=== PATIENT | female | born 1995 | race Caucasian/White ===

== ENCOUNTER 2021-07-30 09:35 | Outpatient (REF) | payer OTHER, SELFPAY | END 2021-07-30 09:36 | disposition home or self-care (01) | LOC: HO.LAB 09:35 | PROVIDERS: PCP Internal Medicine; Visit Provider Internal Medicine | DX: Z20.822 Contact with and (suspected) exposure to COVID-19 (principal) | CPT/HCPCS: C9803; U0003; U0005 ==

== ENCOUNTER 2023-11-17 10:35 | Emergency (ER) | payer OTHER, SELFPAY ==
[2023-11-17 10:48] VITALS: BP 150/97; PULSE 77; RESP 18; TEMP 37.1; O2SAT 99; BMI 27.5
[2023-11-17 15:06] VITALS: BP 147/81; PULSE 78; RESP 18; TEMP 36.9; O2SAT 98
--- NOTE | 2023-11-17 15:11 | PC.NURSE ---
Pt brought in to be re-evaled in traige, pt told further imaging would be ordered, pt stated at this time she was refusing further work up and was going to leave and go elsewhere, education and emotional support provided to patient, pt still continues to want to leave at this time.
== END 2023-11-17 15:12 | disposition left against medical advice (07) ==
PROVIDERS: Emergency Provider Emergency Medicine; PCP Internal Medicine
DX: M54.50 Low back pain, unspecified (principal)
CPT/HCPCS: 99281

== ENCOUNTER 2025-01-11 15:50 | Outpatient (REF) | payer OTHER, SELFPAY ==
--- NOTE | 2025-01-11 | PFT_ITS ---
Flows: FEV1: 100 % of predicted at 3.36 L FVC: 98 % of predicted at 3.86 L FEV1/FVC: 87 % Bronchodilator response: Absent Volumes: Total lung capacity: 106 % of predicted at 5.59 L Residual volume: 146 % of predicted at 1.72 L Slow vital capacity: 95 % of predicted at 3.88 L Expiratory reserve volume: 34 % of predicted at 0.46 L Diffusion capacity: Normal Impression: No obstructive or restrictive ventilatory defect. No bronchodilator response. Decreased expiratory reserve volume suggests extrathoracic restriction likely secondary to abdominal obesity. MTDD
[2025-01-11 10:43] VITALS: PULSE 69; O2SAT 99
--- OUTSIDE RECORDS SUMMARY | 2025-01-11 15:52 | XMS_ITS | Encounter Summary ---
Author Organization [employer] Address [address] [facility] [address] [place] [address] Care Team Providers Care Metal Buggy Operator Name Role Phone Harris Hanks MD Primary Care Prov ider Reason for Referral * Consultation (Routine) - Closed Specialty Diagnoses / Procedures Referred By Contac t Referred To Contact Physical Therapy Diagnoses Chronic right-sided low back pain with right-sided sciatica Harris Hanks MD [address] [place] [phone] Phone: tel: fax: [facility] [address] [place] [address] Phone: tel: fax: Referral ID Status Reason Start Date Expiration Date V isits Requested Visits Authorized [id number] Closed Specialty Services Required 12/28/2024 12/28/2025 1 1 * PFT (Routine) - Authorized Specialty Diagnoses / Procedures Referred By Contac t Referred To Contact Diagnoses Chronic cough Procedures Pulmonary Function Test Harris Hanks MD [address] [place] [id number] Phone: tel: fax: [address] Phone: tel: fax: Referral ID Status Reason Start Date Expiration Date V isits Requested Visits Authorized [id number] Authorized 12/28/2024 12/28/2025 1 1 Encounter Details Date Type Department Care Team (Late st Contact Info) Description 12/28/2024 11:30 AM EST Office Visit [facility] MED & PEDS [address] [place] [address] Harris Hanks MD [address] [place] [address] Chronic right-sided low back pain with right-sided sciatica (Primary Dx); Gastroesophageal reflux disease without esophagitis; Chronic cough; Obesity (BMI 30-39.9) Social History Tobacco Use Types Packs/Day Years Used Date Smoking Tobacco: Never Passive Smoke Exposure: Never Smokeless Tobacco: Never Alcohol Use Standard Drinks/Week Comments Yes 0 (1 standard drink = 0.6 oz pur e alcohol) social vodka Depression Answer Date Recorded Patient Health Questionnaire-9 Score 4 12/28/2024 Patient Health Questionnaire-9 Score 4 12/28/2024 Last PHQ-9: Questionnaire Data Not on file 0 12/28/2024 Housing Stability Answer Date Recorded What is your housing situation today? I have yudy deng 12/21/[address] you li ve. Do you have problems with any of the following? None of the above 12/21/2024 Food Insecurity Answer Date Recorded Within the past 12 months, y ou worried that your food would run out before you got money to buy more: Never True 12/21/2024 Within the past 12 months,th e food you bought just didn't last and you didn't have enough money to get more: Never True Transportation Answer Date Recorded In the past 12 months, has l ack of transportation kept you from medical appts, meetings, work or from getting things needed for daily living? No 12/21/2024 Utilities Answer Date Recorded In the past 12 months, has t he electric, gas, oil or water company threatened to shut off services in your home? No 12/21/2024 Depression Answer Date Recorded Patient Health Questionnaire-2 Score 0 12/28/2024 Internet Access Answer Date Recorded Internet Access Q1 Yes 12/21/2024 Internet Access Q2 Not on file 12/21/2024 Comments No Sex and Gender Information Value Date Recorded Sex Assigned at Female 01/13/2023 2:16 PM EST Legal Sex Female 2:06 PM EST Gender Identity Female 01/13/2023 2:16 PM EST Sexual Orientation Straight 01/13/2023 2: 16 PM EST documented as of this encounter Last Filed Vital Signs Vital Sign Reading Time Taken Comments Blood Pressure 132/80 12/28/2024 11:22 AM EST Pulse 84 12/28/2024 11:22 AM EST Temperature 36.6 ??C (97.9 ??F) 12/28/2024 11:[address] Respiratory Rate 20 12/28/2024 11:22 AM EST Oxygen Saturation 99% 12/28/2024 11:22 AM EST Inhaled Oxygen Concentration - - Weight 85 kg (187 lb 6.4 oz) 12/28/2024 11:22 AM EST Height 166 cm (5' 5.35 ) 12/28/2024 11:22 AM EST Body Mass Index 30.85 12/28/2024 11:22 AM EST documented in this encounter Progress Notes * Harris Garcia MD - 12/28/2024 11:30 AM EST Subjective Patient ID: Lori Mejia is a 29 y.o. female who presents for No chief complaint on file.. Cough This is a chronic problem. The cough is Non-productive. Pertinent negatives include no chills, ear congestion, fever or nasal congestion. Review of Systems Constitutional: Negative for chills and fever. Respiratory: Positive for cough. Objective Physical Exam Constitutional: Appearance: Normal appearance. HENT: Right Ear: Tympanic membrane, ear canal and external ear normal. There is no impacted cerumen. Left Ear: Tympanic membrane, ear canal and external ear normal. There is no impacted cerumen. Cardiovascular: Rate and Rhythm: Normal rate and regular rhythm. Heart sounds: No murmur heard. Pulmonary: Effort: Pulmonary effort is normal. No respiratory distress. Breath sounds: No stridor. No wheezing or rhonchi. Abdominal: General: Abdomen is flat. There is no distension. Palpations: There is no mass. Tenderness: There is no abdominal tenderness. Hernia: No hernia is present. Musculoskeletal: General: Normal range of motion. Cervical back: Normal range of motion. No rigidity or tenderness. Lymphadenopathy: Cervical: No cervical adenopathy. Neurological: General: No focal deficit present. Mental Status: She is alert and oriented to person, place, and time. Psychiatric: Mood and Affect: Mood normal. Behavior: Behavior normal. Assessment/Plan Problem List Items Addressed This Visit Chronic right-sided low back pain with right-sided sciatica - Primary Will refer to PT, encouraged to avoid heavy lofting, wear appropriate shoes Relevant Orders Referral to Physical Therapy Gastroesophageal reflux disease without esophagitis Will provide omeprazole, encouraged lifestyle modification, follow up in 1 month Chronic cough Will order Pft, could be related to gerd, follow up in 1 month Relevant Orders Pulmonary Function Test Other Visit Diagnoses Obesity (BMI 30-39.9) Relevant Orders CBC auto differential Comprehensive Metabolic Panel Lipid Panel, Standard TSH W/Reflex to FT4 Hemoglobin A1c documented in this encounter Miscellaneous Notes * Assessment & Plan Note - Harris Garcia MD - 12/28/2024 12:05 PM ESTAssociated Problem(s): Chronic cough Will order Pft, could be related to gerd, follow up in 1 month * Assessment & Plan Note - Harris Garcia MD - 12/28/2024 12:04 PM ESTAssociated Problem(s): Gastroesophageal reflux disease without esophagitis Will provide omeprazole, encouraged lifestyle modification, follow up in 1 month * Assessment & Plan Note - Harris Garcia MD - 12/28/2024 12:02 PM ESTAssociated Problem(s): Chronic right-sided low back pain with right-sided sciatica Will refer to PT, encouraged to avoid heavy lofting, wear appropriate shoes documented in this encounter Plan of Treatment Upcoming Encounters Date Type Department Care Team (Late st Contact Info) Description 01/24/2025 10:45 AM EST Office Visit [facility] MED & PEDS [address] [place] [address] Dayo Truong MD [address] [place] [address] 01/25/2025 11:00 AM EST Office Visit [facility] ADULT DENTAL [address], [place] [phone] Lukas Coyne DMD [address] [place] [address] 01/26/2025 8:30 AM EST Telemedicine [facility] MED [facility] PED[facility] [address] [place], [place] [phone] Harris Hanks MD [address] [place] [address] 04/19/2025 4:00 PM EDT Office Visit [facility] [address] [place], [place] [phone] Mia Christian [address] [place], [place] [phone] Scheduled Orders Name Type Priority Associated Diagnoses Orde r Schedule Pulmonary Function Test PFT Routine Chronic cough Expected: 12/28/2024, Expires: 06/27/2025 CBC auto differential Lab Routine Obesity (BMI 30-39.9) Expected: 12/28/2024 (Approximate), Expires: 12/28/2025 Comprehensive Metabolic Panel Lab Routine Obesity (BMI 30-39.9) Expected: 12/28/2024 (Approximate), Expires: 12/28/2025 Lipid Panel, Standard Lab Routine Obesity (BMI 30-39.9) Expected: 12/28/2024 (Approximate), Expires: 12/28/2025 TSH W/Reflex to FT4 Lab Routine Obesity (BMI 30-39.9) Expected: 12/28/2024 (Approximate), Expires: 12/28/2025 Hemoglobin A1c Lab Routine Obesity (BMI 30-39.9) Expected: 12/28/2024 (Approximate), Expires: 12/28/2025 Scheduled Referrals Name Type Priority Associated Diagnoses Orde r Schedule Referral to Physical Therapy Outpatient Referral Routine Chronic right-sided low back pain with right-sided sciatica Expected: 12/28/2024 (Approximate), Expires: 12/28/2025 documented as of this encounter Visit Diagnoses Diagnosis Chronic right-sided low back pain with right-sided sciatica- Primary Gastroesophageal reflux disease without esophagitis Esophageal reflux Chronic cough Cough Obesity (BMI 30-39.9) documented in this encounter Additional Health Concerns Assessment Noted Time PHQ-9 Depression Total Score: 4 12/28/19 25 11:24 AM EST documented as of this encounter Care Teams Metal Buggy Operator Relationship Specialty Start Date End Date Harris Hanks MD [address] [place] [id number] PCP - General Internal Medicine 11/10/24 documented as of this encounter
--- OUTSIDE RECORDS SUMMARY | 2025-01-11 15:52 | XMS_ITS | Encounter Summary ---
Author Organization [employer] Address [address] [facility] [address] [place] [address] Care Team Providers Care Degree Clerk Name Role Phone Harris Hanks MD Primary Care Prov ider Reason for Visit * Reason Comments Filling Patient presents tod ay for fillings Yin MONSIVAIS Encounter Details Date Type Department Care Team (Late st Contact Info) Description 01/02/2025 3:00 PM EST Office Visit [facility] ADULT DENTAL [address] [place], [place] [phone] Lukas Coyne, DMD [address] [place], [place] [phone] Dental caries (Primary Dx) Social History Tobacco Use Types Packs/Day Years [...] PM EST documented as of this encounter Progress Notes * Lukas Coyne DMD - 01/02/2025 3:00 PM EST Patient ID: Lori Mejia is a 29 y.o. female. Time Out: Timeout Date: 01/02/25, Timeout Time: 1517 (JOJO #30,31) Location: [facility] Tooth: #30 and #31 Procedure: Roman Catholic Verified the above with patient, senior it assistant, and provider. Confirmed via patient's chart, intraorally and by radiographs. Automotive Technician: not applicable Chief Complaint Patient presents with Filling Patient presents today for fillings Yin MONSIVAIS Medical Hx: Vitals: There were no vitals taken for this visit. Medications, Med Hx reviewed with patient and updated in chart. Consent Obtained: The risks, benefits, indications, potential complications, and alternatives were explained to the patient and informed consent was obtained with good understanding. Treatment Provided: Dental procedures in this visit [id number] - RESTORATIVE - RESIN-BASED COMPOSITE RESTORATIONS - DIRECT - RESIN-BASED COMPOSITE - ONE SURFACE, POSTERIOR 31 O (Completed) Service provider: Lukas Coyne DMD Billing provider: Lukas Coyne DMD [id number] - RESTORATIVE - RESIN-BASED COMPOSITE RESTORATIONS - DIRECT - RESIN-BASED COMPOSITE - ONE SURFACE, POSTERIOR 30 O (Completed) Service provider: Lukas Coyne DMD Billing provider: Lukas Coyne DMD [id number] - ADJUNCTIVE GENERAL SERVICES - PROFESSIONAL VISITS - CASE PRESENTATION, SUBSEQUENT TO DETAILED AND EXTENSIVE TREATMENT PLANNING (Completed) Service provider: Lukas Coyne DMD Billing provider: Lukas Coyne DMD Diagnosis: primary caries into mid layer of dentin #31-O and recurrent caries into dentin #30-O Pt asymptomatic Topical: 20% Benzocaine Anesthesia: 2% Lidocaine (Xylocaine) w/ 1:100,000 epinephrine and 4% Septocaine (Articaine) w/ 1:200,000 epinephrine Number of Cartridges: 1 of each Injection Type: Buccal infiltration and Inferior alveolar nerve block Confirmed profound anesthesia. Isolation: high speed suction, cotton rolls, and cheek guard Prep: All caries removed, Existing mandaeism removed, and Preparation finalized Elected to leave B amalgam on #31. Sound at this time. Will monitor. Note distal staining on #19. Not cavitated and radiographically appears isolated to middle of enamel. Will monitor. Matrix: None Etch: 37% Phosphoric Acid Etch Desensitizer: Gluma Liner/Base: None Duran: I-Duran Roman Catholic Material: Voco Grandioso Packable Shade: A2 Polished. Occlusion & contacts verified. Patient satisfied with comfort and esthetics. Patient tolerated procedure well. Post-operative instructions were given. Patient departed alert, oriented, and in stable condition. NV: EXT #1,16,17,32 Psychiatric Social Worker: Yin Lazaro Dentist: uLkas Coyne DMD documented in this encounter Plan of Treatment Upcoming Encounters Date Type Department Care Team (Late st Contact Info) Description 01/24/2025 10:45 AM EST Office Visit [facility] MED [facility] PEDS [address] [place] [address] Dayo Truong MD [address] [place] [address] 01/25/2025 11:00 AM EST Office Visit [facility] ADULT DENT[facility] [address] [place] [address] Lukas Coyne DMD [address] [place] [address] 01/26/2025 8:30 AM EST Telemedicine [facility] MED [facility] PEDS [address] [place] [address] Harris Hanks MD [address] [place] [address] 04/19/2025 4:00 PM EDT Office Visit [facility] [address] [place], [place] [phone] Mia Christian [address] [place], [place] [phone] documented as of this encounter Procedures Procedure Name Priority Date/Time Associated Diagnosis Comments 30 O RESIN-BASED COMPOSITE - 1 SURF, POSTERIOR Routine 01/02/2025 3:00 PM EST Dental caries 31 O RESIN-BASED COMPOSITE - 1 SURF, POSTERIOR Routine 01/02/2025 3:00 PM EST Dental caries CASE PRESENTATION, DETAILED AND EXTENSIVE TREATMENT PLANNING Routine 01/02/2025 3:00 PM EST Dental caries documented in this encounter Visit Diagnoses Diagnosis Dental caries- Primary Unspecified dental caries documented in this encounter Additional Health Concerns Assessment Noted Time PHQ-9 Depression Total Score: 4 12/28/19 25 11:24 AM EST documented as of this encounter Care Teams Degree Clerk Relationship Specialty Start Date End Date Harris Hanks MD [address] [place] [address] PCP - General Internal Medicine 11/10/24 documented as of this encounter
--- OUTSIDE RECORDS SUMMARY | 2025-01-11 15:52 | XMS_ITS | Encounter Summary ---
Author Organization [employer] Address [address] [place] [address] Care Team Providers Care Steam Shovel Oiler Name Role Phone Harris Hanks MD Primary Care Prov ider Encounter Details Date Type Department Care Team (Late st Contact Info) Description 12/27/2024 Orders Only [facility] MEDICINE [address] [place] [address] Provider, MD Gin Social History Tobacco Use Types Packs/Day Years [...] PM EST documented as of this encounter Plan of Treatment Upcoming Encounters Date Type Department Care Team ([facility] st Contact Info) Description 01/24/2025 10:45 AM EST Office Visit [facility] MED & PEDS [address] [place] [address] Dayo Truong MD [address] [place] [address] 01/25/2025 11:00 AM EST Office Visit [facility] ADULT DENTAL [address] [place] [address] Lukas Coyne DMD [address] [place] [address] 01/26/2025 8:30 AM EST Telemedicine [facility] MED & PEDS [address] [place] [address] Harris Hanks MD [address] [place] [address] 04/19/2025 4:00 PM EDT Office Visit [facility] DENTAL [address] [place], [place] [phone] Mia Christian [address] [place], [place] [phone] documented as of this encounter Procedures Procedure Name Priority Date/Time Associated Diagnosis Comments HM PAP/HPV Routine 04/09/2022 7:50 AM EDT documented in this encounter Results * HM PAP/HPV (04/09/2022 7:50 AM EDT) us Historical Provider HEALTH MAINTENANCE Final Result documented in this encounter Visit Diagnoses Not on filedocumented in this encounter Care Teams Steam Shovel Oiler Relationship Specialty Start Date End Date Harris Hanks MD [address] [place] [address] PCP - General Internal Medicine 11/10/24 documented as of this encounter
--- OUTSIDE RECORDS SUMMARY | 2025-01-11 15:52 | XMS_ITS | Encounter Summary ---
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 (Primary Dx); Dental caries Social History Tobacco Use Types Packs/Day Years Used Date Smoking Tobacco: Never Passive Smoke Exposure: Never Smokeless Tobacco: Never Alcohol Use Standard Drinks/Week Comments Yes 0 (1 standard drink = 0.6 oz pur e alcohol) social vodka Comments No Sex and Gender Information Value Date Recorded Sex Assigned at Female 01/13/2023 2:16 PM EST Legal Sex Female 2:06 PM EST Gender Identity Female 01/13/2023 2:16 PM EST Sexual Orientation Straight 01/13/2023 2: 16 PM EST documented as of this encounter Last Filed Vital Signs Vital Sign Reading Time Taken Comments Blood Pressure 120/82 12/13/2024 3:42 PM EST Pulse - - Temperature - - Respiratory Rate - - Oxygen Saturation - - Inhaled Oxygen Concentration - - Weight - - Height - - Body Mass Index - - documented in this encounter Progress Notes * Lukas Coyne DMD - 12/13/2024 2:30 PM EST Patient ID: Lori Mejia is a 29 y.o. female. Time Out: Timeout Date: 12/13/24, Timeout Time: 1430 (Smith #17,18) Location: [facility] Tooth: #17 and #18 Procedure: Exam, X-rays, and Extraction Verified the above with patient, assistant statistician, and provider. Confirmed via patient's chart, intraorally and by radiographs. Scientific Programmer: not applicable Chief Complaint Patient presents with Filling Patient presents today for filling Yin MONSIVAIS Medical Hx: Vitals: Blood pressure 120/82. Medications, Med Hx reviewed with patient and updated in chart. Consent Obtained: The risks, benefits, indications, potential complications, and alternatives were explained to the patient and informed consent was obtained with good understanding. Treatment Provided: Dental procedures in this visit D2391 - RESTORATIVE - RESIN-BASED COMPOSITE RESTORATIONS - DIRECT - RESIN-BASED COMPOSITE - ONE SURFACE, POSTERIOR 17 O (Completed) Service provider: Lukas Coyne DMD Billing provider: Lukas Coyne DMD D2391 - RESTORATIVE - RESIN-BASED COMPOSITE RESTORATIONS - DIRECT - RESIN-BASED COMPOSITE - ONE SURFACE, POSTERIOR 18 O (Completed) Service provider: Lukas Coyne DMD Billing provider: Lukas Coyne DMD D0140 - LIMITED ORAL EVALUATION - PROBLEM FOCUSED (Completed) Service provider: Lukas Coyne DMD Billing provider: Lukas Coyne DMD D0270 - BITEWING - SINGLE RADIOGRAPHIC IMAGE (Completed) Service provider: Lukas Coyne DMD Billing provider: Lukas Coyne DMD D0220 - INTRAORAL - PERIAPICAL FIRST RADIOGRAPHIC IMAGE (Completed) Service provider: Lukas Coyne DMD Billing provider: Lukas Coyne DMD [id number] - ADJUNCTIVE GENERAL SERVICES - PROFESSIONAL VISITS - CASE PRESENTATION, SUBSEQUENT TO DETAILED AND EXTENSIVE TREATMENT PLANNING (Completed) Service provider: Lukas Coyne DMD Billing provider: Lukas Coyne DMD Exam: HPI: restos completed January 2024 Subjective: Pt states she has been having sensitivity to cold for a while Pt does not chew on L side Pt denies spontaneous pain Feels sensitivity when brushing or drinking cold drinks Objective: #18 - OB composite, fractured at occlusal surface - sensitive to air stimulation #17 - O decay - slight sensitive to air stimulation Cold testing: control (#30) #18 - sharp pain, hypersensitive, non-lingering #17 - normal Informed pt of findings and treatment recommendations including replacement of #18-O Pt advised to have third molars extracted, but smith completed on #17 since there is decay, and pt indicated she may want GA Reviewed long waiting list for GA. After consideration and discussion, pt open to completing EXTs here Exam completed for rest of dentition and updated treatment plan accordingly including restos and EXT third molars Pt previously had RCT #30 planned, but no note or visit associated with plan. Pt had sensation to cold testing. O amalgam fractured. 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 Isolation: high speed suction, cotton rolls, and cheek guard Prep: All caries removed, Existing mormonism removed, and Preparation finalized Left B composite on #18 as they were separate and smith was intact Matrix: None Etch: 37% Phosphoric Acid Etch Desensitizer: Gluma Liner/Base: None Duran: I-Duran Christian Material: Voco Grandioso Packable Shade: A2 Polished. Occlusion & contacts verified. Patient satisfied with comfort and esthetics. Patient tolerated procedure well. Post-operative instructions were given. Patient departed alert, oriented, and in stable condition. NV: continue restos Supervisor Drilling And Shooting: Yin ROMEO epidemiology intern Dentist: Lukas Coyne DMD documented in this encounter Plan of Treatment Upcoming Encounters Date Type Department Care Team (Late st Contact Info) Description 01/24/2025 10:45 AM EST Office Visit [facility] MED & PEDS [address] [place] [address] Dayo Truong MD [address] [place], [place] [phone] 01/25/2025 11:00 AM EST Office Visit [facility] ADULT DENTAL [address] [place], [place] [phone] Lukas Coyne DMD [address] [place] [address] 01/26/2025 8:30 AM EST Telemedicine [facility] MED & PEDS [address] [place], [place] [phone] Harris Hnaks MD [address] [place], [place] [phone] 04/19/2025 4:00 PM EDT Office Visit [facility] DENTAL [address] [place], [place] [phone] Mia Christian [address] [place], [place] [phone] Scheduled Orders Name Type Priority Associated Diagnoses Orde r Schedule 16 16 EXTRACTION, ERUPTED TOOTH OR EXPOSED ROOT (ELEVATION AND/OR FORCEPS REMOVAL) Dental Routine 1 Occurrences s tarting 12/13/2024 1 1 EXTRACTION, ERUPTED TOOTH OR EXPOSED ROOT (ELEVATION AND/OR FORCEPS REMOVAL) Dental Routine 1 Occurrences s tarting 12/13/2024 32 32 EXTRACTION, ERUPTED TOOTH OR EXPOSED ROOT (ELEVATION AND/OR FORCEPS REMOVAL) Dental Routine 1 Occurrences s tarting 12/13/2024 17 17 EXTRACTION, ERUPTED TOOTH OR EXPOSED ROOT (ELEVATION AND/OR FORCEPS REMOVAL) Dental Routine 1 Occurrences s tarting 12/13/2024 documented as of this encounter Procedures Procedure Name Priority Date/Time Associated Diagnosis Comments 18 O RESIN-BASED COMPOSITE - 1 SURF, POSTERIOR Routine 12/13/2024 2:30 PM EST 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 Dental caries 17 O RESIN-BASED COMPOSITE - 1 SURF, POSTERIOR Routine 12/13/2024 2:30 PM EST 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 Dental caries LIMITED ORAL EVALUATION - PROBLEM FOCUSED Routine 12/13/2024 2:30 PM EST 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 Dental caries INTRAORAL - PERIAPICAL FIRST RADIOGRAPHIC IMAGE Routine 12/13/2024 2:30 PM EST 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 Dental caries CASE PRESENTATION, DETAILED AND EXTENSIVE TREATMENT PLANNING Routine 12/13/2024 2:30 PM EST 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 Dental caries BITEWING - SINGLE RADIOGRAPHIC IMAGE Routine 12/13/2024 2:30 PM EST 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
--- OUTSIDE RECORDS SUMMARY | 2025-01-11 15:52 | XMS_ITS | Encounter Summary ---
Author Organization [employer] Address [address] [facility] [address] [place] [address] Care Team Providers Care Industrial Maintenance Technician Name Role Phone Harris Hanks MD Primary Care Prov ider Reason for Visit * Reason Comments Pre-visit Planning SDOH negative. Tobac co screening negative. Encounter Details Date Type Department Care Team ([facility] st Contact Info) Description 12/21/2024 Patient Outreach [facility] CHC MED & PEDS [address] [place], [place] [phone] Harris Hanks MD [address] [place], [place] [phone] Pre-visit Planning (SDOH negative. Tobacco screening negative.) Social History Tobacco Use Types Packs/Day Years Used Date Smoking Tobacco: Never Passive Smoke Exposure: Never Smokeless Tobacco: Never Alcohol Use Standard Drinks/Week Comments Yes 0 (1 standard drink = 0.6 oz pur e alcohol) social vodka Housing Stability Answer Date Recorded What is your housing situation today? I have yudy sing 12/21/[address] you li [...] off services in your home? No 12/21/2024 Internet Access Answer Date Recorded Internet Access Q1 Yes 12/21/2024 Internet Access Q2 Not on file 12/21/2024 Comments No Sex and Gender Information Value Date Recorded Sex Assigned at Female 01/13/2023 2:16 PM EST Legal Sex Female 2:06 PM EST Gender Identity Female 01/13/2023 2:16 PM EST Sexual Orientation Straight 01/13/2023 2: 16 PM EST documented as of this encounter Progress Notes * Pat Kramer - 12/21/2024 2:09 PM EST CC Pat Deleon placed successful outbound call to patient for pre-visit planning. Patient name and confirmed. Patient confirms appt date and time, and has transportation arrangements. Biggest concern for appointment at this time is no concerns. Appropriate screenings completed in anticipation ofappointment. documented in this encounter Plan of Treatment Upcoming Encounters Date Type Department Care Team ([facility] st Contact Info) Description 01/24/2025 10:45 AM EST Office Visit [facility] MED & PEDS [address] [place] [address] Dayo Truong MD [address] [place] [address] 01/25/2025 11:00 AM EST Office Visit [facility] ADULT DENTAL [address] [place] [address] Lukas Coyne DMD [address] [place] [address] 01/26/2025 8:30 AM EST Telemedicine [facility] MED & PEDS [address] [place] [address] Harris Hanks MD [address] [place] [address] 04/19/2025 4:00 PM EDT Office Visit [facility] DENTAL [address] [place] [phone] Mia Christian [address] [place], [place] [phone] documented as of this encounter Visit Diagnoses Not on filedocumented in this encounter Care Teams Industrial Maintenance Technician Relationship Specialty Start Date End Date Harris Hanks MD [address] [place] [address] PCP - General Internal Medicine 11/10/24 documented as of this encounter
--- OUTSIDE RECORDS SUMMARY | 2025-01-11 15:52 | XMS_ITS | Encounter Summary ---
Author Organization [employer] Address [address] [facility] 7t [place] [address] Care Team Providers Care Rn Radiation Name Role Phone Harris Hanks MD Primary Care Prov ider Reason for Visit * Reason Onset Date Comments Medication Question 01/03/2025 Encounter Details Date Type Department Care Team ([facility] Contact Info) Description 01/03/2025 Telephone [facility] CHC MED & PEDS [address] [place], [place] [phone] Harris Hanks MD [address] [place] [address] Medication Question Social History Tobacco Use Types Packs/Day Years [...] PM EST documented as of this encounter Miscellaneous Notes * Telephone Encounter - Lauren Hill RN - 01/03/2025 2:13 PM EST TC placed to pt regarding medication request. Pt states she was advised by dental to reach out to PCP for medication for anxiety for dental procedure. Message forwarded to PCP to review and advise. * Telephone Encounter - Sania Stephens - 01/03/2025 11:11 AM EST Pt requesting n anxiety med for a dental procedure for january 25. Pt states mental not ready for the appt documented in this encounter Plan of Treatment Upcoming Encounters Date Type Department Care Team (Late st Contact Info) Description 01/24/2025 10:45 AM EST Office Visit [facility] CHC MED & PEDS [address] [place] [address] Dayo Truong MD [address] [place] [address] 01/25/2025 11:00 AM EST Office Visit [facility] ADULT DENTAL [address] [place] [address] Lukas Coyne DMD [address] [place] [address] 01/26/2025 8:30 AM EST Telemedicine [facility] MED & PEDS [address] [place] [address] Harris Hanks MD [address] [place] [address] 04/19/2025 4:00 PM EDT Office Visit [facility] DENTAL [address] [place], [place] [phone] Mia Christian [address] [place], [place] [phone] documented as of this encounter Visit Diagnoses Not on filedocumented in this encounter Additional Health Concerns Assessment Noted Time PHQ-9 Depression Total Score: 4 12/28/19 25 11:24 AM EST documented as of this encounter Care Teams Rn Radiation Relationship Specialty Start Date End Date Harris Hanks MD [address] [place] [address] PCP - General Internal Medicine 11/10/24 documented as of this encounter
--- OUTSIDE RECORDS SUMMARY | 2025-01-11 15:52 | XMS_ITS | Encounter Summary ---
Author Organization [employer] Address [address] [facility] 7t [place] [address] Care Team Providers Care Fiscal Agent Name Role Phone Harris Hanks MD Primary Care Prov ider Encounter Details Date Type Department Care Team ([facility] st Contact Info) Description 01/03/2025 Orders Only [facility] CHC MED & PEDS [address] [place], [place] [phone] Harris Hanks MD [address] [place] [address] Social History Tobacco Use Types Packs/Day Years [...] Description 01/24/2025 10:45 AM EST Office Visit [facility] MED & PEDS [address] [place] [address] Dayo Truong MD [address] [place] [address] 01/25/2025 11:00 AM EST Office Visit [facility] ADULT DENTAL [address] [place] [address] Lukas Coyne DMD [address] [place] [address] 01/26/2025 8:30 AM EST Telemedicine [facility] MED & PEDS [address] [place] [address] Harris Hanks MD [address] [place] [address] 04/19/2025 4:00 PM EDT Office Visit [facility] DENTAL [address] [place], [place] [phone] Mia Christian [address] [place] [address] documented as of this encounter Visit Diagnoses Not on filedocumented in this encounter Additional Health Concerns Assessment Noted Time PHQ-9 Depression Total Score: 4 12/28/19 25 11:24 AM EST documented as of this encounter Care Teams Fiscal Agent Relationship Specialty Start Date End Date Harris Hanks MD [address] [place] [address] PCP - General Internal Medicine 11/10/24 documented as of this encounter
--- OUTSIDE RECORDS SUMMARY | 2025-01-11 15:53 | XMS_ITS | Encounter Summary ---
Author Organization [employer] Address [address] [facility] 7t [place] [address] Care Team Providers Care Kiss Machine Operator Name Role Phone Harris Hanks MD Primary Care Prov ider Encounter Details Date Type Department Care Team ([facility] st Contact Info) Description 12/30/2024 Telephone [facility] CHC MED & PEDS [address] [place], [place] [phone] Harris Hanks MD [address] [place] [address] Social History Tobacco Use Types Packs/Day Years [...] is your housing situation today? I have yuyd deng 12/21/[address] you [...] Description 01/24/2025 10:45 AM EST Office Visit [facility] MED & PEDS [address] [place] [address] Dayo Truong MD [address] [place] [address] 01/25/2025 11:00 AM EST Office Visit [facility] ADULT DENTAL [address] [place] [address] Lukas Coyen DMD [address] [place] [address] 01/26/2025 8:30 AM EST Telemedicine [facility] MED & PEDS [address] [place] [address] Harris Hakns MD 505 [place] [address] 04/19/2025 4:00 PM EDT Office Visit [facility] DENTAL [address] [place], [place] [phone] Mia Christian [address] [place], [place] [phone] documented as of this encounter Visit Diagnoses Not on filedocumented in this encounter Additional Health Concerns Assessment Noted Time PHQ-9 Depression Total Score: 4 12/28/19 25 11:24 AM EST documented as of this encounter Care Teams Kiss Machine Operator Relationship Specialty Start Date End Date Harris Hanks MD [address] [place] [address] PCP - General Internal Medicine 11/10/24 documented as of this encounter
--- OUTSIDE RECORDS SUMMARY | 2025-01-11 15:53 | XMS_ITS | Encounter Summary ---
Author Organization [employer] Address [address] [facility] [address] [place] [address] Care Team Providers Care Fuse Cup Expander Name Role Phone Harris Hanks MD Primary Care Prov ider Encounter Details Date Type Department Care Team (Late st Contact Info) Description 12/28/2024 Orders Only [facility] MEDICINE [address] [place] [address] Harris Hanks MD [address] [place] [address] Social History Tobacco Use Types Packs/Day Years [...] Description 01/24/2025 10:45 AM EST Office Visit [facility] MED & PEDS [address] [place] [address] Dayo Truong MD [address] [place] [address] 01/25/2025 11:00 AM EST Office Visit [facility] ADULT DENTAL [address] [place] [address] Lukas Coyne DMD [address] [place] [address] 01/26/2025 8:30 AM EST Telemedicine [facility] MED & PEDS [address] [place] [address] Harris Hanks MD [address] [place] [address] 04/19/2025 4:00 PM EDT Office Visit [facility] DENTAL [address] [place], [place] [phone] Mia Christian [address] [place], [place] [phone] documented as of this encounter Visit Diagnoses Not on filedocumented in this encounter Additional Health Concerns Assessment Noted Time PHQ-9 Depression Total Score: 4 12/28/19 25 11:24 AM EST documented as of this encounter Care Teams Fuse Cup Expander Relationship Specialty Start Date End Date Harris Hanks MD [address] [place] [address] PCP - General Internal Medicine 11/10/24 documented as of this encounter
--- OUTSIDE RECORDS SUMMARY | 2025-01-11 15:53 | XMS_ITS | Encounter Summary ---
Author Organization [employer] Address [address] [facility] 7t [place] [address] Care Team Providers Care Chronic Manager Name Role Phone Harris Hanks MD Primary Care Prov ider Encounter Details Date Type Department Care Team ([facility] st Contact Info) Description 01/06/2025 Orders Only [facility] CHC MED & PEDS [address] [place], [place] [phone] Harris Hanks MD [address] [place] [address] Social History Tobacco Use Types Packs/Day Years [...] Description 01/24/2025 10:45 AM EST Office Visit [facility] MED & PEDS [address] [place] [address] Dayo Truong MD [address] [place] [address] 01/25/2025 11:00 AM EST Office Visit [facility] ADULT DENTAL [address] [place] [address] Lukas Coyne DMD [address] [place] [address] 01/26/2025 8:30 AM EST Telemedicine [facility] MED & PEDS [address] [place] [address] Harris Hanks MD [address] [place] [address] 04/19/2025 4:00 PM EDT Office Visit [facility] DENTAL [address] [place], [place] [phone] Mia Christian [address] [place] [address] documented as of this encounter Visit Diagnoses Not on filedocumented in this encounter Additional Health Concerns Assessment Noted Time PHQ-9 Depression Total Score: 4 12/28/19 25 11:24 AM EST documented as of this encounter Care Teams Chronic Manager Relationship Specialty Start Date End Date Harris Hanks MD [address] [place] [address] PCP - General Internal Medicine 11/10/24 documented as of this encounter
--- OUTSIDE RECORDS SUMMARY | 2025-01-11 15:53 | XMS_ITS | Clinical Summary ---
Author Organization [employer] Address [address] [facility] [address] [facility] [address] [place] [address] Care Team Providers Care Furniture Builder Name Role Phone Harris Hanks MD Primary Care Prov ider Allergies Active Allergy Reactions Criticality Noted Date Comments Ibuprofen GI bleeding 2023 Tuna Flavoring Agent (Non-Screening) 11/04/2023 Medications Mometasone Furoate (Asmanex HFA) 100 MCG/ACT aerosolIndicatio ns:Acute exacerbation of asthma with allergic rhinitis Inhale 1 Act (100 mcg) 2 times daily. Rinse mouth after use. 13 g 5 Active albuterol 108 (90 Base) MCG/ACT inhalerIndicatio ns:Acute exacerbation of asthma with allergic rhinitis Inhale 2 puffs every 4 (four) hours if needed for wheezing. 18 g 5 12/08/19 26 Active fluticasone (Flonase) 50 MCG/ACT nasal sprayIndications :Acute exacerbation of asthma with allergic rhinitis Administer 1 spray into each nostril if needed in the morning and at bedtime for rhinitis. Shake gently. Before first use, prime pump. After use, clean tip and replace cap. 16 g 5 12/08/19 26 Active Omeprazole 20 MG tablet delayed-release Take 1 tablet (20 mg) by mouth Once per day. 30 tablet 1 5 Active LORazepam (Ativan) 0.5 MG tablet Take 1 tablet (0.5 mg) by mouth every 8 (eight) hours if needed for anxiety for up to 1 day. 2 tablet 5 Active predniSONE (Deltasone) 20 MG tabletIndication s:Acute exacerbation of asthma with allergic rhinitis Take 2 tablets (40 mg) by mouth Once per day for 5 days. 10 tablet 5 12/13/19 25 amoxicillin-clav ulanate (Augmentin) 875-125 MG tabletIndication s:Left otitis media, unspecified otitis media type Take 1 tablet by mouth 2 times daily for 5 days. 10 tablet 5 12/13/19 25 Active Problems Problem Noted Date Diagnosed Date Chronic right-sided low back pain with right-saira ed sciatica 12/28/2024 Assessment & Plan (12/28/2024 12:02 PM EST): Will refer to PT, encouraged to avoid heavy lofting, wear appropriate shoes Gastroesophageal reflux disease without esophagi tis 12/28/2024 Assessment & Plan (12/28/2024 12:04 PM EST): Will provide omeprazole, encouraged lifestyle modification, follow up in 1 month Chronic cough 12/28/2024 Assessment & Plan (12/28/2024 12:05 PM EST): Will order Pft, could be related to gerd, follow up in 1 month Encounter for medical examination to establish c are 11/10/2024 Assessment & Plan (11/10/2024 1:32 PM EST): Last pcp follow up over 1 year No er visit on the past year Hospitalization: delivery Pmhx: - Pshx:- All: tuna Meds:- , sexually active, has vasectomy Menarche 13yrs LMP: 10/12/24 A3 Skin tag 11/10/2024 Assessment & Plan (11/10/2024 1:32 PM EST): Multiple skin tag on forehead, neck, will refer to dermatology for removal Encounters Date Type Department Care Team Description 01/06/2025 Orders Only [facility] [address] [place] [address] Harris Hanks MD 01/03/2025 Orders Only [facility] [address] [place] [address] Harris Hanks MD 01/03/2025 Telephone [facility] [address] [place] [address] Harris Hanks MD Medication Question 01/02/2025 3:00 PM EST Office Visit [facility] [address] [place] [address] Lukas Coyne DMD Dental caries (Primary Dx) 12/30/2024 2:30 PM EST Office Visit [facility] [address] [place] [address] Lukas Coyne DMD Dental caries (Primary Dx) 12/30/2024 Telephone [facility] [address] [place] [address] Harris Hanks MD 12/28/2024 11:30 AM EST Office Visit [facility] [address] [place] [address] Harris Hanks MD Chronic right-sided low back pain with right-sided sciatica (Primary Dx); Gastroesophageal reflux disease without esophagitis; Chronic cough; Obesity (BMI 30-39.9) 12/28/2024 Orders Only [facility] [address] [place] [phone] Harris Hanks MD 12/28/2024 Travel 12/27/2024 Orders Only [facility] [address] [place] [address] Gin Spencer MD 12/21/2024 Patient Outreach [facility] [address] [place] [address] Harris Hanks MD Pre-visit Planning (SDOH negative. 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 (Primary Dx); Dental caries 12/08/2024 3:00 PM EST Office Visit [facility] [address] [place] [address] Fiona Mckinney MD Acute exacerbation of asthma with allergic rhinitis (Primary Dx); Left otitis media, unspecified otitis media type 12/08/2024 Travel 11/10/2024 1:00 PM EST Telemedicine [facility] [address] [place] [address] Harris Hanks MD Encounter for medical examination to establish care (Primary Dx); Skin tag 11/10/2024 Travel 11/09/2024 Telephone [facility] [address] [place] [address] Jelena Castañeda MA 10/12/2024 5:00 PM EST Office Visit [facility] [address] [place], [place] [phone] Mia Christian Dental caries (Primary Dx) from Last 3 Months Immunizations Name Administration Dates Next Due Moderna Covid-19 Vaccine 12+ 01/14/2023 Family History Medical History Relation Name Comments Diabetes Father Hypertension Father No Known Problems Mother Breast cancer Mother's Sister Relation Name Status Comments Father Mother Mother's Sister Social History Tobacco Use Types Packs/Day Years Used Date Smoking Tobacco: Never Passive Smoke Exposure: Never Smokeless Tobacco: Never Tobacco Cessation:Counseling Given: Not Answered Alcohol Use Standard Drinks/Week Comments Yes 0 (1 standard drink = 0.6 oz pur e alcohol) social vodka Depression Answer Date Recorded Patient Health Questionnaire-9 Score 4 12/28/2024 Patient Health Questionnaire-9 Score 4 12/28/2024 Last PHQ-9: Questionnaire Data Not on file 0 12/28/2024 Housing Stability Answer Date Recorded What is your housing situation today? I have yudy sowmya 12/21/[address] you li [...] Orientation Straight 01/13/2023 2: 16 PM EST Last Filed Vital Signs Vital Sign Reading [...] Mass Index 30.85 12/28/2024 11:22 AM EST Plan of Treatment Upcoming Encounters Date Type Department Care Team (Late st Contact Info) Description 01/24/2025 10:45 AM EST Office Visit [facility] [address] [place] [address] Dayo Truong MD [address] [place] [address] 01/25/2025 11:00 AM EST Office Visit [facility] [address] [place] [address] Lukas Coyne DMD [address] [place] [address] 01/26/2025 8:30 AM EST Telemedicine [facility] [address] [place], [place] [phone] Harris Hanks MD [address] [place] [address] 04/19/2025 4:00 PM EDT Office Visit [facility] [address] [place], [place] [phone] Mia Christian [address] [place], [place] [phone] Health Maintenance Due Date Last Done Comments HIV Screening 1997 Lipid Panel 1997 Family Planning (PISQ) 2012 Hepatitis C Screening 2015 Pneumococcal Vaccine: Pediatrics (0 to 5 Years) and At-Risk Patients (6 to 49) Years) (1 of 2 - PCV) 2016 COVID-19 Vaccine (3 - season) 2024 01/14/2023, 12/12/2022 Influenza Vaccine (#1) 2024 6, 08/17/2012, 10/31/2003 HPV/Cotest 04/09/2025 Pap Smear 04/09/2025 04/09/2022 Dental Oral Exam 04/12/2025 10/12/2024 Dental Prophylaxis 04/12/2025 10/12/2024, 0 07/05/2024, 11/05/2023 Dental X-Ray: Bitewings 12/14/2025 12/13/19, 10/12/2024, 01/22/2024 SDOH Screening 12/21/2025 12/21/2024 Alcohol/Substance Use Screening 12/28/2025 12/28/2024 Depression Screening 12/28/2025 12/28/2024, 12/28/19 Tobacco Screening 01/02/2026 01/02/2025 Dental X-Ray: Full Mouth 01/22/2027 01/22/2024, 11/1 02/2023 DTaP/Tdap/Td Vaccines (9 - Td or Tdap) 07/31/2032 07/31/2022, 12/11/2017, 05/09/2008, Additional history exists Zoster Vaccines (1 of 2) 2047 RSV Patients and Patients Aged 60 years or older (1 - 1-dose 75+ series) 2072 IPV Vaccines Completed 08/25/2002, 02/1999, 02/05/1998, Additional history exists HPV Vaccines Completed 11/09/2008, 06/23, 05/09/2008 Hepatitis A Vaccines Completed 02/09/2012, 02/08/20 11 Meningococcal Vaccine Aged Out 07/28/2014, 012 No longer eligible based on patient's age to complete this topic Hepatitis B Vaccines Completed 02/04/2023, 04/09/1998, 1997, Additional history exists HIB Vaccines Aged Out No longer eligi ble based on patient's age to complete this topic RSV under 20 months Aged Out No longe r eligible based on patient's age to complete this topic Rotavirus Vaccines Aged Out No longer eligible based on patient's age to complete this topic Procedures Procedure Name Priority Date/Time Associated Diagnosis Comments CASE PRESENTATION, DETAILED AND EXTENSIVE TREATMENT PLANNING Routine 01/02/2025 3:00 PM EST Dental caries 30 O RESIN-BASED COMPOSITE - 1 SURF, POSTERIOR Routine 01/02/2025 3:00 PM EST Dental caries 31 O RESIN-BASED COMPOSITE - 1 SURF, POSTERIOR Routine 01/02/2025 3:00 PM EST Dental caries CASE PRESENTATION, DETAILED AND EXTENSIVE TREATMENT PLANNING Routine 12/30/2024 2:30 PM EST Dental caries 15 O RESIN-BASED COMPOSITE - 1 SURF, POSTERIOR Routine 12/30/2024 2:30 PM EST Dental caries 4 O RESIN-BASED COMPOSITE - 1 SURF, POSTERIOR Routine 12/30/2024 2:30 PM EST Dental caries CASE PRESENTATION, DETAILED AND EXTENSIVE TREATMENT PLANNING Routine 12/13/2024 2:30 PM EST 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 Dental caries INTRAORAL - PERIAPICAL FIRST RADIOGRAPHIC IMAGE Routine 12/13/2024 2:30 PM EST 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 Dental caries BITEWING - SINGLE RADIOGRAPHIC IMAGE Routine 12/13/2024 2:30 PM EST 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 Dental caries LIMITED ORAL EVALUATION - PROBLEM FOCUSED Routine 12/13/2024 2:30 PM EST 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 Dental caries 18 O RESIN-BASED COMPOSITE - 1 SURF, POSTERIOR Routine 12/13/2024 2:30 PM EST 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 Dental caries 17 O RESIN-BASED COMPOSITE - 1 SURF, POSTERIOR Routine 12/13/2024 2:30 PM EST 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 Dental caries POCT RAPID COVID ANTIGEN Routine 12/08/2024 3:31 PM EST Acute exacerbation of asthma with allergic rhinitis POCT INFLUENZA B (ID NOW RAPID MOLECULAR) Routine 12/08/2024 3:29 PM EST Acute exacerbation of asthma with allergic rhinitis POCT INFLUENZA A (ID NOW RAPID MOLECULAR) Routine 12/08/2024 3:29 PM EST Acute exacerbation of asthma with allergic rhinitis PERIODIC ORAL EVALUATION - ESTABLISHED PATIENT Routine 10/12/2024 5:00 PM EST PROPHYLAXIS - ADULT Routine 10/12/2024 5 :00 PM EST CASE PRESENTATION, DETAILED AND EXTENSIVE TREATMENT PLANNING Routine 10/12/2024 5:00 PM EST BITEWINGS - 4 RADIOGRAPHIC IMAGES Routine 10/12/2024 5:00 PM EST INTRAORAL - COMPLETE SERIES OF RADIOGRAPHIC IMAGES Routine 01/22/2024 11:00 AM EST HM PAP/HPV Routine 04/09/2022 7:50 AM EDT from Last 3 Months or Most Recently Relevant to Health Maintenance Results * POCT Rapid COVID Ag (12/08/2024 3:31 PM EST) Rapid COVID Ag Negative QC Media Lot # Comment:[id number] Lot# Expiration Date Comment:02/07/2026 Swab 12/08/2024 3:31 PM EST Fiona Mckinney MD POINT OF CARE TEST ENTER/EDIT ORDERABLES Final Result * Influenza B (ID NOW Rapid Molecular) (12/08/2024 3:29 PM EST) Influenza B Negative Negative, Indeterminate [facility] QC Media Lot # [facility] Comment:[id number] Lot# Expiration Date [facility] Comment:03/22/2025 Swab 12/08/2024 3:29 PM EST Fiona Mckinney MD POINT OF CARE TEST ENTER/EDIT ORDERABLES Edited Result - Final Performing Organization Address [facility]/ZIP Co de Phone Number [facility] [address] [place] [address] [phone] * Influenza A (ID NOW Rapid Molecular) (12/08/2024 3:29 PM EST) Influenza A Negative Negative, Indeterminate [facility] QC Media Lot # [facility] Comment:[id number] Lot# Expiration Date [facility] Comment:03/22/2025 Swab 12/08/2024 3:29 PM EST Fiona Mckinney MD POINT OF CARE TEST ENTER/EDIT ORDERABLES Edited Result - Final Performing Organization Address [facility] Co de Phone Number [facility] [address] [place] [address] [phone] * HM PAP/HPV (04/09/2022 7:50 AM EDT) Historical Provider HEALTH MAINTENANCE Final Result from Last 3 Months or Most Recently Relevant to Health Maintenance Insurance [facility] - HSN FULL (MEDICAID) Care Teams Furniture Builder Relationship Specialty Start Date End Date Harris Hanks MD [address] [place] [phone] PCP - General Internal Medicine 11/10/24
--- OUTSIDE RECORDS SUMMARY | 2025-01-11 15:53 | XMS_ITS | Encounter Summary ---
Author Organization [employer] Address [address] [place] [address] Care Team Providers Care Shotgun Shell Loading Machine Operator Name Role Phone Harris Hanks MD Primary Care Prov ider Encounter Details Date Type Department Care Team (Latest Contact Info) Description 12/28/2024 Travel Social History Tobacco Use Types Packs/Day Years [...] t he electric, gas, oil or water Casual Steps threatened to shut off services in your [...] 01/24/2025 10:45 AM EST Office Visit [facility] [address] [place] [address] Dayo Truong MD [address] [place] [address] 01/25/2025 11:00 AM EST Office Visit [facility] [address] [place] [address] Lukas Coyne DMD [address] [place] [address] 01/26/2025 8:30 AM EST Telemedicine [facility] [address] [place] [address] Harris Hanks MD [address] [place] [address] 04/19/2025 4:00 PM EDT Office Visit [facility] [address] [place], [place] [phone] Mia Christian [address] [place], [place] [phone] documented as of this encounter Visit Diagnoses Not on filedocumented in this encounter Additional Health Concerns Assessment Noted Time PHQ-9 Depression Total Score: 4 12/28/19 25 11:24 AM EST documented as of this encounter Care Teams Shotgun Shell Loading Machine Operator Relationship Specialty Start Date End Date Harris Hanks MD [address] [place] [id number] PCP - General Internal Medicine 11/10/24 documented as of this encounter
--- OUTSIDE RECORDS SUMMARY | 2025-01-11 15:53 | XMS_ITS | Encounter Summary ---
Author Organization [employer] Address [address] [place] [address] Care Team Providers Care Skip Load Driver Name Role Phone Harris Hanks MD Primary Care Prov ider Reason for Visit * Reason Comments Filling Encounter Details Date Type Department Care Team ([facility] st Contact Info) Description 12/30/2024 2:30 PM EST Office Visit [facility] [address] [place], [place] [phone] Lukas Coyne, DMD [address] [place] [address] Dental caries (Primary Dx) Social History Tobacco [...] Progress Notes * Lukas Coyne DMD - 12/30/2024 2:30 PM EST Patient ID: Lori Mejia is a 29 y.o. female. Time Out: Timeout Date: 12/30/24, Timeout Time: 1456 (Fillings) Location: [facility] Tooth: #4 and #15 Procedure: Mosque Verified the above with patient, bookkeeper assistant, and provider. Confirmed via patient's chart, intraorally and by radiographs. Medical Clerk: not applicable Chief Complaint Patient presents with Filling Medical Hx: Vitals: There were no vitals [...] - RESIN-BASED COMPOSITE - ONE SURFACE, POSTERIOR 4 O (Completed) Service provider: Lukas Coyne DMD Billing provider: Lukas Coyne DMD [id number] - RESTORATIVE - RESIN-BASED COMPOSITE RESTORATIONS - DIRECT - RESIN-BASED COMPOSITE - ONE SURFACE, POSTERIOR 15 O (Completed) Service provider: Lukas Coyne DMD Billing provider: Lukas Coyne DMD [id number] - ADJUNCTIVE GENERAL SERVICES - PROFESSIONAL VISITS - CASE PRESENTATION, SUBSEQUENT TO DETAILED AND EXTENSIVE TREATMENT PLANNING (Completed) Service provider: Lukas Coyne DMD Billing provider: Lukas Coyne DMD Diagnosis: primary caries into dentin #4-O and #15-O Pt asymptomatic and doing well following previous nondenominational, no more sensitivity Topical: 20% Benzocaine Anesthesia: 4% Septocaine (Articaine) w/ 1:200,000 epinephrine Number of Cartridges: 1 (05. per side) Injection Type: Buccal infiltration Confirmed profound anesthesia. Isolation: high speed suction, cotton rolls, and cheek guard Prep: All caries removed and Preparation finalized Matrix: None Etch: 37% Phosphoric Acid Etch Desensitizer: Gluma Liner/Base: None Duran: I-Duran Mosque Material: Voco Grandioso Packable Shade: A2 Polished. Occlusion & contacts verified. Patient satisfied with comfort and esthetics. Patient tolerated procedure well. Post-operative instructions were given. Patient departed alert, oriented, and in stable condition. NV: #30,31 restos Broom Handle Dipper: Yin Brooks Dentist: Lukas Coyne DMD documented in this encounter Plan of Treatment Upcoming Encounters Date Type Department Care Team (Late st Contact Info) Description 01/24/2025 10:45 AM EST Office Visit [facility] [address] [place] [address] Dayo Truong MD [address] [place] [address] 01/25/2025 11:00 AM EST Office Visit [facility] [address] [place] [address] Lukas Coyne DMD [address] [place] [address] 01/26/2025 8:30 AM EST Telemedicine [facility] [address] [place] [address] Harris Hanks MD [address] [place] [address] 04/19/2025 4:00 PM EDT Office Visit [facility] [address] [place], [place] [phone] Mia Christian [address] [place], [place] [phone] documented as of this encounter Procedures Procedure Name Priority Date/Time Associated Diagnosis Comments 15 O RESIN-BASED COMPOSITE - 1 SURF, POSTERIOR Routine 12/30/2024 2:30 PM EST Dental caries 4 O RESIN-BASED COMPOSITE - 1 SURF, POSTERIOR Routine 12/30/2024 2:30 PM EST Dental caries CASE PRESENTATION, DETAILED AND EXTENSIVE TREATMENT PLANNING Routine 12/30/2024 2:30 PM EST Dental caries documented in this encounter Visit Diagnoses Diagnosis Dental caries- Primary Unspecified dental caries documented in this encounter Additional Health Concerns Assessment Noted Time PHQ-9 Depression Total Score: 4 12/28/19 25 11:24 AM EST documented as of this encounter Care Teams Skip Load Driver Relationship Specialty Start Date End Date Harris Hansk MD [address] [place] [id number] PCP - General Internal Medicine 11/10/24 documented as of this encounter
== END 2025-01-11 15:51 | disposition home or self-care (01) ==
LOC: HO.RESP 15:50
PROVIDERS: PCP Internal Medicine; Visit Provider Internal Medicine
DX: R05.3 Chronic cough (principal)
CPT/HCPCS: 94010; 94640; 94727; 94729

== ENCOUNTER → 2025-01-11 16:00 | Outpatient (BNV) | payer OTHER, SELFPAY | PROVIDERS: PCP Internal Medicine; Visit Provider Internal Medicine Pulmonary Disease | DX: R05.9 Cough, unspecified (principal) | CPT/HCPCS: 94060; 94727; 94729 ==

== ENCOUNTER 2025-06-29 10:47 | Outpatient (REF) | payer OTHER, SELFPAY ==
--- NOTE | ~2025-06-29 | US_ITS ---
EXAMINATION: MM DIAGNOSTIC DIGITAL BREAST TOMOSYNTHESIS, BILATERAL CLINICAL INFORMATION: Left breast palpable lump felt for one month. Patient is currently nursing a-year-old son. Patient has a family history of breast cancer including maternal aunt with premenopausal breast cancer. COMPARISON: Mammography: Comparison is made with relevant prior exams. TECHNIQUE: Digital breast mammography with tomosynthesis is performed in both the craniocaudal and mediolateral oblique views along with computer-aided detection (CAD). FINDINGS: The breasts are heterogeneously dense, which may obscure small masses (ACR BI-RADS breast composition Category c). Right: No suspicious masses calcifications or other abnormal findings. Left: There is a ill-defined focal asymmetry in the central to slightly upper outer breast posterior depth with associated questioned architectural distortion. There is an ill-defined focal asymmetry in the lower central breast with associated architectural distortion distortion best seen on CC view middle to posterior depth. There are questionable faint calcifications best seen and masoud synthesis images in both above areas of focal asymmetry with distortion. No other abnormal findings. Targeted color Doppler ultrasound scanning in the left breast areas of patient's palpable lumps from 3 6:00 demonstrate dense breast tissue with an ill-defined hypoechoic irregular area which could represent a mass versus dense breast tissue versus engorged ducts due to patient's at 3:00 to 4:00 6 cm from the nipple measuring approximately 20 x 13 mm x 6 mm Targeted color Doppler ultrasound in the lower central breast at 6:00 6 mm demonstrates multiple hypoechoic irregular ill-defined areas of shadowing which could represent dense breast tissue versus solid irregular mass at 6:00 6 cm from nipple measuring approximately 23 x 13 mm x 15 mm. These areas are ill-defined and difficult to assess due to patient's dense breast tissue and nursing. Results are discussed with the patient at time of visit. US/US breast LT limited mamm only IMPRESSION: Right: Negative. Left: 1.Two areas of ill-defined focal asymmetries upper outer breast middle and posterior depth and central lower breast middle to posterior depth with associated architectural distortion there are question 2 ill-defined hypoechoic irregular areas on ultrasound. 2. Recommend breast MRI at this time to evaluate the left breast and plan biopsy approach of these 2 areas stereotactic versus ultrasound-guided core needle biopsy. Recommend ultrasound guided versus stereotactic core needle biopsy of both areas to be booked after MRI evaluation. The findings and recommendations were discussed with the patient who agrees with the plan and the procedures will be scheduled. MRI breast needs to be ordered by the patient's providing clinician. ASSESSMENT: BI-RADS BI-RADS 4 - Suspicious finding RECOMMENDATION: Biopsy recommended Additional imaging including breast MRI recommended at this time for further biopsy planning. Electronically signed by: Camryn Figueroa DO 06/29/2025 02:30 PM EDT
--- OUTSIDE RECORDS SUMMARY | 2025-06-29 11:28 | XMS_ITS | Encounter Summary ---
Author Organization [employer] Address [address] [place] [address] Care Team Providers Care Refueling Ramp Supervisor Name Role Phone Harris Hanks MD Primary Care Prov ider Encounter Details Date Type Department Care Team (Late st Contact Info) Description 12/27/2024 Orders Only [facility] [address] [place] [address] Provider, MD Gin Social History Tobacco Use [...] PM EST documented as of this encounter Functional Status * Over the past 2 weeks, how often have you been bothered by any of the following problems? Question Answer Date of Assessment Author Patient Health Questionnaire -2 Score 0 12/28/2024 11:24 AM Garrick Sherwood [place] * Little interest or pleasure in doing things Answer Date of Assessment Author Not at all 12/28/2024 11:24 AM Garrick Sherwood [place] * Feeling down, depressed, or hopeless Answer Date of Assessment Author Not at all 12/28/2024 11:24 AM Garrick Sherwood [place] * Trouble falling or staying asleep, or sleeping too much Answer Date of Assessment Author Several days 12/28/2024 11:24 AM Garrick Sherwodo MA * Feeling tired or having little energy Answer Date of Assessment Author Several days 12/28/2024 11:24 AM Garrick Sherwood [place] * Poor appetite or overeating Answer Date of Assessment Author Several days 12/28/2024 11:24 AM Garrick Sherwood [place] * Feeling bad about yourself - or that you are a failure or have let yourself or your family down Answer Date of Assessment Author Not at all 12/28/2024 11:24 AM Garrick Sherwood MA * Trouble concentrating on things, such as reading the newspaper or watching television Answer Date of Assessment Author Several days 12/28/2024 11:24 AM Garrick Sherwood [place] * Moving or speaking so slowly that other people could have noticed? Or the opposite - being so fidgety or restless that you have been moving around a lot more than usual. Answer Date of Assessment Author Not at all 12/28/2024 11:24 AM Garrick Sherwood MA * Thoughts that you would be better off or hurting yourself in some way Answer Date of Assessment Author Not at all 12/28/2024 11:24 AM Garrick Sherwood MA * Patient Health Questionnaire-9 Score Answer Date of Assessment Author 4 12/28/2024 11:24 AM Garrick Sherwood [place] * How difficult have these problems made it for you to do your work, take care of things at home, or get along with other people? Answer Date of Assessment Author Somewhat difficult 12/28/2024 11:24 AM Garrick Vazquez MA documented as of this encounter Plan of Treatment Upcoming Encounters Date Type Department Care Team ([facility] st Contact Info) Description 08/30/2025 8:30 AM EDT Telemedicine [facility] [address] [place] [address] Harris Hanks MD [address] [place] [address] documented as of this encounter Procedures Procedure Name Priority Date/Time Associated Diagnosis Comments HM PAP/HPV Routine 04/09/2022 7:50 AM EDT documented in this encounter Results * HM PAP/HPV (04/09/2022 7:50 AM EDT) Historical Provider HEALTH MAINTENANCE Final Result documented in this encounter Visit Diagnoses Not on filedocumented in this encounter Care Teams Refueling Ramp Supervisor Relationship Specialty Start Date End Date Harris Hanks MD [address] [place] [address] PCP - General Internal Medicine 11/10/24 documented as of this encounter
== END 2025-06-29 10:48 | disposition home or self-care (01) ==
LOC: HO.MAMMO 10:47
PROVIDERS: PCP Internal Medicine; Visit Provider Internal Medicine
DX: N63.25 Unspecified lump in the left breast, overlapping quadrants (principal)
CPT/HCPCS: 76642; 77062; 77066

== ENCOUNTER → 2025-06-29 11:00 | Outpatient (BNV) | payer OTHER, SELFPAY | PROVIDERS: PCP Internal Medicine; Visit Provider Internal Medicine | DX: R92.8 Other abnormal and inconclusive findings on diagnostic imaging of breast (principal) | CPT/HCPCS: 76642; 77062; 77066 ==

== ENCOUNTER 2025-07-06 14:47 | Outpatient (REF) | payer OTHER, SELFPAY ==
--- NOTE | ~2025-07-06 | MR_ITS ---
EXAMINATION: MR BREAST WITHOUT AND WITH CONTRAST, BILATERAL CLINICAL INFORMATION: Left breast palpable lump felt for one month. Patient is currently nursing a 3-year-old son. Patient has examination of breast cancer including maternal with premenopausal breast cancer. Patient had recent mammography and ultrasound with subtle irregular areas on both mammogram and ultrasound. COMPARISON: Comparison is made with relevant prior imaging. Mammogram and ultrasound June 29, 2025. TECHNIQUE: MR imaging of the breast was performed using T1, T2 and fat saturated techniques. Dynamic multiphase imaging was also performed after the administration of intravenous gadolinium contrast agent. Computer generated 3D reconstruction and enhancement kinetic analysis was ulitized by the radiologist in the interpretation of this examination. FINDINGS: Breast composition: Heterogeneous fibroglandular breast tissue Background parenchymal enhancement: Marked LEFT BREAST: There is extensive irregular enhancing masses and areas of nonmass enhancement in the lower central lower outer breast extending from approximately 2.7 to 12.5 cm behind the nipple series 1044 images 82 through 60/116. This area measures approximately 92 mm anterior to posterior by 37 mm transverse by 33 mm superior to inferior. There is a fat plane between the enhancing irregular mass and the chest wall. No internal mammary adenopathy. Question prominent versus normal axillary lymph nodes. Recommend axillary ultrasound evaluation at this time. RIGHT BREAST: No suspicious enhancing masses or areas of non mass enhancement. No axillary or internal mammary adenopathy. No internal mammary adenopathy. Question prominent right axillary lymph node. Recommend ultrasound at this time for confirmation. Limited views of the chest and abdomen are unremarkable. MR/MR breast BI wo/w con IMPRESSION: Left: 1. Extensive solid irregular mass involving the inferior and lower outer quadrant central outer left breast measuring up to 92 mm anterior to posterior correlating with patients palpable lumps. Recommend ultrasound-guided core needle biopsies of at least 2 sites for confirmation and to assess extent. 2. Question axillary lymph nodes. Recommend ultrasound evaluation at this time for confirmation. Right: No MRI evidence of malignancy. Question prominent axillary lymph node. Recommend ultrasound evaluation at this time for confirmation. ASSESSMENT: LEFT BREAST: BI-RADS 4-Suspicious RIGHT BREAST: BI-RADS 1-Negative RECOMMENDATIONS: 1. Recommend ultrasound-guided core needle biopsy of the left breast at this time and at least 2 locations to assess extent of suspicious enhancing irregular masses. The biopsies and bilateral axillary ultrasound have been scheduled. 2. Recommend bilateral axillary ultrasound for further evaluation of bilateral axillary lymph nodes. 3. Patient is under the care of a breast surgeon for excision and further management. Above results and recommendations discussed with patients breast surgeon Dr. Zheng. Electronically signed by: Camryn Figueroa DO 07/10/2025 09:16 AM EDT
--- OUTSIDE RECORDS SUMMARY | 2025-07-06 15:29 | XMS_ITS | Encounter Summary ---
Author Organization [employer] Address [address] [place] [address] Care Team Providers Care Security And Privacy Consultant Name Role Phone Harris Hanks MD Primary Care Prov ider Encounter Details Date Type Department Care Team (Late st Contact Info) Description 12/27/2024 Orders Only [facility] MEDICINE [address] [place] [address] Provider, MD Gin Social History Tobacco Use [...] 11:24 AM Garrick Sherwood MA * Feeling tired or having little [...] Upcoming Encounters Date Type Department Care Team ([facility] st Contact Info) Description 08/30/2025 8:30 AM EDT Telemedicine [facility] MED & PEDS [address] [place] [address] Harris Hanks MD [address] [place] [address] documented as of this encounter Procedures Procedure Name Priority Date/Time Associated Diagnosis Comments HM PAP/HPV Routine 04/09/2022 7:50 AM EDT documented in this encounter Results * HM PAP/HPV (04/09/2022 7:50 AM EDT) Historical Provider HEALTH MAINTENANCE Final Result documented in this encounter Visit Diagnoses Not on filedocumented in this encounter Care Teams Security And Privacy Consultant Relationship Specialty Start Date End Date Harris Hanks MD [address] [place] [address] PCP - General Internal Medicine 11/10/24 documented as of this encounter
== END 2025-07-06 14:48 | disposition home or self-care (01) ==
LOC: HO.MRI 14:47
PROVIDERS: PCP Internal Medicine; Visit Provider Internal Medicine
DX: N63.23 Unspecified lump in the left breast, lower outer quadrant (principal)
CPT/HCPCS: 77049; A9585

== ENCOUNTER → 2025-07-06 15:03 | Outpatient (BNV) | payer OTHER, SELFPAY | PROVIDERS: PCP Internal Medicine; Visit Provider Internal Medicine | DX: N63.23 Unspecified lump in the left breast, lower outer quadrant (principal) | CPT/HCPCS: 77049 ==

== ENCOUNTER 2025-07-07 08:19 | Outpatient (AMB) | payer OTHER, SELFPAY ==
--- NOTE | 2025-07-07 08:22 | MHC.OFFVIS ---
Vital Signs 07/07/25 08:34 Height 5 ft 5 in Weight 178 lb BMI 29.6 BP 120/60 Blood Pressure Location Lt brachial Position Sitting Respiration 18 Pulse 76 Intake Visit Reasons: us guided stero bx (L) breast 2 areas asymmetry Intake Note: Patient is seen in office for ultrasound guided stereo biopsy CONSULT left breast 2 areas asymmetry. Pt c/o: felt lump, had US, mammo and MRI - pt currently breast feeding Allergies TUNA FISH Allergy (Unknown, Uncoded 08/09/20 18:36) SWELLING Medication List - Last Reconciled 07/07/25 by Puneet Jovel RN No Known Home Meds HPI Comments Details: 29-year-old female patient presenting with complaints of a palpable mass in the left breast 1st noted approximately 1 month ago. She reports approximately three-month history of shooting pain in the left breast she attributed to breast-feeding her 2-year-old child. She denied any redness in the overlying skin. She feels the lump has increased in size over the past month. She denies a previous history of breast problems or breast surgery. Her family history is significant for a maternal aunt with breast cancer before her 40th birthday. She required chemotherapy and surgery. There was no other family history of breast cancer or ovarian cancer. She is unaware of any other family members undergoing genetic testing. She underwent evaluation with mammography and ultrasound on 06/29/2025. This revealed a left breast ill-defined focal asymmetry in the lower central breast with the associated architectural distortion as well as an ill-defined focal asymmetry in the central to slightly upper outer left breast, posterior depth with the associated questioned architectural distortion. Faint calcifications are also identified. This was later confirmed on ultrasound with color Doppler in the 6 and 3 o'clock position. She underwent MRI yesterday which confirms an enhancing lesion measuring approximately 9 cm anterior to posterior involving the whole inferior and lower outer quadrants but with no chest wall involvement. Findings were considered high suspicion for malignancy an ultrasound-guided core biopsies recommended. [facility] Family History (Updated 07/07/25 @ 08:29 by Puneet Jovel RN) Maternal Aunt Breast cancer, Onset Age: 40 Mother Cystic breast Female Reproductive History Menstrual Age of Menarche: 13 Date of last menstrual period: 07/06/25 Total pregnancies: 5 Full term: 2 Ab spontaneous: 3 Other: 1st preg age 18 Review of Systems Const All systems reviewed & are unremarkable except as noted in HPI and below Physical Exam Vital Signs: Last Vital Signs Pulse 76 07/07/25 08:34 Resp 18 07/07/25 08:34 BP 120/60 07/07/25 08:34 BMI result Body Mass Index 29.6 Const General: cooperative and no acute distress Nutritional Appearance: well nourished Orientation/consciousness: patient oriented x3 Limitations: no limitations HEENT Head: Yes normocephalic and Yes atraumatic Ears: hearing grossly normal bilaterally Chest Other: Left breast: No skin change, no nipple retraction, no nipple discharge, no enlarged lymph nodes. Palpable mass noted in the lower portion from 6-3 o'clock measuring at least 5-6 cm. No overlying skin changes/dimpling appreciated. Nontender to palpation Right breast: No skin change, no nipple retraction, no nipple discharge, no palpable mass, no enlarged lymph nodes Chest/axillae images:  1. Area of palpable density left breast lower outer quadrant Resp Effort & Inspection: normal respiratory effort, no audible wheezes, no cough and no respiratory distress Cardio Jugular venous distension: no JVD GI Inspection: Yes normal to inspection Skin Other: Warm, dry, no rash Neuro General: patient oriented x3 Extrem General: Yes no clubbing, cyanosis or edema Assessment & Plan Assessment & Plan (1) Abnormal mammogram of left breast: Code(s): R92.8 - Other abnormal and inconclusive findings on diagnostic imaging of breast Category: Medical (2) Left breast mass: Code(s): N63.20 - Unspecified lump in the left breast, unspecified quadrant Category: Medical Qualifiers: Breast mass location: lower outer quadrant Qualified Code(s): N63.23 - Unspecified lump in the left breast, lower outer quadrant (3) Abnormal ultrasound of breast: Code(s): R92.8 - Other abnormal and inconclusive findings on diagnostic imaging of breast Category: Medical Plan 29-year-old female patient with a positive family history for breast cancer presenting with a new palpable mass located in the lower outer quadrant of the left breast 1st noted approximately 1 month ago. Examination confirmed a palpable mass measuring approximately 5-6 cm at least with no overlying skin change and no fixation to chest wall. Mammogram, ultrasound, and MRI firm a suspicious density in this location for which ultrasound-guided core biopsy is recommended (BI-RADS 4). We discussed genetic testing which she will consider following the biopsy. The case was discussed with Dr. Figueroa this morning who also requested obtaining bilateral axillary ultrasounds as well. This was discussed with the patient and she expressed understanding and agrees with the plan. She will follow-up approximately 1 week following the biopsy. Orders: Orders US breast LT limited Today N63.20 - Unspecified lump in the left breast, unspecified quadrant, R92.8 - Other abnormal and inconclusive findings on diagnostic imaging of breast US breast RT limited Today N63.20 - Unspecified lump in the left breast, unspecified quadrant, R92.8 - Other abnormal and inconclusive findings on diagnostic imaging of breast US breast ndl core biopsy LT Today N63.20 - Unspecified lump in the left breast, unspecified quadrant, R92.8 - Other abnormal and inconclusive findings on diagnostic imaging of breast US breast ndl core bio ea add Today N63.20 - Unspecified lump in the left breast, unspecified quadrant, R92.8 - Other abnormal and inconclusive findings on diagnostic imaging of breast Coding Level of Care Code New Pt Level 4 (11862) Diagnoses Abnormal mammogram of left breast R92.8 Mass of lower outer quadrant of left breast N63.23 Breast mass location: lower outer quadrant Abnormal ultrasound of breast R92.8
--- OUTSIDE RECORDS SUMMARY | 2025-07-07 08:22 | XMS_ITS | Encounter Summary ---
Author Organization [employer] Address [address] [place] [address] Care Team Providers Care Commodity Supervisor Name Role Phone Harris Hanks MD Primary Care Prov ider Encounter Details Date Type Department Care Team (Late st Contact Info) Description 12/27/2024 Orders Only [facility] MEDICINE [address] [place] [address] Provider, MD Gin Social History Tobacco Use [...] Upcoming Encounters Date Type Department Care Team ([facility] st Contact Info) Description 08/30/2025 8:30 AM EDT Telemedicine [facility] MED & PEDS [address] [place] [address] Harris Hanks MD [address] [place] [address] documented as of this encounter Procedures Procedure Name Priority Date/Time Associated Diagnosis Comments HM PAP/HPV Routine 04/09/2022 7:50 AM EDT documented in this encounter Results * HM PAP/HPV (04/09/2022 7:50 AM EDT) Historical Provider HEALTH MAINTENANCE Final Result documented in this encounter Visit Diagnoses Not on filedocumented in this encounter Care Teams Commodity Supervisor Relationship Specialty Start Date End Date Harris Hanks MD [address] [place] [address] PCP - General Internal Medicine 11/10/24 documented as of this encounter
[2025-07-07 08:34] VITALS: BP 120/60; PULSE 76; RESP 18; BMI 29.6
== END 2025-07-07 09:01 | disposition home or self-care (01) ==
LOC: HO.HGS 08:19
PROVIDERS: PCP Internal Medicine; Visit Provider Surgery
DX: R92.8 Other abnormal and inconclusive findings on diagnostic imaging of breast (principal); N63.23 Unspecified lump in the left breast, lower outer quadrant
CPT/HCPCS: 99204

== ENCOUNTER → 2025-07-07 08:19 | Outpatient (BNVA) | payer OTHER, SELFPAY | PROVIDERS: PCP Internal Medicine; Visit Provider Surgery | DX: N63.23 Unspecified lump in the left breast, lower outer quadrant (principal); R92.8 Other abnormal and inconclusive findings on diagnostic imaging of breast | CPT/HCPCS: 99202 ==

== ENCOUNTER 2025-07-19 14:20 | Outpatient (REF) | payer OTHER, SELFPAY ==
--- NOTE | ~2025-07-19 | MM_ITS ---
PROCEDURE: ULTRASOUND-GUIDED LEFT BREAST BIOPSY CLINICAL INFORMATION: Palpable left breast lump and suspicious findings on ultrasound and mammogram and MRI. COMPARISON: Priors on PACS. TECHNIQUE: The details of the procedure, as well as the risks, benefits, and alternatives to the procedure were explained to the patient in detail and all of her questions were answered, after which, written informed consent was obtained. PROCEDURE: Preprocedural ultrasound in the bilateral axillas demonstrated normal axillary tissue and normal axillary lymph nodes. Prior to the procedure, sonography revealed ill-defined solid irregular masses in the lower central breast and lower outer quadrant central outer breast.. A time-out was performed, the lesion intended for biopsy was targeted and the skin of the left breast was then prepped and draped in the usual sterile fashion. Site 1 3:00 left breast. Using sonographic guidance, sterile technique, and 1% lidocaine without epinephrine for local anesthesia, a total of 4 cores were obtained through the targeted area with a 14-gauge biopsy device. At the completion of tissue sampling, a single butterfly metallic clip was deposited at the biopsy site. Site 2 5:00 left breast. Using sonographic guidance, sterile technique, and 1% lidocaine without epinephrine for local anesthesia, a total of 6 cores were obtained through the targeted area with a 14-gauge biopsy device. At the completion of tissue sampling, a single open coil metallic clip was deposited at the biopsy site. An appropriate sample was obtained. The postprocedure 2-view direct digital mammogram reveals satisfactory positioning of the biopsy clips. The patient tolerated the procedure well and, after assuring adequate hemostasis, was discharged in good condition after reviewing postbiopsy breast care instructions. Final pathology results are pending. MM/MM tomosynthesis diagnostic LT IMPRESSION: 1. Uncomplicated sonographically-guided core biopsy of the left breast at 2 sites 3:00 and 5:00. The 2-view direct digital postprocedure mammogram reveals satisfactory positioning of the biopsy clips. 2. Final pathology results are pending. A separate report with final recommendations will be issued once these results are made available. Electronically signed by: Camryn Figueroa DO 07/20/2025 12:38 PM EDT
--- OUTSIDE RECORDS SUMMARY | 2025-07-19 15:21 | XMS_ITS | Encounter Summary ---
Author Organization [employer] Address [address] [place] [address] Care Team Providers Care Varnish Inspector Name Role Phone Harris Hanks MD Primary Care Prov ider Encounter Details Date Type Department Care Team (Late st Contact Info) Description 12/27/2024 Orders Only [facility] MEDICINE [address] [place] [address] Provider, MD Gin Social History Tobacco Use [...] Upcoming Encounters Date Type Department Care Team ([facility] st Contact Info) Description 08/30/2025 8:30 AM EDT Telemedicine [facility] MED & PEDS [address] [place] [address] Harris Hanks MD [address] [place] [address] documented as of this encounter Procedures Procedure Name Priority Date/Time Associated Diagnosis Comments HM PAP/HPV Routine 04/09/2022 7:50 AM EDT documented in this encounter Results * HM PAP/HPV (04/09/2022 7:50 AM EDT) Historical Provider HEALTH MAINTENANCE Final Result documented in this encounter Visit Diagnoses Not on filedocumented in this encounter Care Teams Varnish Inspector Relationship Specialty Start Date End Date Harris Hanks MD [address] [place] [address] PCP - General Internal Medicine 11/10/24 documented as of this encounter
--- OUTSIDE RECORDS SUMMARY | 2025-07-19 15:22 | XMS_ITS | Encounter Summary ---
Author Organization [employer] Address [address] [place] [address] Care Team Providers Care Couture Dressmaker Name Role Phone Harris Hanks MD Primary Care Prov ider Encounter Details Date Type Department Care Team ([facility] st Contact Info) Description 01/06/2025 Orders Only [facility] MED & PEDS [address] [place], [place] [id number] Harris Hanks MD [address] [place], [place] [id number] Social History Tobacco Use Types Packs/Day Years [...] Care Team (Late st Contact Info) Description 08/30/2025 8:30 AM EDT Telemedicine [facility] MED & PEDS [address] [place] [address] Harris Hanks MD [address] [place] [address] documented as of this encounter Visit Diagnoses Not on filedocumented in this encounter Additional Health Concerns Assessment Noted Time PHQ-9 Depression Total Score: 4 12/28/19 25 11:24 AM EST documented as of this encounter Care Teams Couture Dressmaker Relationship Specialty Start Date End Date Harris Hanks MD [address] [place] [address] PCP - General Internal Medicine 11/10/24 documented as of this encounter
--- OUTSIDE RECORDS SUMMARY | 2025-07-19 15:22 | XMS_ITS | Encounter Summary ---
Author Organization [employer] Address [address] [place] [address] Care Team Providers Care Administrative Appeals Tribunal Member Name Role Phone Harris Hanks MD Primary Care Prov ider Encounter Details Date Type Department Care Team (Late st Contact Info) Description 12/28/2024 Orders Only [facility] MEDICINE [address] [place] [address] Harris Hanks MD [address] [place] [address] Social History Tobacco Use Types Packs/Day Years [...] is your housing situation today? I have yudypeyman deng 12/21/[address] you [...] [facility] [address] [place] [address] Harris Hanks MD [address] [place] [address] documented as of this encounter Visit Diagnoses Not on filedocumented in this encounter Additional Health Concerns Assessment Noted Time PHQ-9 Depression Total Score: 4 12/28/19 25 11:24 AM EST documented as of this encounter Care Teams Administrative Appeals Tribunal Member Relationship Specialty Start Date End Date Harris Hanks MD [address] [place] [address] PCP - General Internal Medicine 11/10/24 documented as of this encounter
--- OUTSIDE RECORDS SUMMARY | 2025-07-19 15:22 | XMS_ITS | Clinical Summary ---
Author Organization [employer] Address [address] [place] [address] Care Team Providers Care Japanese Interpreter Name Role Phone Harris Hanks MD Primary Care Prov ider Allergies Active Allergy Reactions Criticality Noted Date Comments Tuna Flavoring Agent (Non-Screening) 11/04/2023 Medications * This document contains information received from the source organization and may not represent a complete record from that organization. albuterol 108 (90 Base) MCG/ACT inhalerIndicatio ns:Acute exacerbation of asthma with allergic rhinitis Inhale 2 puffs every 4 (four) hours if needed for wheezing. 18 g 5 5 12/08/19 26 Active fluticasone (Flonase) 50 MCG/ACT nasal sprayIndications :Acute exacerbation of asthma with allergic rhinitis Administer 1 spray into each nostril if needed in the morning and at bedtime for rhinitis. Shake gently. Before first use, prime pump. After use, clean tip and replace cap. 16 g 1 5 12/08/19 26 Active Additional Information Patient not taking.Reported on 05/25/2025 Omeprazole 20 MG tablet delayed-release Take 1 tablet (20 mg) by mouth Once per day. 90 tablet 3 5 01/27/20 26 Active Additional Information Patient not taking.Reported on 05/25/2025 triamcinolone (Kenalog) 0.1 % creamIndications :Irritant contact dermatitis due to other agents Apply topically if needed in the morning and at bedtime for irritation. 15 g 2 5 Active hydrOXYzine HCl (Atarax) 25 MG tablet Take 1 tablet (25 mg) by mouth every 6 (six) hours if needed for anxiety. 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 Assessment & Plan (12/28/2024 12:05 PM EST): [...] Encounters Date Type Department Care Team Description 07/17/2025 Telephone [facility] [address] [place] [address] Harris Hanks MD 06/30/2025 Orders Only [facility] PED[facility] [address] [place] [address] Harris Hanks MD Mass of lower outer quadrant of left breast (Primary Dx) 06/29/2025 Orders Only [facility] [address] [place] [address] Harris Hanks MD Mass of lower outer quadrant of left breast (Primary Dx) 06/09/2025 Telephone [facility] [address] [place] [address] Harris Hanks MD US BREAST APPT 06/07/2025 2:20 PM EDT Office Visit [facility] [address] [place] [address] Harris Hanks MD Mass of lower outer quadrant of left breast (Primary Dx) 06/07/2025 Travel 06/06/2025 Telephone [facility] [address] [place] [address] Harris Hanks MD 05/30/2025 8:30 AM EDT Office Visit [facility] [address] [place] [address] Harris Hanks MD Severe anxiety (Primary Dx) 05/30/2025 Travel 05/25/2025 2:00 PM EDT Office Visit [facility] ADULT DENTAL [address] [place] [address] Yazmin Espinosa 05/08/2025 9:20 AM EDT Office Visit [facility] [address] [place] [address] Dayo Truong MD Irritant contact dermatitis due to other agents (Primary Dx) 05/08/2025 Travel from Last 3 Months Immunizations Immunization Administration Dates Next Due Moderna Covid-19 Vaccine [...] Answer Date Recorded Patient Health Questionnaire-9 Score 20 02/23/2025 Patient Health Questionnaire-9 Score 20 02/23/2025 Last PHQ-9: Questionnaire Data Not on file 0 02/23/2025 Housing Stability Answer Date Recorded What is [...] Answer Date Recorded Patient Health Questionnaire-2 Score 4 02/23/2025 Internet Access Answer Date Recorded Internet Access [...] Sign Reading Time Taken Comments Blood Pressure 142/93 06/07/2025 2:27 PM EDT Pulse 88 06/07/2025 2:27 PM EDT Temperature 36.7 C (98.1 F) 06/07/2025 2:27 PM EDT Respiratory Rate 20 06/07/2025 2:27 PM EDT Oxygen Saturation 99% 05/30/2025 8:54 AM EDT Inhaled Oxygen Concentration - - Weight 84.4 kg (186 lb) 06/07/2025 2:27 PM EDT Height 165.1 cm (5' 5 ) 06/07/2025 2:27 PM EDT Body Mass Index 30.95 06/07/2025 2:27 PM EDT Plan of Treatment Upcoming Encounters Date Type Department Care Team ([facility] st Contact Info) Description 08/30/2025 8:30 AM EDT Telemedicine [facility] [address] [place] [address] Harris Hanks MD [address] [place], [place] [id number] Health Maintenance Due Date Last Done Comments HIV Screening 1997 Lipid Panel 1997 Disability Screening 1997 Family Planning (PISQ) 2012 Hepatitis C Screening 2015 Pneumococcal Vaccine: Pediatrics (0 to 5 Years) and At-Risk Patients (6 to 49) Years (1 of 2 - PCV) 2016 COVID-19 Vaccine ( season) 2024 01/14/2023, 12/12/2022 HPV/Cotest 04/09/2025 Pap Smear 04/09/2025 04/09/2022 Dental Oral Exam 04/12/2025 10/12/2024 Influenza Vaccine (#1) 2025 6, 08/17/2012, 10/31/2003 Diagnostic Breast Imaging 08/06/20252024, 06/29/2025, 06/29/2025 Depression Monitoring 08/25/2025 02/23/2025, 025 Dental Prophylaxis 11/26/2025 05/25/2025, 0 02/22/2025, 10/12/2024, Additional history exists Dental X-Ray: Bitewings 12/14/2025 12/13/19, 10/12/2024, 01/22/2024 SDOH Screening 12/21/2025 12/21/2024 Alcohol/Substance Use Screening 12/28/2025 12/28/2024 Tobacco Screening 05/25/2026 05/25/2025 Dental X-Ray: Full Mouth 01/22/2027 01/22/2024, 09/23 Mammogram 07/06/2027 07/06/2025, 05/2025, 06/29/2025 DTaP/Tdap/Td Vaccines (9 - Td or Tdap) [...] on patient's age to complete this topic Meningococcal B Vaccine Aged Out No l onger eligible based on patient's age to complete this topic RSV under 20 months Aged Out No longe r eligible based on patient's age to complete this topic Rotavirus Vaccines Aged Out No longer eligible based on patient's age to complete this topic Procedures Procedure Name Priority Date/Time Associated Diagnosis Comments BI MR BREAST W AND WO CONTRAST BILATERAL Routine 07/06/2025 3:00 PM EDT Mass of lower outer quadrant of left breast BI MAMMOGRAM DIAGNOSTIC TOMOSYNTHESIS BILATERAL Routine 06/29/2025 11:30 AM EDT BI US BREAST LIMITED LEFT Routine 06/29/2025 11:12 AM EDT ORAL HYGIENE INSTRUCTIONS Routine 05/25/2025 2:00 PM EDT CASE PRESENTATION, DETAILED AND EXTENSIVE TREATMENT PLANNING Routine 05/25/2025 2:00 PM EDT PROPHYLAXIS - ADULT Routine 05/25/2025 2 :00 PM EDT BITEWING - SINGLE RADIOGRAPHIC IMAGE Routine 12/13/2024 2:30 PM EST Secondary dental caries associated with failed or defective dental episcopalian Dental caries PERIODIC ORAL EVALUATION - ESTABLISHED PATIENT Routine 10/12/2024 5:00 PM EST INTRAORAL - COMPLETE SERIES OF RADIOGRAPHIC IMAGES Routine 01/22/2024 11:00 AM EST HM PAP/HPV Routine 04/09/2022 7:50 AM EDT from Last 3 Months or Most Recently Relevant to Health Maintenance Results * BI MR Breast w and w/o Contrast Bilateral (07/06/2025 3:00 PM EDT) Anatomical Region Laterality Modality Breast Bilateral Magnetic Resonan ce 07/06/2025 3:00 PM EDT Narrative 07/10/2025 9:19 AM EDT [place] [address] Magnetic Resonance Report Signed Patient: Lori Mejia MR#: [id number] 384 : 1995 Acct:[id number] Age/Sex: 29 / F ADM Date: 07/06/25 Loc: .MRI Attending Dr: Harris Garcia MD Ordering Physician: Harris Hanks MD Date of Service: 07/06/25 Procedure(s): MR breast BI wo/w con Accession Number(s): [id number] cc: Harris Hanks MD EXAMINATION: MR BREAST WITHOUT AND WITH CONTRAST, BILATERAL CLINICAL INFORMATION: Left breast palpable lump felt for one month. Patient is currently nursing a 3-year-old son. Patient has examination of breast cancer including maternal with premenopausal breast cancer. Patient had recent mammography and ultrasound with subtle irregular areas on both mammogram and ultrasound. COMPARISON: Comparison is made with relevant prior imaging. Mammogram and ultrasound June 29, 2025. TECHNIQUE: MR imaging of the breast was performed using T1, T2 and fat saturated techniques. Dynamic multiphase imaging was also performed after the administration of intravenous gadolinium contrast agent. Computer generated 3D reconstruction and enhancement kinetic analysis was ulitized by the radiologist in the interpretation of this examination. FINDINGS: Breast composition: Heterogeneous fibroglandular breast tissue Background parenchymal enhancement: Marked LEFT BREAST: There is extensive irregular enhancing masses and areas of nonmass enhancement in the lower central lower outer breast extending from approximately 2.7 to 12.5 cm behind the nipple series 1044 images 82 through 60/116. This area measures approximately 92 mm anterior to posterior by 37 mm transverse by 33 mm superior to inferior. There is a fat plane between the enhancing irregular mass and the chest wall. No internal mammary adenopathy. Question prominent versus normal axillary lymph nodes. Recommend axillary ultrasound evaluation at this time. RIGHT BREAST: No suspicious enhancing masses or areas of non mass enhancement. No axillary or internal mammary adenopathy. No internal mammary adenopathy. Question prominent right axillary lymph node. Recommend ultrasound at this time for confirmation. Limited views of the chest and abdomen are unremarkable. MR/MR breast BI wo/w con IMPRESSION: Left: 1. Extensive solid irregular mass involving the inferior and lower outer quadrant central outer left breast measuring up to 92 mm anterior to posterior correlating with patients palpable lumps. Recommend ultrasound-guided core needle biopsies of at least 2 sites for confirmation and to assess extent. 2. Question axillary lymph nodes. Recommend ultrasound evaluation at this time for confirmation. Right: No MRI evidence of malignancy. Question prominent axillary lymph node. Recommend ultrasound evaluation at this time for confirmation. ASSESSMENT: LEFT BREAST: BI-RADS 4-Suspicious RIGHT BREAST: BI-RADS 1-Negative RECOMMENDATIONS: 1. Recommend ultrasound-guided core needle biopsy of the left breast at this time and at least 2 locations to assess extent of suspicious enhancing irregular masses. The biopsies and bilateral axillary ultrasound have been scheduled. 2. Recommend bilateral axillary ultrasound for further evaluation of bilateral axillary lymph nodes. 3. Patient is under the care of a breast surgeon for excision and further management. Above results and recommendations discussed with patients breast surgeon Dr. Zheng. Electronically signed by: Camryn Figueroa DO 07/10/2025 09:16 AM EDT Dictated By: Camryn Figueroa DO Signed By: <Electronically signed by Camryn Figueroa DO in OV> 07/10/25 0916 DD/ 1500 TD/TT: 07/06/25 1540 Chemical Checker: Procedure Note Donotuseinterpreter, Image - 07/10/2025 [place] [address] Magnetic Resonance Report Signed Patient: Lori Mejia JMR#: [id number] 384 : 1995Acct:[id number] Age/Sex: 29 / FADM Date: 07/06/25 Loc: HO.MRI Attending Dr: Harris Garcia MD Ordering Physician: Harris Hanks MD Date of Service: 07/06/25 Procedure(s): MR breast BI wo/w con Accession Number(s): [id number] cc: Harris Hanks MD EXAMINATION: MR BREAST WITHOUT AND WITH CONTRAST, BILATERAL CLINICAL INFORMATION: Left breast palpable lump felt for one month. Patient is currently nursing a 3-year-old son. Patient has examination of breast cancer including maternal with premenopausal breast cancer. Patient had recent mammography and ultrasound with subtle irregular areas on both mammogram and ultrasound. COMPARISON: Comparison is made with relevant prior imaging. Mammogram and ultrasound June 29, 2025. TECHNIQUE: MR imaging of the breast was performed using T1, T2 and fat saturated techniques. Dynamic multiphase imaging was also performed after the administration of intravenous gadolinium contrast agent. Computer generated 3D reconstruction and enhancement kinetic analysis was ulitized by the radiologist in the interpretation of this examination. FINDINGS: Breast composition: Heterogeneous fibroglandular breast tissue Background parenchymal enhancement: Marked LEFT BREAST: There is extensive irregular enhancing masses and areas of nonmass enhancement in the lower central lower outer breast extending from approximately 2.7 to 12.5 cm behind the nipple series 1044 images 82 through 60/116. This area measures approximately 92 mm anterior to posterior by 37 mm transverse by 33 mm superior to inferior. There is a fat plane between the enhancing irregular mass and the chest wall. No internal mammary adenopathy. Question prominent versus normal axillary lymph nodes. Recommend axillary ultrasound evaluation at this time. RIGHT BREAST: No suspicious enhancing masses or areas of non mass enhancement. No axillary or internal mammary adenopathy. No internal mammary adenopathy. Question prominent right axillary lymph node. Recommend ultrasound at this time for confirmation. Limited views of the chest and abdomen are unremarkable. MR/MR breast BI wo/w con IMPRESSION: Left: 1. Extensive solid irregular mass involving the inferior and lower outer quadrant central outer left breast measuring up to 92 mm anterior to posterior correlating with patients palpable lumps. Recommend ultrasound-guided core needle biopsies of at least 2 sites for confirmation and to assess extent. 2. Question axillary lymph nodes. Recommend ultrasound evaluation at this time for confirmation. Right: No MRI evidence of malignancy. Question prominent axillary lymph node. Recommend ultrasound evaluation at this time for confirmation. ASSESSMENT: LEFT BREAST: BI-RADS 4-Suspicious RIGHT BREAST: BI-RADS 1-Negative RECOMMENDATIONS: 1. Recommend ultrasound-guided core needle biopsy of the left breast at this time and at least 2 locations to assess extent of suspicious enhancing irregular masses. The biopsies and bilateral axillary ultrasound have been scheduled. 2. Recommend bilateral axillary ultrasound for further evaluation of bilateral axillary lymph nodes. 3. Patient is under the care of a breast surgeon for excision and further management. Above results and recommendations discussed with patients breast surgeon Dr. Zheng. Electronically signed by: Camryn Figueroa DO 07/10/2025 09:16 AM EDT Dictated By: Camryn Figueroa DO Signed By: <Electronically signed by Camryn Figueroa DO in OV> 07/10/25 0916 DD/ 1500 TD/TT: 07/06/25 1540 Chemical Checker: Harris Gracia MD IM MRI PROCEDURES Final Result * BI Mammogram Diagnostic Tomosynthesis Bilateral (06/29/2025 11:30 AM EDT) Anatomical Region Laterality Modality Breast Bilateral Mammography 06/29/2025 11:3 0 AM EDT Narrative 06/29/2025 2:33 PM EDT [facility] [address] [place], [place] [address] Mammography Report Signed Patient: Lori Mejia MR#: [id number] 384 : 1995 Acct:[id number] Age/Sex: 29 / F ADM Date: 06/29/25 Loc: HO.MAMMO Attending Dr: Harris Garcia MD Ordering Physician: Harris Hanks MD Res ults: 4Suspicious Finding Date of Service: 06/29/25 Follow Up: Biopsy Recommend ed Procedure(s): MM tomosynthesis diagnostic BI Accession Number(s): [id number] cc: Harris Hanks MD EXAMINATION: MM DIAGNOSTIC DIGITAL BREAST TOMOSYNTHESIS, BILATERAL CLINICAL INFORMATION: Left breast palpable lump felt for one month. Patient is currently nursing a-year-old son. Patient has a family history of breast cancer including maternal aunt with premenopausal breast cancer. COMPARISON: Mammography: Comparison is made with relevant prior exams. TECHNIQUE: Digital breast mammography with tomosynthesis is performed in both the craniocaudal and mediolateral oblique views along with computer-aided detection (CAD). FINDINGS: The breasts are heterogeneously dense, which may obscure small masses (ACR BI-RADS breast composition Category c). Right: No suspicious masses calcifications or other abnormal findings. Left: There is a ill-defined focal asymmetry in the central to slightly upper outer breast posterior depth with associated questioned architectural distortion. There is an ill-defined focal asymmetry in the lower central breast with associated architectural distortion distortion best seen on CC view middle to posterior depth. There are questionable faint calcifications best seen and masoud synthesis images in both above areas of focal asymmetry with distortion. No other abnormal findings. Targeted color Doppler ultrasound scanning in the left breast areas of patient's palpable lumps from 3 6:00 demonstrate dense breast tissue with an ill-defined hypoechoic irregular area which could represent a mass versus dense breast tissue versus engorged ducts due to patient's at 3:00 to 4:00 6 cm from the nipple measuring approximately 20 x 13 mm x 6 mm Targeted color Doppler ultrasound in the lower central breast at 6:00 6 mm demonstrates multiple hypoechoic irregular ill-defined areas of shadowing which could represent dense breast tissue versus solid irregular mass at 6:00 6 cm from nipple measuring approximately 23 x 13 mm x 15 mm. These areas are ill-defined and difficult to assess due to patient's dense breast tissue and nursing. Results are discussed with the patient at time of visit. MM/MM tomosynthesis diagnostic BI IMPRESSION: Right: Negative. Left: 1.Two areas of ill-defined focal asymmetries upper outer breast middle and posterior depth and central lower breast middle to posterior depth with associated architectural distortion there are question 2 ill-defined hypoechoic irregular areas on ultrasound. 2. Recommend breast MRI at this time to evaluate the left breast and plan biopsy approach of these 2 areas stereotactic versus ultrasound-guided core needle biopsy. Recommend ultrasound guided versus stereotactic core needle biopsy of both areas to be booked after MRI evaluation. The findings and recommendations were discussed with the patient who agrees with the plan and the procedures will be scheduled. MRI breast needs to be ordered by the patient's providing clinician. ASSESSMENT: BI-RADS BI-RADS 4 - Suspicious finding RECOMMENDATION: Biopsy recommended Additional imaging including breast MRI recommended at this time for further biopsy planning. Electronically signed by: Camryn Figueroa DO 06/29/2025 02:30 PM EDT RP Dictated By: Camryn Figueroa DO Signed By: <Electronically signed by Camryn Figueroa DO in OV> 06/29/25 1430 DD/ 1130 TD/TT: 06/29/25 1145 Chemical Checker: Procedure Note Donotuseinterpreter, Image - 06/29/2025 [facility] [address] [place] [address] Mammography Report Signed Patient: Lori Mejia R#: [id number] : 1995Acct:[id number] Age/Sex: 29 / FADM Date: 06/29/25 Loc: HO.MAMMO Attending Dr: Harris Garcia MD Ordering Physician: Harris Hanks ults: 4Suspicious Finding Date of Service: 06/29/25Follow Up: Biopsy Recommend ed Procedure(s): MM tomosynthesis diagnostic BI Accession Number(s): [id number] cc: Harris Hanks MD EXAMINATION: MM DIAGNOSTIC DIGITAL BREAST TOMOSYNTHESIS, BILATERAL CLINICAL INFORMATION: Left breast palpable lump felt for one month. Patient is currently nursing a-year-old son. Patient has a family history of breast cancer including maternal aunt with premenopausal breast cancer. COMPARISON: Mammography: Comparison is made with relevant prior exams. TECHNIQUE: Digital breast mammography with tomosynthesis is performed in both the craniocaudal and mediolateral oblique views along with computer-aided detection (CAD). FINDINGS: The breasts are heterogeneously dense, which may obscure small masses (ACR BI-RADS breast composition Category c). Right: No suspicious masses calcifications or other abnormal findings. Left: There is a ill-defined focal asymmetry in the central to slightly upper outer breast posterior depth with associated questioned architectural distortion. There is an ill-defined focal asymmetry in the lower central breast with associated architectural distortion distortion best seen on CC view middle to posterior depth. There are questionable faint calcifications best seen and masoud synthesis images in both above areas of focal asymmetry with distortion. No other abnormal findings. Targeted color Doppler ultrasound scanning in the left breast areas of patient's palpable lumps from 3 6:00 demonstrate dense breast tissue with an ill-defined hypoechoic irregular area which could represent a mass versus dense breast tissue versus engorged ducts due to patient's at 3:00 to 4:00 6 cm from the nipple measuring approximately 20 x 13 mm x 6 mm Targeted color Doppler ultrasound in the lower central breast at 6:00 6 mm demonstrates multiple hypoechoic irregular ill-defined areas of shadowing which could represent dense breast tissue versus solid irregular mass at 6:00 6 cm from nipple measuring approximately 23 x 13 mm x 15 mm. These areas are ill-defined and difficult to assess due to patient's dense breast tissue and nursing. Results are discussed with the patient at time of visit. MM/MM tomosynthesis diagnostic BI IMPRESSION: Right: Negative. Left: 1.Two areas of ill-defined focal asymmetries upper outer breast middle and posterior depth and central lower breast middle to posterior depth with associated architectural distortion there are question 2 ill-defined hypoechoic irregular areas on ultrasound. 2. Recommend breast MRI at this time to evaluate the left breast and plan biopsy approach of these 2 areas stereotactic versus ultrasound-guided core needle biopsy. Recommend ultrasound guided versus stereotactic core needle biopsy of both areas to be booked after MRI evaluation. The findings and recommendations were discussed with the patient who agrees with the plan and the procedures will be scheduled. MRI breast needs to be ordered by the patient's providing clinician. ASSESSMENT: BI-RADS BI-RADS 4 - Suspicious finding RECOMMENDATION: Biopsy recommended Additional imaging including breast MRI recommended at this time for further biopsy planning. Electronically signed by: Camryn Figueroa DO 06/29/2025 02:30 PM EDT Dictated By: Camryn Figueroa DO Signed By: <Electronically signed by Camryn Figueroa DO in OV> 06/29/25 1430 DD/ 1130 TD/TT: 06/29/25 1145 Chemical Checker: us Harris Garcia MD IMG BI PROCEDURES Final Result * BI US Breast Limited Left (06/29/2025 11:12 AM EDT) Anatomical Region Laterality Modality Breast Left Ultrasound 06/29/2025 11:1 2 AM EDT Narrative 06/29/2025 2:33 PM EDT [address] [place] [address] Ultrasound Report Signed Patient: Lori Mejia MR#: [id number] 384 : 1995 Acct:[id number] Age/Sex: 29 / F ADM Date: 06/29/25 Loc: HO.MAMMO Attending Dr: Harris Garcia MD Ordering Physician: Harris Hanks MD Date of Service: 06/29/25 Procedure(s): US breast LT limited mamm only Accession Number(s): [id number] cc: Harris Hanks MD EXAMINATION: MM DIAGNOSTIC DIGITAL BREAST TOMOSYNTHESIS, BILATERAL CLINICAL INFORMATION: Left breast palpable lump felt for one month. Patient is currently nursing a-year-old son. Patient has a family history of breast cancer including maternal aunt with premenopausal breast cancer. COMPARISON: Mammography: Comparison is made with relevant prior exams. TECHNIQUE: Digital breast mammography with tomosynthesis is performed in both the craniocaudal and mediolateral oblique views along with computer-aided detection (CAD). FINDINGS: The breasts are heterogeneously dense, which may obscure small masses (ACR BI-RADS breast composition Category c). Right: No suspicious masses calcifications or other abnormal findings. Left: There is a ill-defined focal asymmetry in the central to slightly upper outer breast posterior depth with associated questioned architectural distortion. There is an ill-defined focal asymmetry in the lower central breast with associated architectural distortion distortion best seen on CC view middle to posterior depth. There are questionable faint calcifications best seen and masoud synthesis images in both above areas of focal asymmetry with distortion. No other abnormal findings. Targeted color Doppler ultrasound scanning in the left breast areas of patient's palpable lumps from 3 6:00 demonstrate dense breast tissue with an ill-defined hypoechoic irregular area which could represent a mass versus dense breast tissue versus engorged ducts due to patient's at 3:00 to 4:00 6 cm from the nipple measuring approximately 20 x 13 mm x 6 mm Targeted color Doppler ultrasound in the lower central breast at 6:00 6 mm demonstrates multiple hypoechoic irregular ill-defined areas of shadowing which could represent dense breast tissue versus solid irregular mass at 6:00 6 cm from nipple measuring approximately 23 x 13 mm x 15 mm. These areas are ill-defined and difficult to assess due to patient's dense breast tissue and nursing. Results are discussed with the patient at time of visit. US/US breast LT limited mamm only IMPRESSION: Right: Negative. Left: 1.Two areas of ill-defined focal asymmetries upper outer breast middle and posterior depth and central lower breast middle to posterior depth with associated architectural distortion there are question 2 ill-defined hypoechoic irregular areas on ultrasound. 2. Recommend breast MRI at this time to evaluate the left breast and plan biopsy approach of these 2 areas stereotactic versus ultrasound-guided core needle biopsy. Recommend ultrasound guided versus stereotactic core needle biopsy of both areas to be booked after MRI evaluation. The findings and recommendations were discussed with the patient who agrees with the plan and the procedures will be scheduled. MRI breast needs to be ordered by the patient's providing clinician. ASSESSMENT: BI-RADS BI-RADS 4 - Suspicious finding RECOMMENDATION: Biopsy recommended Additional imaging including breast MRI recommended at this time for further biopsy planning. Electronically signed by: Camryn Figueroa DO 06/29/2025 02:30 PM EDT Dictated By: Camryn Figueroa DO Signed By: <Electronically signed by Camryn Figueroa DO in OV> 06/29/25 1430 DD/ 1112 TD/TT: 06/29/25 1130 Chemical Checker: Procedure Note Donotuseinterpreter, Image - 06/30/2025 Kareen [facility] [address] [place], [place] [address] Ultrasound Report Signed Patient: oLri Mejia JMR#: [id number] : 1995Acct:[id number] Age/Sex: 29 / FADM Date: 06/29/25 Loc: HO.MAMMO Attending Dr: Harris Garcia MD Ordering Physician: Harris Hanks MD Date of Service: 06/29/25 Procedure(s): US breast LT limited mamm only Accession Number(s): [id number] cc: Harris Hanks MD EXAMINATION: MM DIAGNOSTIC DIGITAL BREAST TOMOSYNTHESIS, BILATERAL CLINICAL INFORMATION: Left breast palpable lump felt for one month. Patient is currently nursing a-year-old son. Patient has a family history of breast cancer including maternal aunt with premenopausal breast cancer. COMPARISON: Mammography: Comparison is made with relevant prior exams. TECHNIQUE: Digital breast mammography with tomosynthesis is performed in both the craniocaudal and mediolateral oblique views along with computer-aided detection (CAD). FINDINGS: The breasts are heterogeneously dense, which may obscure small masses (ACR BI-RADS breast composition Category c). Right: No suspicious masses calcifications or other abnormal findings. Left: There is a ill-defined focal asymmetry in the central to slightly upper outer breast posterior depth with associated questioned architectural distortion. There is an ill-defined focal asymmetry in the lower central breast with associated architectural distortion distortion best seen on CC view middle to posterior depth. There are questionable faint calcifications best seen and masoud synthesis images in both above areas of focal asymmetry with distortion. No other abnormal findings. Targeted color Doppler ultrasound scanning in the left breast areas of patient's palpable lumps from 3 6:00 demonstrate dense breast tissue with an ill-defined hypoechoic irregular area which could represent a mass versus dense breast tissue versus engorged ducts due to patient's at 3:00 to 4:00 6 cm from the nipple measuring approximately 20 x 13 mm x 6 mm Targeted color Doppler ultrasound in the lower central breast at 6:00 6 mm demonstrates multiple hypoechoic irregular ill-defined areas of shadowing which could represent dense breast tissue versus solid irregular mass at 6:00 6 cm from nipple measuring approximately 23 x 13 mm x 15 mm. These areas are ill-defined and difficult to assess due to patient's dense breast tissue and nursing. Results are discussed with the patient at time of visit. US/US breast LT limited mamm only IMPRESSION: Right: Negative. Left: 1.Two areas of ill-defined focal asymmetries upper outer breast middle and posterior depth and central lower breast middle to posterior depth with associated architectural distortion there are question 2 ill-defined hypoechoic irregular areas on ultrasound. 2. Recommend breast MRI at this time to evaluate the left breast and plan biopsy approach of these 2 areas stereotactic versus ultrasound-guided core needle biopsy. Recommend ultrasound guided versus stereotactic core needle biopsy of both areas to be booked after MRI evaluation. The findings and recommendations were discussed with the patient who agrees with the plan and the procedures will be scheduled. MRI breast needs to be ordered by the patient's providing clinician. ASSESSMENT: BI-RADS BI-RADS 4 - Suspicious finding RECOMMENDATION: Biopsy recommended Additional imaging including breast MRI recommended at this time for further biopsy planning. Electronically signed by: Camryn Figueroa DO 06/29/2025 02:30 PM EDT Dictated By: Camryn Figueroa DO Signed By: <Electronically signed by Camryn Figueroa DO in OV> 06/29/25 1430 DD/ 1112 TD/TT: 06/29/25 1130 Chemical Checker: Harris Garcia MD IM US PROCEDURES Final Result * HM PAP/HPV (04/09/2022 7:50 AM EDT) Historical Provider HEALTH MAINTENANCE Final Result from Last 3 Months or Most Recently Relevant to Health Maintenance Insurance [facility] [address] [facility] , [address] [place] [address] DENTAL - HSN FULL (MEDICAID) Care Teams Japanese Interpreter Relationship Specialty Start Date End Date Harris Hanks MD [address] [place] [address] [phone] PCP - General Internal Medicine 11/10/24
--- OUTSIDE RECORDS SUMMARY | 2025-07-19 15:22 | XMS_ITS | Encounter Summary ---
Author Organization [employer] Address [address] [place] [address] Care Team Providers Care Package Line Relief Operator Name Role Phone Harris Hanks MD Primary Care Prov ider Encounter Details Date Type Department Care Team (Late st Contact Info) Description 07/17/2025 Telephone [facility] MEDICINE [address] [place] [address] Harris Hanks MD [address] [place] [address] Social History Tobacco Use Types Packs/Day Years [...] encounter Miscellaneous Notes * Telephone Encounter - Karena Medina LPN - 07/17/2025 2:31 PM EDT TC to pt to gather information necessary to complete FMLA. FMLA completed and submitted for PCP signing. documented in this encounter Plan of Treatment Upcoming Encounters Date Type Department Care Team (Late st Contact Info) Description 08/30/2025 8:30 AM EDT Telemedicine [facility] MED & PEDS [address] [place] [address] Harris Hanks MD [address] [place] [address] documented as of this encounter Visit Diagnoses Not on filedocumented in this encounter Additional Health Concerns Assessment Noted Time PHQ-9 Depression Total Score: 20 025 10:36 AM EDT documented as of this encounter Care Teams Package Line Relief Operator Relationship Specialty Start Date End Date Harris Hanks MD [address] [place] [address] PCP - General Internal Medicine 11/10/24 documented as of this encounter
[2025-07-19] MEDS: Lidocaine HCl 1 % 20 ML VIAL 18 ML SUBCUT (16:00)
== END 2025-07-19 14:21 | disposition home or self-care (01) ==
LOC: HO.MAMMO 14:20
PROVIDERS: Pathology Anatomic Pathology & Clinical Pathology; PCP Internal Medicine; Visit Provider Surgery
DX: R92.8 Other abnormal and inconclusive findings on diagnostic imaging of breast (principal); N63.20 Unspecified lump in the left breast, unspecified quadrant; Z12.31 Encounter for screening mammogram for malignant neoplasm of breast
CPT/HCPCS: 19083; 19084; 77061; 77065; 88305; 88341; 88342; 88360; 88374; A4648; J2003

== ENCOUNTER → 2025-07-19 14:23 | Outpatient (BNV) | payer OTHER, SELFPAY | PROVIDERS: PCP Internal Medicine; Visit Provider Internal Medicine | DX: N63.25 Unspecified lump in the left breast, overlapping quadrants (principal) | CPT/HCPCS: 19083; 19084; 77065 ==

== ENCOUNTER 2025-07-31 13:10 | Outpatient (AMB) | payer OTHER, SELFPAY ==
--- OUTSIDE RECORDS SUMMARY | 2025-07-27 15:45 | XMS_ITS | Encounter Summary ---
Author Organization [employer] Address [address] [facility] [address] [place] [address] Care Team Providers Care Piercing Machine Operator Name Role Phone Harris Hanks MD Primary Care Prov ider Encounter Details Date Type Department Care Team ([facility] st Contact Info) Description 07/27/2025 3:45 PM EDT Office Visit [facility] CHC MED & PEDS [address] [place], [place] [phone] Va Negron MD [address] [place] [address] Intraductal carcinoma of left breast (Primary Dx) Social History Tobacco Use Types [...] Sign Reading Time Taken Comments Blood Pressure 128/66 07/27/2025 3:44 PM EDT Pulse 78 07/27/2025 3:44 PM EDT Temperature 37.1 C (98.8 F) 07/27/2025 3:44 PM EDT Respiratory Rate 20 07/27/2025 3:44 PM EDT Oxygen Saturation - - Inhaled Oxygen Concentration - - Weight 84.4 kg (186 lb) 07/27/2025 3:44 PM EDT Height 164 cm (5' 4.57 ) 07/27/2025 3:44 PM EDT Body Mass Index 31.37 07/27/2025 3:44 PM EDT documented in this encounter Progress Notes * Va Negron MD - 07/27/2025 3:45 PM EDT Subjective Patient ID: Lori Mejia is a 29 y.o. female who presents for results of biopsy. Lori is a 29-year-old female patient of Dr. Schmitz here for biopsy of left breast lump results. Patient has family history of breast cancer in maternal aunt. Was seen by PCP recently due to left breast mass of unknown etiology. PCP referred her for ultrasound and diagnostic mammo which suggested need for biopsy. Biopsy revealed grade 1 intraductal carcinoma of left breast. ER/MD positive [id number] positive. Some other receptors are pending. Patient has kids youngest is almost 3 and was still nursing occasionally. Patient states has follow-up with surgeon at the [facility] on Thursday, July 31 for follow-up results. Patientis here with her for support. Patient had seen results in her MyChart but did not understand all findings. Review of Systems Constitutional: Negative for activity change, chills, fever and unexpected weight change. Respiratory: Negative for cough, shortness of breath and wheezing. Cardiovascular: Negative for chest pain, palpitations and leg swelling. Gastrointestinal: Negative for abdominal pain and blood in stool. Endocrine: Negative for polydipsia and polyuria. Genitourinary: Negative for decreased urine volume, difficulty urinating, dysuria and hematuria. Musculoskeletal: Negative for arthralgias and gait problem. Skin: Negative for color change and rash. Neurological: Negative for dizziness and headaches. Hematological: Negative for adenopathy. Psychiatric/Behavioral: Negative for dysphoric mood, hallucinations, sleep disturbance and suicidalideas. The patient is nervous/anxious. Objective BP 128/66 Pulse 78 Temp 98.8 ??F (37.1 ??C) (Oral) Resp 20 Ht 5' 4.57 (1.64 m) Wt 186 lb (84.4 kg) BMI 31.37 kg/m?? Physical Exam Vitals reviewed. Constitutional: Appearance: Normal appearance. Neurological: Mental Status: She is alert and oriented to person, place, and time. Mental status is at baseline. Psychiatric: Mood and Affect: Affect is tearful. Assessment/Plan Diagnoses and all orders for this visit: Intraductal carcinoma of left breast Comments: Patient received news calmly in presence of her . Will follow-up with surgeon on Julys scheduled. Advised patient to bring notebook and ask all questions that he may have. Patient will need further testing for staging for optimized treatment. Explained to patient she will be referred to oncology most likely on Thursday by surgeon. Patient applied for FMLA. Letter given to patient confirming recent diagnosis. Follow-up with PCP as scheduled. All questions answered. Patient seems tohave good support. Will inform PCP of this visit. documented in this encounter Plan of Treatment Upcoming Encounters Date Type Department Care Team (Late st Contact Info) Description 08/30/2025 8:30 AM EDT Telemedicine [facility] MED & PEDS [address] [place] [address] Harris Hanks MD [address] [place] [address] documented as of this encounter Visit Diagnoses Diagnosis Intraductal carcinoma of left breast- Primary documented in this encounter Additional Health Concerns Assessment Noted Time PHQ-9 Depression Total Score: 20 04/ 025 10:36 AM EDT documented as of this encounter Care Teams Piercing Machine Operator Relationship Specialty Start Date End Date Harris Hanks MD [address] [place] [address] PCP - General Internal Medicine 11/10/24 documented as of this encounter
--- NOTE | 2025-07-31 13:24 | MHC.OFFVIS ---
Vital Signs 07/31/25 13:33 Height 5 ft 5 in Weight 191 lb BMI 31.8 BP 127/57 L Blood Pressure Location Lt brachial Position Sitting Pulse 77 Intake Visit Reasons: s/p Mammo results Intake Note: Patient is seen in office for biopsy RESULTS, left breast 2 areas asymmetry. Pt c/o: denies any concerns, here for results Vaccine Customer Representative Required: No Accompanied by: Other Relationship Allergies TUNA FISH Allergy (Unknown, Uncoded 07/31/25 13:29) SWELLING Medication List - Last Reconciled 07/31/25 by Zach Zheng MD No Known Home Meds HPI Comments Details: 29-year-old female patient presenting with complaints of a palpable mass in the left breast 1st noted approximately 1 month ago. She reports approximately three-month history of shooting pain in the left breast she attributed to breast-feeding her 2-year-old child. She denied any redness in the overlying skin. She feels the lump has increased in size over the past month. She denies a previous history of breast problems or breast surgery. Her family history is significant for a maternal aunt with breast cancer before her 40th birthday. She required chemotherapy and surgery. There was no other family history of breast cancer or ovarian cancer. She is unaware of any other family members undergoing genetic testing. She underwent evaluation with mammography and ultrasound on 06/29/2025. This revealed a left breast ill-defined focal asymmetry in the lower central breast with the associated architectural distortion as well as an ill-defined focal asymmetry in the central to slightly upper outer left breast, posterior depth with the associated questioned architectural distortion. Faint calcifications are also identified. This was later confirmed on ultrasound with color Doppler in the 6 and 3 o'clock position. She underwent MRI yesterday which confirms an enhancing lesion measuring approximately 9 cm anterior to posterior involving the whole inferior and lower outer quadrants but with no chest wall involvement. She returns today after undergoing an ultrasound-guided core biopsy. 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 Lesion a is ER/AR positive HER2 Dusty negative with a low Ki-67, lesion be is ER/AR positive, HER2 Dusty equivocal, Ki-67 low. She returns today for wound check and review of the pathology results. [facility] Family History Maternal Aunt Breast cancer, Onset Age: 40 Mother Cystic breast Female Reproductive History Menstrual Age of Menarche: 13 Review of Systems Const All systems reviewed & are unremarkable except as noted in HPI and below Physical Exam Vital Signs: Last Vital Signs Pulse 77 07/31/25 13:33 BP 127/57 L 07/31/25 13:33 BMI result Body Mass Index 31.8 Const General: cooperative and no acute distress Nutritional Appearance: well nourished Orientation/consciousness: patient oriented x3 Limitations: no limitations HEENT Head: Yes normocephalic and Yes atraumatic Ears: hearing grossly normal bilaterally Chest Other: Left breast: No skin change, no nipple retraction, no nipple discharge, no enlarged lymph nodes. Palpable mass noted in the lower portion from 6-3 o'clock measuring at least 5-6 cm. No overlying skin changes/dimpling appreciated. Nontender to palpation Right breast: No skin change, no nipple retraction, no nipple discharge, no palpable mass, no enlarged lymph nodes Resp Effort & Inspection: normal respiratory effort, no audible wheezes, no cough and no respiratory distress Cardio Jugular venous distension: no JVD GI Inspection: Yes normal to inspection Skin Other: Warm, dry, no rash Neuro General: patient oriented x3 Extrem General: Yes no clubbing, cyanosis or edema Assessment & Plan Assessment & Plan (1) Invasive ductal carcinoma of left breast: Code(s): C50.912 - Malignant neoplasm of unspecified site of left female breast Category: Medical Plan 29-year-old female patient with a positive family history for breast cancer presenting with a new palpable mass located in the lower outer quadrant of the left breast 1st noted approximately 1 month ago. Examination confirmed a palpable mass measuring approximately 5-6 cm at least with no overlying skin change and no fixation to chest wall. Mammogram, ultrasound, and MRI firm a suspicious density in this location for which ultrasound-guided core biopsy is recommended (BI-RADS 4). Ultrasound-guided biopsy of 07/19/2025 reveals 2 foci of invasive ductal carcinoma. Pathology results were discussed in detail with the patient today. Because of the size of the lesion by MRI and on examination I recommended further evaluation by Hematology/Oncology to determine if she is a candidate for neoadjuvant chemotherapy. She expressed understanding and agrees with the plan. Orders: Referrals Hematology & Oncology Referral C50.912 - Malignant neoplasm of unspecified site of left female breast Coding Level of Care Code Est Pt Level 3 (25200) Diagnoses Invasive ductal carcinoma of left breast C50.912
[2025-07-31 13:33] VITALS: BP 127/57; PULSE 77; BMI 31.8
--- OUTSIDE RECORDS SUMMARY | 2025-07-31 15:33 | XMS_ITS | Encounter Summary ---
Author Organization [employer] Address [address] [facility] [address] [place] [address] Care Team Providers Care String Winding Machine Operator Name Role Phone Harris Hanks MD Primary Care Prov ider Encounter Details Date Type Department Care Team ([facility] st Contact Info) Description 01/06/2025 Orders Only [facility] MED & PEDS [address] [place], [place] [phone] Harris Hanks MD [address] [place] [address] Social History Tobacco Use Types Packs/Day Years [...] Info) Description 08/30/2025 8:30 AM EDT Telemedicine [facility] MED & PEDS [address] [place] [address] Harris Hanks MD [address] [place] [address] documented as of this encounter Visit Diagnoses Not on filedocumented in this encounter Additional Health Concerns Assessment Noted Time PHQ-9 Depression Total Score: 4 12/28/19 25 11:24 AM EST documented as of this encounter Care Teams String Winding Machine Operator Relationship Specialty Start Date End Date Harris Hanks MD [address] [place] [address] PCP - General Internal Medicine 11/10/24 documented as of this encounter
--- OUTSIDE RECORDS SUMMARY | 2025-07-31 15:33 | XMS_ITS | Encounter Summary ---
Author Organization [employer] Address [address] [facility] [address] [place] [address] Care Team Providers Care Electrolysis Engineer Name Role Phone Harris Hanks MD Primary Care Prov ider Reason for Visit * Reason Onset Date Comments Results 07/27/2025 Encounter Details Date Type Department Care Team ([facility] Contact Info) Description 07/27/2025 Telephone [facility] CHC MED & PEDS [address] [place], [place] [phone] Va Negron MD [address] [place] [address] Results Social History Tobacco Use Types Packs/Day Years [...] encounter Miscellaneous Notes * Telephone Encounter - Alyson Subramanian RN - 07/27/2025 11:53 AM EDT TC to pt. RN offered 3:[address] Negron to discuss breast bx results. Pt verbalized understanding and agreement with the plan of care. documented in this encounter Plan of Treatment Upcoming Encounters Date Type Department Care Team (Late st Contact Info) Description 08/30/2025 8:30 AM EDT Telemedicine [facility] MED & PEDS [address] [place] [address] Harris Hanks MD [address] [place] [address] documented as of this encounter Visit Diagnoses Not on filedocumented in this encounter Additional Health Concerns Assessment Noted Time PHQ-9 Depression Total Score: 20 025 10:36 AM EDT documented as of this encounter Care Teams Electrolysis Engineer Relationship Specialty Start Date End Date Harris Hanks MD [address] [place] [address] PCP - General Internal Medicine 11/10/24 documented as of this encounter
--- OUTSIDE RECORDS SUMMARY | 2025-07-31 15:33 | XMS_ITS | Encounter Summary ---
Author Organization [employer] Address [address] [place] [address] Care Team Providers Care Executive Compensation Analyst Name Role Phone Harris Hanks MD Primary Care Prov ider Encounter Details Date Type Department Care Team (Latest Contact Info) Description 07/27/2025 Travel Social History Tobacco Use Types Packs/Day [...] t he electric, gas, oil or water [employer] threatened to shut off services in your [...] Info) Description 08/30/2025 8:30 AM EDT Telemedicine [facility] [address] [place] [address] Harris Hanks MD [address] [place] [address] documented as of this encounter Visit Diagnoses Not on filedocumented in this encounter Additional Health Concerns Assessment Noted Time PHQ-9 Depression Total Score: 20 025 10:36 AM EDT documented as of this encounter Care Teams Executive Compensation Analyst Relationship Specialty Start Date End Date Harris Hanks MD [address] [place] [address] PCP - General Internal Medicine 11/10/24 documented as of this encounter
--- OUTSIDE RECORDS SUMMARY | 2025-07-31 15:33 | XMS_ITS | Encounter Summary ---
Author Organization [employer] Address [address] [place] [address] Care Team Providers Care Fur Vault Attendant Name Role Phone Harris Hanks MD Primary Care Prov ider Encounter Details Date Type Department Care Team (Late st Contact Info) Description 12/27/2024 Orders Only [facility] [address] [place] [address] Provider, MD Gin Social History Tobacco Use [...] Upcoming Encounters Date Type Department Care Team ([facility] st Contact Info) Description 08/30/2025 8:30 AM EDT Telemedicine [facility] [address] [place] [address] Harris Hanks MD [address] [place] [address] documented as of this encounter Procedures Procedure Name Priority Date/Time Associated Diagnosis Comments HM PAP/HPV Routine 04/09/2022 7:50 AM EDT documented in this encounter Results * HM PAP/HPV (04/09/2022 7:50 AM EDT) Historical Provider HEALTH MAINTENANCE Final Result documented in this encounter Visit Diagnoses Not on filedocumented in this encounter Care Teams Fur Vault Attendant Relationship Specialty Start Date End Date Harris Hanks MD [address] [place] [address] PCP - General Internal Medicine 11/10/24 documented as of this encounter
--- OUTSIDE RECORDS SUMMARY | 2025-07-31 15:33 | XMS_ITS | Encounter Summary ---
Author Organization [employer] Address [address] [place] [address] Care Team Providers Care Division Operations Specialist Name Role Phone Harris Hanks MD Primary Care Prov ider Encounter Details Date Type Department Care Team (Late st Contact Info) Description 12/28/2024 Orders Only [facility] [address] [place] [address] Harris Hanks MD [address] [place] [address] Social History Tobacco Use Types Packs/Day Years [...] 08/30/2025 8:30 AM EDT Telemedicine [facility] [address] [place] [address] Harris Hanks MD [address] [place] [address] documented as of this encounter Visit Diagnoses Not on filedocumented in this encounter Additional Health Concerns Assessment Noted Time PHQ-9 Depression Total Score: 4 12/28/19 25 11:24 AM EST documented as of this encounter Care Teams Division Operations Specialist Relationship Specialty Start Date End Date Harris Hanks MD [address] [place] [address] PCP - General Internal Medicine 11/10/24 documented as of this encounter
--- OUTSIDE RECORDS SUMMARY | 2025-07-31 15:34 | XMS_ITS | Clinical Summary ---
Author Organization [employer] Address [address] [place] [address] Care Team Providers Care Multiskill Operator Name Role Phone Harris Hanks MD [...] up Chronic right-sided low back pain with right-siara ed sciatica 12/28/2024 Assessment & Plan (12/28/2024 [...] Encounters Date Type Department Care Team Description 07/27/2025 3:45 PM EDT Office Visit [facility] [address] [place] [address] Va Negron MD Intraductal carcinoma of left breast (Primary Dx) 07/27/2025 Travel 07/27/2025 Telephone [facility] [address] [place] [address] Va Negron MD Results 07/19/2025 Orders Only [facility] External Provider, [facility] 07/17/2025 Telephone [facility] [address] [place] [address] Harris Hanks MD 06/30/2025 Orders Only [facility] [address] [place] [address] Harris Hanks MD Mass of lower outer quadrant of left breast (Primary Dx) 06/29/2025 Orders Only [facility] [address] [place] [address] Harris Hanks MD Mass of lower outer quadrant of left breast (Primary Dx) 06/09/2025 Telephone [facility] [address] [place] [address] Harris Hanks MD US BREAST APPT 06/07/2025 2:20 PM EDT Office Visit [facility] [address] [place] [address] Harris Hanks MD Mass of lower outer quadrant of left breast (Primary Dx) 06/07/2025 Travel 06/06/2025 Telephone [facility] [address] [place] [address] Harris Hanks MD 05/30/2025 8:30 AM EDT Office Visit [facility] [address] [place] [address] Harris Hanks MD Severe anxiety (Primary Dx) 05/30/2025 Travel 05/25/2025 2:00 PM EDT Office Visit [facility] [address] [place] [address] Yazmin Espinosa 05/08/2025 9:20 AM EDT Office Visit [facility] [address] [place] [address] Dayo Truong MD Irritant contact dermatitis due [...] 20 07/27/2025 3:44 PM EDT Oxygen Saturation 99% 05/30/2025 8:54 AM EDT Inhaled Oxygen Concentration - - Weight 84.4 kg (186 lb) 07/27/2025 3:44 PM EDT Height 164 cm (5' 4.57 ) 07/27/2025 3:44 PM EDT Body Mass Index 31.37 07/27/2025 3:44 PM EDT Plan of Treatment Upcoming Encounters Date Type Department Care Team ([facility] st Contact Info) Description 08/30/2025 8:30 AM EDT Telemedicine [facility] [address] [place] [address] Harris Hanks MD [address] [place] [address] Health Maintenance Due Date Last Done Comments HIV Screening 1997 Lipid Panel 1997 Disability Screening 1997 Family Planning (PISQ) 2012 Hepatitis C Screening 2015 Pneumococcal Vaccine: Pediatrics (0 to 5 Years) and At-Risk Patients (6 to 49) Years (1 of 2 - PCV) 2016 HPV/Cotest 04/09/2025 Pap Smear 04/09/2025 04/09/2022 Dental Oral Exam 04/12/2025 10/12/2024 COVID-19 Vaccine (3 - 2025-26 season) 2025 01/14/2023, 12/12/2022 Influenza Vaccine (#1) 2025 6, 08/17/2012, 10/31/2003 Diagnostic Breast Imaging 08/19/20252024, 07/06/2025, 06/29/2025, Additional history exists Mammogram 08/19/2025 07/19/2025, 06/23, 06/29/2025, Additional history exists Depression Monitoring 08/25/2025 02/23/2025, 025 Dental Prophylaxis 11/26/2025 05/25/2025, 0 02/22/2025, 10/12/2024, Additional history exists Dental X-Ray: Bitewings 12/14/2025 12/13/19, 10/12/2024, 01/22/2024 SDOH Screening 12/21/2025 12/21/2024 Alcohol/Substance Use Screening 12/28/2025 12/28/2024 Tobacco Screening 05/25/2026 05/25/2025 Dental X-Ray: Full Mouth 01/22/2027 01/22/2024, 09/23 DTaP/Tdap/Td Vaccines (9 - Td or Tdap) [...] Procedure Name Priority Date/Time Associated Diagnosis Comments US BREAST NDL CORE BIO EA ADD Routine 07/19/2025 3:20 PM EDT HEMATOXYLIN AND EOSIN STAIN Routine 07/19/2025 3:17 PM EDT US BREAST NDL CORE BIOPSY LT Routine 07/19/2025 2:55 PM EDT BI MAMMOGRAM DIAGNOSTIC TOMOSYNTHESIS LEFT Routine 07/19/2025 2:42 PM EDT BI MR BREAST W AND WO CONTRAST [...] caries associated with failed or defective dental amish Dental caries PERIODIC ORAL EVALUATION - ESTABLISHED PATIENT Routine 10/12/2024 5:00 PM EST INTRAORAL - COMPLETE SERIES OF RADIOGRAPHIC IMAGES Routine 01/22/2024 11:00 AM EST HM PAP/HPV Routine 04/09/2022 7:50 AM EDT from Last 3 Months or Most Recently Relevant to Health Maintenance Results * US BREAST NDL CORE BIO EA ADD (07/19/2025 3:20 PM EDT) Anatomical Region Laterality Modality Abdomen Ultrasound 07/19/2025 3:20 PM EDT Narrative 07/20/2025 12:41 PM EDT [facility] [address] [place] [address] Ultrasound Report Signed with Lalitha Patient: Lori Mejia MR#: [id number] : 1995 Acct:[id number] Age/Sex: 29 / F ADM Date: 07/19/25 Loc: NIKA.MAMMMarilin Attending Dr: Zach Zheng MD Ordering Physician: Zach Zheng MD Date of Service: 07/19/25 Procedure(s): US breast ndl core bio ea add Accession Number(s): [id number] cc: Harris Hanks MD; Zach Zheng MD Reason for Exam: R92.8 - Other abnormal and inconclusive findings on diagnostic imaging o... ADDENDUM ADDENDUM #1 ADDENDUM: Site A left breast mass at 3:00: Invasive ductal carcinoma. Site B left breast mass at 5:00 ultrasound-guided core needle biopsy: Invasive ductal carcinoma and ductal carcinoma in situ. These results are both malignant and concordant at both sites. The patient is under the care of a breast surgeon Dr. Zheng for excision and further management. Recommend breast oncology. Electronically signed by: Camryn Figueroa DO 07/26/2025 01:21 PM EDT Addendum Dictated By: Camryn Figueroa DO Addendum Signed By: <Electronically signed by Camryn Figueroa DO in OV> 07/26/25 1321 Addendum Cosigned By: DD/ TD/TT: 07/19/25 PROCEDURE: ULTRASOUND-GUIDED LEFT BREAST BIOPSY CLINICAL INFORMATION: Palpable left breast lump and suspicious findings on ultrasound and mammogram and MRI. COMPARISON: Priors on PACS. TECHNIQUE: The details of the procedure, as well as the risks, benefits, and alternatives to the procedure were explained to the patient in detail and all of her questions were answered, after which, written informed consent was obtained. PROCEDURE: Preprocedural ultrasound in the bilateral axillas demonstrated normal axillary tissue and normal axillary lymph nodes. Prior to the procedure, sonography revealed ill-defined solid irregular masses in the lower central breast and lower outer quadrant central outer breast.. A time-out was performed, the lesion intended for biopsy was targeted and the skin of the left breast was then prepped and draped in the usual sterile fashion. Site 1 3:00 left breast. Using sonographic guidance, sterile technique, and 1% lidocaine without epinephrine for local anesthesia, a total of 4 cores were obtained through the targeted area with a 14-gauge biopsy device. At the completion of tissue sampling, a single butterfly metallic clip was deposited at the biopsy site. Site 2 5:00 left breast. Using sonographic guidance, sterile technique, and 1% lidocaine without epinephrine for local anesthesia, a total of 6 cores were obtained through the targeted area with a 14-gauge biopsy device. At the completion of tissue sampling, a single open coil metallic clip was deposited at the biopsy site. An appropriate sample was obtained. The postprocedure 2-view direct digital mammogram reveals satisfactory positioning of the biopsy clips. The patient tolerated the procedure well and, after assuring adequate hemostasis, was discharged in good condition after reviewing postbiopsy breast care instructions. Final pathology results are pending. US/US breast ndl core bio ea add IMPRESSION: 1. Uncomplicated sonographically-guided core biopsy of the left breast at 2 sites 3:00 and 5:00. The 2-view direct digital postprocedure mammogram reveals satisfactory positioning of the biopsy clips. 2. Final pathology results are pending. A separate report with final recommendations will be issued once these results are made available. Electronically signed by: Camryn Figueroa DO 07/20/2025 12:38 PM EDT Dictated By: Camryn Figueroa DO Signed By: <Electronically signed by Camryn Figueroa DO in OV> 07/20/25 1238 DD/ 1520 TD/TT: 07/19/25 1533 Treasury Director: Procedure Note Donotuseinterpreter, Image - 07/28/2025 [facility] [address] [place], [place] [address] Ultrasound Report Signed with Addenda Patient: Lori Mejia JMR#: [id number] 384 : 1995Acct:[id number] Age/Sex: Date: 07/19/25 Loc: HO.MAMMO Attending Dr: Zach Zheng MD Ordering Physician: Zach Zheng MD Date of Service: 07/19/25 Procedure(s): US breast ndl core bio ea add Accession Number(s): [id number] cc: Harris Hanks MD; Zach Zheng MD Reason for Exam: R92.8 - Other abnormal and inconclusive findings ondiagnostic imaging o... ADDENDUM ADDENDUM #1 ADDENDUM: Site A left breast mass at 3:00: Invasive ductal carcinoma. Site B left breast mass at 5:00 ultrasound-guided core needle biopsy: Invasive ductal carcinoma and ductal carcinoma in situ. These results are both malignant and concordant at both sites. The patient is under the care of a breast surgeon Dr. Zheng for excision and further management. Recommend breast oncology. Electronically signed by: Camryn Figueroa DO 07/26/2025 01:21 PM EDT Addendum Dictated By: Camryn Figueroa DO Addendum Signed By: <Electronically signed by DO Esau in OV> 07/26/25 1321 Addendum Cosigned By: DD/ TD/TT: 07/19/25 PROCEDURE: ULTRASOUND-GUIDED LEFT BREAST BIOPSY CLINICAL INFORMATION: Palpable left breast lump and suspicious findings on ultrasound and mammogram and MRI. COMPARISON: Priors on PACS. TECHNIQUE: The details of the procedure, as well as the risks, benefits, and alternatives to the procedure were explained to the patient in detail and all of her questions were answered, after which, written informed consent was obtained. PROCEDURE: Preprocedural ultrasound in the bilateral axillas demonstrated normal axillary tissue and normal axillary lymph nodes. Prior to the procedure, sonography revealed ill-defined solid irregular masses in the lower central breast and lower outer quadrant central outer breast.. A time-out was performed, the lesion intended for biopsy was targeted and the skin of the left breast was then prepped and draped in the usual sterile fashion. Site 1 3:00 left breast. Using sonographic guidance, sterile technique, and 1% lidocaine without epinephrine for local anesthesia, a total of 4 cores were obtained through the targeted area with a 14-gauge biopsy device. At the completion of tissue sampling, a single butterfly metallic clip was deposited at the biopsy site. Site 2 5:00 left breast. Using sonographic guidance, sterile technique, and 1% lidocaine without epinephrine for local anesthesia, a total of 6 cores were obtained through the targeted area with a 14-gauge biopsy device. At the completion of tissue sampling, a single open coil metallic clip was deposited at the biopsy site. An appropriate sample was obtained. The postprocedure 2-view direct digital mammogram reveals satisfactory positioning of the biopsy clips. The patient tolerated the procedure well and, after assuring adequate hemostasis, was discharged in good condition after reviewing postbiopsy breast care instructions. Final pathology results are pending. US/US breast ndl core bio ea add IMPRESSION: 1. Uncomplicated sonographically-guided core biopsy of the left breast at 2 sites 3:00 and 5:00. The 2-view direct digital postprocedure mammogram reveals satisfactory positioning of the biopsy clips. 2. Final pathology results are pending. A separate report with final recommendations will be issued once these results are made available. Electronically signed by: Camryn Figueroa DO 07/20/2025 12:38 PM EDT Dictated By: Camryn Figueroa DO Signed By: <Electronically signed by Camryn Figueroa DO in OV> 07/20/25 1238 DD/ 1520 TD/TT: 07/19/25 1533 Treasury Director: [facility] External Provider IMG US PROCEDURES Edited Result - Final * Hematoxylin and Eosin Stain (07/19/2025 3:17 PM EDT) 07/19/2025 3:17 PM EDT 07/19/2025 3:51 PM EDT [facility] - 07/26/2025 1:09 PM EDT ----- ------- Name: MejiaLori Age/Sex: 29/F : 1995 Unit#: [id number] Attend Dr: Zach Zheng MD Re07/19/25 Status: DEP REF Location: HO.MAMMO Disch: ----- ------- SPEC : [id number] RECD: 07/19/25-1550 STATUS: SANTANA WHITTAKER NUM: [id number] DON: 07/19/25-1516 [facility] DR: Camryn Figueroa DO ENTERED: 07/19/25-1554 SP TYPE: Surgical OTHR DR: Harris Hanks MD, John J MD ORDERED: HE Stain/4, Gross Micro L4/2, ER/2, OR/2, IHC/2, Add. immunos/4, IHC ER/OR/Her2N/8, E-cadherin/2, Ki-67/2, p63/2, SMM/2, SFV3TXR/2 COMMENTS: As stated on the specimen requisition: Part A. Time in formalin 1527 Part B time in formalin 1535 Diagnosis A. Breast, left mass at 3 o'clock, biopsy: Invasive ductal carcinoma, MSBR grade 1. B. Breast, left mass at 5 o'clock, biopsy: - Invasive ductal carcinoma, MSBR grade 1. 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 Estrogen receptor (A): Positive (100% of tumor cells; moderate to strong intensity) Progesterone receptor (A): Positive (30% of tumor cells; weak to moderate intensity) HER2 (A): Low (1+) Proliferation index (A): Low (10% of tumor cells by Ki-67 immunostaining) Estrogen receptor (B): Positive (100% of tumor cells; moderate to strong intensity) Progesterone receptor (B): Positive (30% of tumor cells; weak to moderate intensity) HER2 (B): 2+ (FISH will be addended) Proliferation index (A): Low (10% of tumor cells by Ki-67 immunostaining) Breast Biopsy Data Synopsis Procedure: Core biopsy Specimen laterality: Left masses at 3 and 5 o'clock Histologic type: Ductal Histologic grade (Corby/MSBR histologic score): 1 - Glandular/tubular differentiation: Score: 1 - Nuclear pleomorphism: Score: 1 - Mitotic rate: Score: 1 Tumor size: Largest linear diameter: 14 mm (B) Ductal carcinoma in situ: Present, focal Lymphovascular invasion: Not identified Microcalcifications: Present Note: Some of the listed elements may change with subsequent review of the entire lesion. CONTINUED ON NEXT PAGE ----- ------- Name: Lori Mejia Age/Sex: / : 1995 Unit#: [id number] Attend Dr: Zach Zheng MD Re07/19/25 Status: DEP REF Location: HO.MAMMO Disch: ----- ------- SPEC : [id number] RECD: 07/19/25 STATUS: SANTANA WHITTAKER NUM: [id number] DON: 07/19/25 [facility] DR: Camryn Figueroa DO ENTERED: 07/19/25 SP TYPE: Surgical OTHR DR: Nadir Garcia,Harris Zheng,Zach Galvin MD ORDERED: HE Stain/4, Gross Micro L4/2, ER/2, OR/2, IHC/2, Add. immunos/4, IHC ER/OR/Her2N/8, E-cadherin/2, Ki-67/2, p63/2, SMM/2, ATN7LUQ/2 COMMENTS: As stated on the specimen requisition: Part A. Time in formalin 1527 Part B time in formalin 153 Clinical History Left breast masses 3 and 5 o'clock, question cancer vs other Microscopic Description A, B. The two biopsies are similar appearing. Sections have cores of breast tissue infiltrated by a carcinoma comprised of small ill-formed nests and tubules with background stromal desmoplastic changes. The tumor cells are small to medium in size, have moderate amphophilic cytoplasm and round/slightly irregular nuclei with variable chromatin. Background benign-appearing breast tissue is present in both sets of biopsies. By immunohistochemistry, no myoepithelial cells are seen in the invasive component, supported by p63 and smooth muscle myosin staining. E-cadherin immunostain is reactive in the tumor cells. Focal in-situ carcinoma is present in part B. Material Received A. Left breast mass 3 o'clock - question cancer vs other B. Left breast mass 5 o'clock - question cancer vs other Gross Description Received in 2 parts. A. Received in formalin labeled left breast 3 o'clock are 8 cylindrical portions of yellow-white fibrofatty breast tissue ranging from 0.2-1.7 cm in length all with a diameter of 0.2 cm which are wrapped in lens paper and entirely submitted for microscopic examination, 8 pieces in cassette A. B. Received in formalin labeled left breast 5:00 o'clock are 7 cylindrical portions of yellow-white fibrofatty breast tissue and clotted blood ranging from 0.4-1.7 cm in length all with a diameter of 0.2 cm which are wrapped in lens paper and entirely submitted for microscopic examination, 7 pieces in cassette B. ([facility]) Formalin-fixed paraffin-embedded tissue. Time tissue removed from patient: 1516 (A), 152 (B) Time tissue placed in fixative: 152 (A), 153 (B) Duration of fixation: between 6 and 24 hrs. CONTINUED ON NEXT PAGE ----- ------- Name: RobertoLori Galvin Age/Sex: : 1995 Unit#: [id number] Attend Dr: Zach Zheng MD Re07/19/25 Status: DEP REF Location: .MAMMO Disch: ----- ------- SPEC : [id number] RECD: 07/19/25 STATUS: SANTANA [facility] NUM: [id number] DON: 07/19/25 [facility] DR: Camryn Figueroa DO ENTERED: 07/19/25-1554 SP TYPE: Surgical OTHR DR: Harris Hanks MD, John J MD ORDERED: HE Stain/4, Gross Micro L4/2, ER/2, OR/2, IHC/2, Add. immunos/4, IHC ER/OR/Her2N/8, E-cadherin/2, Ki-67/2, p63/2, SMM/2, ZCJ0IBO/2 COMMENTS: As stated on the specimen requisition: Part A. Time in formalin 1526 Part B time in formalin 153 Gross Description (Continued) Estrogen and Progesterone receptor immunohistochemistry performed in accordance with ASCO/CAP recommendations (2010). Estrogen receptor: Clone SP1; Dako Envision+ Dual Link System-HRP. Progesterone receptor: Clone HhN517; Biocare Mach 4 detection system. Her-2/abdulkadir immunohistochemistry performed in accordance with ASCO/CAP recommendations (2007) and update (2013). Hercep Test Detection system: Polymer type Scoring criteria: For ER/OR and Her-2/abdulkadir: All internal (if present) and external controls react appropriately. ER and OR immunostains are scored as Positive (> 10% of tumor cell nuclei), Low Positive (1- 10% of tumor cell nuclei) or Negative (<1% of tumor cell nuclei) with associated staining intensity designation. The Negative category is further delineated by the presence or absence of internal positive control tissue. The HER2 immunostain assay is resulted as Positive (3+) with intense, complete membranous staining of more than 10% of the carcinoma or Negative (0) corresponding to negative or incomplete/weak membranous staining in <10% of cells. HER2 Low (1+) corresponding to incomplete/weak membranous staining in >10% of cells. The Equivocal (2+) designation reflects weak or non-uniform circumferential staining or dark (moderate) circumferential staining in less than 10% of the tumor cells. The Equivocal (2+) category includes a minor subset of patients that will show HER2 gene amplification, and therefore confirmatory HER2 FISH testing will be performed on all Equivocal cases. The Ki-67 immunostain is scored, according to cut-offs established in the monarchE trial, as High (> or = 20% of tumor cell nuclei) or Low (< 20% of tumor cell nuclei). Tumor cell nuclear staining intensity of 1+ or greater is positive. Elroy MUELLER, Jw BLANTON, et al. Human Epidermal Growth Factor Receptor 2 Testing in Breast Cancer: ASCO/CAP Clinical Practice Guideline Focus Update. Arch of Pathol Lab Med, 142 2018: 8176-0349. Evelin SUAREZ, Jw BLANTON, et al. Estrogen and Progesterone Receptor Testing in Breast Cancer: ASCO/CAP Guideline Update. Arch of Pathol Lab Med, 144 2020: 545-563. Milvia N, Addie P, et al. Adjuvant abemaciclib combined with endocrine therapy for high- risk early breast cancer: updated efficacy and Ki-67 analysis from the monarchE study. Kristel CONTINUED ON NEXT PAGE ----- ------- Name: Lori Mejia Age/Sex: / : 1995 Unit#: [id number] Attend Dr: Zach Zheng MD Re07/19/25 Status: DEP REF Location: HO.MAMMO Disch: ----- ------- SPEC : [id number] RECD: 07/19/25 STATUS: SANTANA [facility] NUM: [id number] DON: 07/19/25 [facility] DR: Camryn Figueroa DO ENTERED: 07/19/25-1554 SP TYPE: Surgical OTHR DR: Harris Hanks MD, John J MD ORDERED: HE Stain/4, Gross Micro L4/2, ER/2, OR/2, IHC/2, Add. immunos/4, IHC ER/OR/Her2N/8, E-cadherin/2, Ki-67/2, p63/2, SMM/2, KQA4LDK/2 COMMENTS: As stated on the specimen requisition: Part A. Time in formalin 1527 Part B time in formalin 1535 Gross Description (Continued) Oncol. 2020;32(12):2861-8394. This case was reviewed intradepartmentally; results were communicated to Drs. Zheng and Carolina on 07/26/2025. Special studies ordered and performed: immunostains for ER, OR, HER2, Ki-67, e-cadherin, p63 and smooth muscle myosin on A and B IHC S/NG Disclaimer NOTE: Unless otherwise stated, all tissue is formalin-fixed and paraffin-embedded. Some or all of the immunohistochemical tests reported herein may have been developed and their performance characteristics determined by [facility]. They have not been cleared or approved by the U.S. Food and Drug Administration (FDA). However, the FDA has determined that such clearance or approval is not necessary. This laboratory is certified under the Clinical Laboratory Improvement Amendments of 1988 (CLIA) as qualified to perform high complexity clinical laboratory testing. Copies To: Harris Hanks MD [address] [id number] Zach Zheng MD [facility] [address] [place] [id number] CarolinaCamryn [address] [place] [id number] CONTINUED ON NEXT PAGE ----- ------- Name: RobertoLori Age/Sex: 29/F : 1995 Unit#: [id number] Attend Dr: Zcah Zheng MD Re07/19/25 Status: DEP REF Location: EVI Disch: ----- ------- SPEC : [id number] RECD: 07/19/25-857 STATUS: SANTANA WHITTAKER NUM: [id number] DON: 07/19/25-1517 [facility] DR: CarolinaCamryn ENTERED: 07/19/25-1553 SP TYPE: Surgical OTHR DR: Nadir Garcia,Harris Zheng,Zach Galvin MD ORDERED: HE Stain/4, Gross Micro L4/2, ER/2, OR/2, IHC/2, Add. immunos/4, IHC ER/OR/Her2N/8, E-cadherin/2, Ki-67/2, p63/2, SMM/2, BMK1LEO/2 COMMENTS: As stated on the specimen requisition: Part A. Time in formalin 1527 Part B time in formalin 1535 ----- ------- Signed (signature on file) Bear Wilson MD 07/26/25 1309 ----- ------- END OF REPORT us Generic External Data Provider LAB BLOOD ORDERAB LES Final Result [facility] [address] [place] [phone] * US BREAST NDL CORE BIOPSY LT (07/19/2025 2:55 PM EDT) Anatomical Region Laterality Modality Abdomen Ultrasound 07/19/2025 2:55 PM EDT Narrative 07/20/2025 12:41 PM EDT [facility] [address] [place] [address] Dr. [place]ur, [place] [address] Ultrasound Report Signed with Addenda Patient: Lori Mejia MR#: [id number] : 1995 Acct:[id number] Age/Sex: 29 / F ADM Date: 07/19/25 Loc: HO.MAMMO Attending Dr: Zach Zheng MD Ordering Physician: Zach Zheng MD Date of Service: 07/19/25 Procedure(s): US breast ndl core biopsy LT Accession Number(s): [id number] cc: Harris Hanks MD; Zach Zheng MD Reason for Exam: R92.8 - Other abnormal and inconclusive findings on diagnostic imaging o... ADDENDUM ADDENDUM #1 ADDENDUM: Site A left breast mass at 3:00: Invasive ductal carcinoma. Site B left breast mass at 5:00 ultrasound-guided core needle biopsy: Invasive ductal carcinoma and ductal carcinoma in situ. These results are both malignant and concordant at both sites. The patient is under the care of a breast surgeon Dr. Zheng for excision and further management. Recommend breast oncology. Electronically signed by: Camryn Figueroa DO 07/26/2025 01:21 PM EDT Addendum Dictated By: Camryn Figueroa DO Addendum Signed By: <Electronically signed by Camryn Figueroa DO in OV> 07/26/25 1321 Addendum Cosigned By: DD/ TD/TT: 07/19/25 PROCEDURE: ULTRASOUND-GUIDED LEFT BREAST BIOPSY CLINICAL INFORMATION: Palpable left breast lump and suspicious findings on ultrasound and mammogram and MRI. COMPARISON: Priors on PACS. TECHNIQUE: The details of the procedure, as well as the risks, benefits, and alternatives to the procedure were explained to the patient in detail and all of her questions were answered, after which, written informed consent was obtained. PROCEDURE: Preprocedural ultrasound in the bilateral axillas demonstrated normal axillary tissue and normal axillary lymph nodes. Prior to the procedure, sonography revealed ill-defined solid irregular masses in the lower central breast and lower outer quadrant central outer breast.. A time-out was performed, the lesion intended for biopsy was targeted and the skin of the left breast was then prepped and draped in the usual sterile fashion. Site 1 3:00 left breast. Using sonographic guidance, sterile technique, and 1% lidocaine without epinephrine for local anesthesia, a total of 4 cores were obtained through the targeted area with a 14-gauge biopsy device. At the completion of tissue sampling, a single butterfly metallic clip was deposited at the biopsy site. Site 2 5:00 left breast. Using sonographic guidance, sterile technique, and 1% lidocaine without epinephrine for local anesthesia, a total of 6 cores were obtained through the targeted area with a 14-gauge biopsy device. At the completion of tissue sampling, a single open coil metallic clip was deposited at the biopsy site. An appropriate sample was obtained. The postprocedure 2-view direct digital mammogram reveals satisfactory positioning of the biopsy clips. The patient tolerated the procedure well and, after assuring adequate hemostasis, was discharged in good condition after reviewing postbiopsy breast care instructions. Final pathology results are pending. US/US breast ndl core biopsy LT IMPRESSION: 1. Uncomplicated sonographically-guided core biopsy of the left breast at 2 sites 3:00 and 5:00. The 2-view direct digital postprocedure mammogram reveals satisfactory positioning of the biopsy clips. 2. Final pathology results are pending. A separate report with final recommendations will be issued once these results are made available. Electronically signed by: Camryn Figueroa DO 07/20/2025 12:38 PM EDT Dictated By: Camryn Figueroa DO Signed By: <Electronically signed by Camryn Figueroa DO in OV> 07/20/25 1238 DD/ 1455 TD/TT: 07/19/25 1545 Treasury Director: Procedure Note Donotuseinterpreter, Image - [facility]28/[facility] [address] [place], [place] [address] Ultrasound Report Signed with Lalitha Patient: Lamont Mejiaherlinda JMR#: [id number] : 1995Acct:[id number] Age/Sex: Date: 07/19/25 Loc: NIKA.MAMMO Attending Dr: Zach Zheng MD Ordering Physician: Zach Zheng MD Date of Service: 07/19/25 Procedure(s): US breast ndl core biopsy LT Accession Number(s): [id number] cc: Harris Hanks MD; Zach Zheng MD Reason for Exam: R92.8 - Other abnormal and inconclusive findings ondiagnostic imaging o... ADDENDUM ADDENDUM #1 ADDENDUM: Site A left breast mass at 3:00: Invasive ductal carcinoma. Site B left breast mass at 5:00 ultrasound-guided core needle biopsy: Invasive ductal carcinoma and ductal carcinoma in situ. These results are both malignant and concordant at both sites. The patient is under the care of a breast surgeon Dr. Zheng for excision and further management. Recommend breast oncology. Electronically signed by: Camryn Figueroa DO 07/26/2025 01:21 PM EDT Addendum Dictated By: Camryn Figueroa DO Addendum Signed By: <Electronically signed by DO Esau in OV> 07/26/25 1321 Addendum Cosigned By: DD/ TD/TT: 07/19/25 PROCEDURE: ULTRASOUND-GUIDED LEFT BREAST BIOPSY CLINICAL INFORMATION: Palpable left breast lump and suspicious findings on ultrasound and mammogram and MRI. COMPARISON: Priors on PACS. TECHNIQUE: The details of the procedure, as well as the risks, benefits, and alternatives to the procedure were explained to the patient in detail and all of her questions were answered, after which, written informed consent was obtained. PROCEDURE: Preprocedural ultrasound in the bilateral axillas demonstrated normal axillary tissue and normal axillary lymph nodes. Prior to the procedure, sonography revealed ill-defined solid irregular masses in the lower central breast and lower outer quadrant central outer breast.. A time-out was performed, the lesion intended for biopsy was targeted and the skin of the left breast was then prepped and draped in the usual sterile fashion. Site 1 3:00 left breast. Using sonographic guidance, sterile technique, and 1% lidocaine without epinephrine for local anesthesia, a total of 4 cores were obtained through the targeted area with a 14-gauge biopsy device. At the completion of tissue sampling, a single butterfly metallic clip was deposited at the biopsy site. Site 2 5:00 left breast. Using sonographic guidance, sterile technique, and 1% lidocaine without epinephrine for local anesthesia, a total of 6 cores were obtained through the targeted area with a 14-gauge biopsy device. At the completion of tissue sampling, a single open coil metallic clip was deposited at the biopsy site. An appropriate sample was obtained. The postprocedure 2-view direct digital mammogram reveals satisfactory positioning of the biopsy clips. The patient tolerated the procedure well and, after assuring adequate hemostasis, was discharged in good condition after reviewing postbiopsy breast care instructions. Final pathology results are pending. US/US breast ndl core biopsy LT IMPRESSION: 1. Uncomplicated sonographically-guided core biopsy of the left breast at 2 sites 3:00 and 5:00. The 2-view direct digital postprocedure mammogram reveals satisfactory positioning of the biopsy clips. 2. Final pathology results are pending. A separate report with final recommendations will be issued once these results are made available. Electronically signed by: Camryn Figueroa DO 07/20/2025 12:38 PM EDT Dictated By: Camryn Figueroa DO Signed By: <Electronically signed by Camryn Figueroa DO in OV> 07/20/25 1238 DD/ 1455 TD/TT: 07/19/25 1545 Treasury Director: [facility] External Provider IMG US PROCEDURES Edited Result - Final * BI Mammogram Diagnostic Tomosynthesis Left (07/19/2025 2:42 PM EDT) Anatomical Region Laterality Modality Breast Left Mammography 07/19/2025 2:42 PM EDT Narrative 07/20/2025 12:41 PM EDT [facility] [address] [place], [place] [address] Mammography Report Signed with Patyenda Patient: Lori Mejia MR#: [id number] 384 : 1995 Acct:[id number] Age/Sex: 29 / F ADM Date: 07/19/25 Loc: HO.MAMMO Attending Dr: Zach Zheng MD Ordering Physician: Zach Zheng MD Results: Date of Service: 07/19/25 Follow Up: Procedure(s): MM tomosynthesis diagnostic LT Accession Number(s): [id number] cc: Harris Hanks MD; Zach Zheng MD ADDENDUM ADDENDUM #1 ADDENDUM: Site A left breast mass at 3:00: Invasive ductal carcinoma. Site B left breast mass at 5:00 ultrasound-guided core needle biopsy: Invasive ductal carcinoma and ductal carcinoma in situ. These results are both malignant and concordant at both sites. The patient is under the care of a breast surgeon Dr. Zheng for excision and further management. Recommend breast oncology. Electronically signed by: Camryn Figueroa DO 07/26/2025 01:21 PM EDT Addendum Dictated By: Camryn Figueroa DO Addendum Signed By: <Electronically signed by Camryn Figueroa DO in OV> 07/26/25 1321 Addendum Cosigned By: DD/ TD/TT: 07/19/25 PROCEDURE: ULTRASOUND-GUIDED LEFT BREAST BIOPSY CLINICAL INFORMATION: Palpable left breast lump and suspicious findings on ultrasound and mammogram and MRI. COMPARISON: Priors on PACS. TECHNIQUE: The details of the procedure, as well as the risks, benefits, and alternatives to the procedure were explained to the patient in detail and all of her questions were answered, after which, written informed consent was obtained. PROCEDURE: Preprocedural ultrasound in the bilateral axillas demonstrated normal axillary tissue and normal axillary lymph nodes. Prior to the procedure, sonography revealed ill-defined solid irregular masses in the lower central breast and lower outer quadrant central outer breast.. A time-out was performed, the lesion intended for biopsy was targeted and the skin of the left breast was then prepped and draped in the usual sterile fashion. Site 1 3:00 left breast. Using sonographic guidance, sterile technique, and 1% lidocaine without epinephrine for local anesthesia, a total of 4 cores were obtained through the targeted area with a 14-gauge biopsy device. At the completion of tissue sampling, a single butterfly metallic clip was deposited at the biopsy site. Site 2 5:00 left breast. Using sonographic guidance, sterile technique, and 1% lidocaine without epinephrine for local anesthesia, a total of 6 cores were obtained through the targeted area with a 14-gauge biopsy device. At the completion of tissue sampling, a single open coil metallic clip was deposited at the biopsy site. An appropriate sample was obtained. The postprocedure 2-view direct digital mammogram reveals satisfactory positioning of the biopsy clips. The patient tolerated the procedure well and, after assuring adequate hemostasis, was discharged in good condition after reviewing postbiopsy breast care instructions. Final pathology results are pending. MM/MM tomosynthesis diagnostic LT IMPRESSION: 1. Uncomplicated sonographically-guided core biopsy of the left breast at 2 sites 3:00 and 5:00. The 2-view direct digital postprocedure mammogram reveals satisfactory positioning of the biopsy clips. 2. Final pathology results are pending. A separate report with final recommendations will be issued once these results are made available. Electronically signed by: Camryn Figueroa DO 07/20/2025 12:38 PM EDT Dictated By: Camryn Figueroa DO Signed By: <Electronically signed by Camryn Figueroa DO in OV> 07/20/25 1238 DD/ 1442 TD/TT: 07/19/25 1545 Treasury Director: Procedure Note Donotuseinterpreter, Image - 07/28/2025 [place] [facility] [address] [place] [address] Mammography Report Signed with Lalitha Patient: Lori Mejia JMR#: [id number] 384 : 1995Acct:[id number] Age/Sex: FADM Date: 07/19/25 Loc: JARRELLO Attending Dr: Zach Zheng MD Ordering Physician: Zach Zheng MDResults: Date of Service: 07/19/25Follow Up: Procedure(s): MM tomosynthesis diagnostic LT Accession Number(s): [id number] cc: Harris Hanks MD; Zach Zheng MD ADDENDUM ADDENDUM #1 ADDENDUM: Site A left breast mass at 3:00: Invasive ductal carcinoma. Site B left breast mass at 5:00 ultrasound-guided core needle biopsy: Invasive ductal carcinoma and ductal carcinoma in situ. These results are both malignant and concordant at both sites. The patient is under the care of a breast surgeon Dr. Zheng for excision and further management. Recommend breast oncology. Electronically signed by: Camryn Figueroa DO 07/26/2025 01:21 PM EDT Addendum Dictated By: Camryn Figueroa DO Addendum Signed By: <Electronically signed by DO Esau in OV> 07/26/25 1321 Addendum Cosigned By: DD/ TD/TT: 07/19/25 PROCEDURE: ULTRASOUND-GUIDED LEFT BREAST BIOPSY CLINICAL INFORMATION: Palpable left breast lump and suspicious findings on ultrasound and mammogram and MRI. COMPARISON: Priors on PACS. TECHNIQUE: The details of the procedure, as well as the risks, benefits, and alternatives to the procedure were explained to the patient in detail and all of her questions were answered, after which, written informed consent was obtained. PROCEDURE: Preprocedural ultrasound in the bilateral axillas demonstrated normal axillary tissue and normal axillary lymph nodes. Prior to the procedure, sonography revealed ill-defined solid irregular masses in the lower central breast and lower outer quadrant central outer breast.. A time-out was performed, the lesion intended for biopsy was targeted and the skin of the left breast was then prepped and draped in the usual sterile fashion. Site 1 3:00 left breast. Using sonographic guidance, sterile technique, and 1% lidocaine without epinephrine for local anesthesia, a total of 4 cores were obtained through the targeted area with a 14-gauge biopsy device. At the completion of tissue sampling, a single butterfly metallic clip was deposited at the biopsy site. Site 2 5:00 left breast. Using sonographic guidance, sterile technique, and 1% lidocaine without epinephrine for local anesthesia, a total of 6 cores were obtained through the targeted area with a 14-gauge biopsy device. At the completion of tissue sampling, a single open coil metallic clip was deposited at the biopsy site. An appropriate sample was obtained. The postprocedure 2-view direct digital mammogram reveals satisfactory positioning of the biopsy clips. The patient tolerated the procedure well and, after assuring adequate hemostasis, was discharged in good condition after reviewing postbiopsy breast care instructions. Final pathology results are pending. MM/MM tomosynthesis diagnostic LT IMPRESSION: 1. Uncomplicated sonographically-guided core biopsy of the left breast at 2 sites 3:00 and 5:00. The 2-view direct digital postprocedure mammogram reveals satisfactory positioning of the biopsy clips. 2. Final pathology results are pending. A separate report with final recommendations will be issued once these results are made available. Electronically signed by: Camryn Figueroa DO 07/20/2025 12:38 PM EDT Dictated By: Camryn Figueroa DO Signed By: <Electronically signed by Camryn Figueroa DO in OV> 07/20/25 1238 DD/ 1442 TD/TT: 07/19/25 1545 Treasury Director: [facility] External Provider IMG BI PROCEDURES Edited Result - Final * BI MR Breast w and w/o Contrast Bilateral (07/06/2025 3:00 PM EDT) Anatomical Region Laterality Modality Breast Bilateral Magnetic Resonan ce 07/06/2025 3:00 PM EDT Narrative 07/10/2025 9:19 AM EDT [address] [address] Magnetic Resonance Report Signed Patient: Lori Mejia MR#: [id number] 384 : 1995 Acct:[id number] Age/Sex: 29 / F ADM Date: 07/06/25 Loc: HO.MRI Attending Dr: Harris Garcia MD Ordering Physician: Harris Hanks MD Date of Service: 07/06/25 Procedure(s): MR breast BI wo/w con Accession Number(s): [id number] cc: Harris Hanks MD EXAMINATION: MR BREAST [...] 07/10/25 0916 DD/ 1500 TD/TT: 07/06/25 1540 Treasury Director: Procedure Note Donotuseinterpreter, Image - 07/10/2025 [place] [address] Magnetic Resonance Report Signed Patient: Lori Mejia JMR#: [id number] 384 : 1995Acct:[id number] Age/Sex: 29 / FADM Date: 07/06/25 Loc: HO.MRI Attending Dr: Harris Garcia MD Ordering Physician: Harris Hanks MD Date of Service: 07/06/25 Procedure(s): MR breast BI wo/w con Accession Number(s): [id number] cc: Harris Hanks MD EXAMINATION: MR BREAST [...] 07/10/25 0916 DD/ 1500 TD/TT: 07/06/25 1540 Treasury Director: Harris Garcia MD IMG MRI PROCEDURES Final Result * BI Mammogram Diagnostic Tomosynthesis Bilateral (06/29/2025 11:30 AM EDT) Anatomical Region Laterality Modality Breast Bilateral Mammography 06/29/2025 11:3 0 AM EDT Narrative 06/29/2025 2:33 PM EDT [facility] [address] [place], [place] [address] Mammography Report Signed Patient: Lori Mejia MR#: [id number] 384 : 1995 Acct:[id number] Age/Sex: 29 / F ADM Date: 06/29/25 Loc: HO.MAMMO Attending Dr: Harris Garcia MD Ordering Physician: Harris Hanks MD Res ults: 4Suspicious Finding Date of Service: 06/29/25 Follow Up: Biopsy Recommend ed Procedure(s): MM tomosynthesis diagnostic BI Accession Number(s): [id number] cc: Harris Hanks MD EXAMINATION: MM DIAGNOSTIC [...] 06/29/25 1430 DD/ 1130 TD/TT: 06/29/25 1145 Treasury Director: Procedure Note Donotuseinterpreter, Image - 06/29/2025 [facility] [address] [place] [address] Mammography Report Signed Patient: Lori Mejia JMR#: [id number] 384 : 1995Acct:[id number] Age/Sex: 29 / FADM Date: 06/29/25 Loc: HO.MAMMO Attending Dr: Harris Garcia MD Ordering Physician: Harris Hanks ults: 4Suspicious Finding Date of Service: 06/29/25Follow Up: Biopsy Recommend ed Procedure(s): MM tomosynthesis diagnostic BI Accession Number(s): [id number] cc: Harris Hanks MD EXAMINATION: MM DIAGNOSTIC [...] 06/29/25 1430 DD/ 1130 TD/TT: 06/29/25 1145 Treasury Director: Harris Garcia MD IMG BI PROCEDURES Final Result * BI US Breast Limited Left (06/29/2025 11:12 AM EDT) Anatomical Region Laterality Modality Breast Left Ultrasound 06/29/2025 11:1 2 AM EDT Narrative 06/29/2025 2:33 PM EDT [facility] [address] [place] [address] Ultrasound Report Signed Patient: Lori Mejia MR#: [id number] 384 : 1995 Acct:[id number] Age/Sex: 29 / F ADM Date: 06/29/25 Loc: HO.MAMMO Attending Dr: Harris Garcia MD Ordering Physician: Harris Hanks MD Date of Service: 06/29/25 Procedure(s): US breast LT limited mamm only Accession Number(s): [id number] cc: Harris Hanks MD EXAMINATION: MM DIAGNOSTIC [...] 06/29/25 1430 DD/ 1112 TD/TT: 06/29/25 1130 Treasury Director: Procedure Note Donotuseinterpreter, Image - 06/30/2025 [facility] [address] [place], [place] [address] Ultrasound Report Signed Patient: Lori Mejia JMR#: [id number] 384 : 1995Acct:[id number] Age/Sex: Date: 06/29/25 Loc: HO.MAMMO Attending Dr: Harris Garcia MD Ordering Physician: Harris Hanks MD Date of Service: 06/29/25 Procedure(s): US breast LT limited mamm only Accession Number(s): [id number] cc: Harris Hanks MD EXAMINATION: MM DIAGNOSTIC [...] 06/29/25 1430 DD/ 1112 TD/TT: 06/29/25 1130 Treasury Director: us Harris Garcia MD IMMerari US PROCEDURES Final Result * HM PAP/HPV (04/09/2022 7:50 AM EDT) us Historical Provider HEALTH MAINTENANCE Final Result from Last 3 Months or Most Recently Relevant to Health Maintenance Insurance [facility] , [address] [place] [address] DENTAL - HSN FULL (MEDICAID) Care Teams Multiskill Operator Relationship Specialty Start Date End Date Harris Hanks MD [address] [place] [id number] PCP - General Internal Medicine 11/10/24
== END 2025-07-31 14:00 | disposition home or self-care (01) ==
LOC: HO.HGS 13:10
PROVIDERS: PCP Internal Medicine; Visit Provider Surgery
DX: C50.912 Malignant neoplasm of unspecified site of left female breast (principal)
CPT/HCPCS: 99213

== ENCOUNTER → 2025-08-01 13:10 | Outpatient (BNV) | payer OTHER, SELFPAY | PROVIDERS: PCP Internal Medicine; Referring Provider Surgery; Visit Provider Internal Medicine | DX: C50.812 Malignant neoplasm of overlapping sites of left female breast (principal) | CPT/HCPCS: 99205; G2211 ==

== ENCOUNTER → 2025-08-03 14:55 | Outpatient (REF) | payer OTHER, SELFPAY ==
--- NOTE | 2025-08-03 15:00 | CA_ITS ---
Transthoracic Echocardiogram Patient (Last, First, Middle): Lori Mejia J Gender: F Date of : 1995 Age: 29 Procedure Date: 08/03/2025 Procedure Type: Transthoracic Echocardiogram Location: OP Height: 165.1 cm Weight: 84.37 kg BSA: 1.92 m2 Heart Rate: 58 bpm BP: 105 / 70 mmHg Home Energy Consultant Supervisor: DAKOTAH Abel MD: Toshia Lacey MD Glove Machine Operator: Cheo Ding MD Symptoms: Pre chemo evaluation Study Quality: Good ECG Rhythm: Sinus Conclusions: - Normal study Findings Left Ventricle Normal left ventricular size, thickness, and systolic function. The visually estimated ejection fraction is between 65-70%. Diastolic function is normal for age. Peak GLS is -21.6%, within normal limits. Right Ventricle Normal right ventricular cavity size and systolic function. Atria Both atria are normal in size. There is no evidence of interatrial shunt. Aortic Valve Normal aortic valve structure and function. There is no aortic valve stenosis. There is no aortic valve regurgitation. Mitral Valve Normal mitral valve structure and function. There is trace mitral valve regurgitation. There is no mitral valve stenosis. Pulmonic Valve The pulmonic valve is likely normal. There is trace pulmonic valve regurgitation. Tricuspid Valve Normal tricuspid valve structure. Tricuspid regurgitation envelope is inadequate for calculation of right ventricular systolic pressure. Normal right atrial pressure. Great Vessels All visible segments of the aorta are normal in size. The visualized portions of the pulmonary artery and branches are normal. Venous The inferior vena cava is normal in size and collapses greater than 50% with inspiration. Pericardium/Pleural There is no evidence of pericardial effusion. Prior Study Comparison No prior study available for comparison. Measurements 2D Linear Measurements IVSd: 0.83 0.6-0.9/0.6-1.0 cm LVIDd: 5.18 3.9-5.3/4.2-5.9 cm LVIDd Index: 2.70 2.4-3.2/2.2-3.1 cm/m2 LVIDs: 3.44 2.0-3.6 cm LVPWd: 0.99 0.7-1.1 cm LA Diam: 2.80 2.7-3.8/3.0-4.0 cm LAIDs Index: 1.46 1.5-2.3 cm/m2 LV Mass: 211.86 67-162/88-224 g LV Mass Index: 110.35 43-95/49-115 g/m2 LVOT Diam: 2.20 3.0+(-)1.3 cm 2D Systolic Function EF 4C: 64.60 >55% EF 2C: 68.30 >55% EF BiP: 65.70 >55% Mitral Valve MV Pk E: 1.11 MV PK A: 0.53 MV Decel Time: 284.00 E/A: 2.10 E'Lateral: 15.30 E'Medial: 13.30 E/E' Med: 8.30 E/E' Lat: 7.30 PHT: 83.00 MVA PHT: 2.65 Decel Inyo: 3.90 Aortic Valve AoV Pk Americo: 1.76 AoV Mn Americo: 1.15 AoV VTI: 0.41 AoV Pk Grad: 12.00 Aov Mn Grad: 6.00 ELIZABETH Cont.VTI: 2.07 LVOT LVOT Pk Americo: 1.01 LVOT Mn Americo: 0.72 LVOT VTI: 0.22 LVOT Pk Grad: 4.00 LVOT Mn Grad: 2.00 LVOT Diam: 2.20 LVOT Area: 3.80 Diastolic Function MV Pk E: 1.11 MV Pk A: 0.53 E/A: 2.10 E'Medial: 13.30 E/E' Med: 8.30 E' Laterial: 15.30 E/E' Lat: 7.30 Right Ventricle TAPSE (mm): 22.60 TVS' Americo: 13.20 Tricuspid Valve RA Press: 3.00 Great Vessels Aorta Sinus of Valsalva: 2.90 2.0-3.5 cm Ao Asc: 2.40 2.1-3.4 cm Pulmonary Veins Pulm Vein S/D 0.70 Pulmonary Valve PV Pk Americo: 0.94 Peak PV Grad: 3.00 Updated in Other Vendor System with Status of Final Cheo Ding MD electronically signed on 08/03/2025 4:24:07 PM with status of Final
--- OUTSIDE RECORDS SUMMARY | 2025-08-03 18:23 | XMS_ITS | Clinical Summary ---
Author Organization [employer] Address [address] [place] [address] Care Team Providers Care Software Sales Name Role Phone Harris Hanks MD Primary [...] 07/27/2025 3:45 PM EDT Office Visit [facility] MED & PEDS [address] [place] [address] Va Negron MD Intraductal carcinoma of left breast (Primary Dx) 07/27/2025 Travel 07/27/[address] [facility] [address] [place] [address] Va Negron MD Results 07/19/2025 Orders Only [facility] External Provider, [facility] 07/17/2025 Telephone [facility] [address] [place] [address] Harris Hanks MD 06/30/[address] [facility] P[facility] [address] [place] [address] Harris Hanks MD Mass of lower outer quadrant of left breast (Primary Dx) 06/29/[address] [facility] PEDS [address] [place] [address] Harris Hanks MD Mass of lower outer quadrant of left breast (Primary Dx) 06/09/[address] [facility] [address] [place] [address] Harris Hanks MD US BREAST APPT 06/07/2025 2:20 PM EDT Office Visit [facility] [address] [place] [address] Harris Hanks MD Mass of lower outer quadrant of left breast (Primary Dx) 06/07/2025 Travel 06/06/[address] [facility] [address] [place] [address] Harris Hanks MD 05/30/2025 8:30 AM EDT Office Visit [facility] [address] [place] [address] Harris Hanks MD Severe anxiety (Primary Dx) 05/30/2025 Travel 05/25/2025 2:00 PM EDT Office Visit [facility] ADULT DENTAL [address] [place] [address] Yazmin Espinosa 05/08/2025 9:20 AM EDT Office Visit [facility]ED[facility] [address] [place] [address] Dayo Truong MD Irritant contact dermatitis due [...] Upcoming Encounters Date Type Department Care Team ([facility] st Contact Info) Description 08/30/2025 8:30 AM EDT Telemedicine [facility] PEDS [address] [place] [address] Harris Hanks MD [address] [place] [address] Health Maintenance Due Date Last Done Comments [...] caries associated with failed or defective dental mosque Dental caries PERIODIC ORAL EVALUATION - ESTABLISHED [...] PM EDT Narrative 07/20/2025 12:41 PM EDT [facility] [address] [place] [address] Ultrasound Report Signed with Lalitha Patient: Lori Mejia MR#: [id number] 384 : 1995 Acct:[id number] Age/Sex: 29 / F ADM Date: 07/19/25 Loc: NIKA.MAMMMarilin Attending Dr: Zach Zheng MD Ordering Physician: Zach Zheng MD Date of Service: 07/19/25 Procedure(s): US breast ndl core bio ea add Accession Number(s): [id number] cc: Harris Hanks MD; Zach Zheng MD [...] 07/20/25 1238 DD/ 1520 TD/TT: 07/19/25 1533 Senior Staff Psychologist: Procedure Note Donotuseinterpreter, Image - 07/28/2025 [facility]'s [address] [place], [place] [address] Ultrasound Report Signed with Addenda Patient: Lori Mejia JMR#: [id number] 384 : 1995Acct:[id number] Age/Sex: Date: 07/19/25 Loc: HO.MAMMO Attending Dr: Zach Zheng MD Ordering Physician: Zach Zheng MD Date of Service: 07/19/25 Procedure(s): US breast ndl core bio ea add Accession Number(s): [id number] cc: Harris Hanks MD; Zach Zheng MD [...] 07/20/25 1238 DD/ 1520 TD/TT: 07/19/25 1533 Senior Staff Psychologist: [facility] External Provider IMG US PROCEDURES Edited Result - Final * Hematoxylin and Eosin Stain (07/19/2025 3:17 PM EDT) 07/19/2025 3:17 PM EDT 07/19/2025 3:51 PM EDT [facility] LABS - 08/02/2025 2:22 PM EDT ----- ------- Name: RobertoLori Galvin Age/Sex: 29/F : 1995 Unit#: [id number] Attend Dr: Zach Zheng MD Re07/19/25 Status: DEP REF Location: HO.MAMMO Disch: ----- ------- SPEC : [id number] RECD: 07/19/25 STATUS: SANTANA WHITTAKER NUM: [id number] DON: 07/19/25 [facility] [address]: Camryn Figueroa DO ENTERED: 07/19/25 SP TYPE: Surgical OTHR DR: Harris Hanks MD, John J MD ORDERED: HE Stain/4, Gross Micro L4/2, ER/2, NC/2, IHC/2, Add. immunos/4, IHC ER/NC/Her2N/8, E-cadherin/2, Ki-67/2, p63/2, SMM/2, MHN2HKM/2 COMMENTS: Block B, 1 H E, 1 stained slide sent to [facility] for HER2 FISH on 08/02/25. As stated on the specimen requisition: Part A. Time in formalin 1527 Part B time in formalin 1535 THIS IS A CORRECTED REPORT 08/02/25 This is a corrected report. Any previous versions are stored internally and are available if necessary. Diagnosis A. Breast, left mass at 3 [...] 2+ (FISH will be addended) Proliferation index (B): Low (10% of tumor cells by Ki-67 immunostaining) Breast Biopsy Data Synopsis Procedure: Core biopsy Specimen laterality: Left masses at 3 and 5 o'clock Histologic type: Ductal Histologic grade (Corby/MSBR histologic score): 1 - Glandular/tubular differentiation: Score: 2 - Nuclear pleomorphism: Score: 2 - Mitotic rate: Score: 1 Tumor size: Largest linear diameter: 14 mm (B) Ductal carcinoma in situ: Present, focal Lymphovascular invasion: Not identified Microcalcifications: Present Note: Some of the listed elements may change with subsequent review of the entire lesion. CONTINUED ON NEXT PAGE ----- ------- Name: Lori Mejia Age/Sex: /F : 1995 Unit#: [id number] Attend Dr: Zach Zheng MD Re07/19/25 Status: DEP [facility] ----- ------- SPEC : [id number] RECD: 07/19/25 STATUS: SANTANA WHITTAKER NUM: [id number] DON: 07/19/25 [facility] [address]: Camryn Figueroa DO ENTERED: 07/19/25 SP TYPE: Surgical OTHR DR: Nadir Garcia,Harris Zheng,Zach Galvin MD ORDERED: HE Stain/4, Gross Micro L4/2, ER/2, NC/2, IHC/2, Add. immunos/4, IHC ER/NC/Her2N/8, E-cadherin/2, Ki-67/2, p63/2, SMM/2, WDP0UQH/2 COMMENTS: Block B, 1 H E, 1 stained slide sent to [facility] for HER2 FISH on 08/02/25. As stated on the specimen requisition: Part A. Time in formalin 1527 Part B time in formalin 1535 Note: Corrected report note (08/02/2025): In the data synopsis, change the grade scoring from 1 to 2 for both nuclear pleomorphism and glandular differentiation (no change in overall grade). Clinical History Left breast masses 3 and [...] blood ranging from 0.4-1.7 cm in length CONTINUED ON NEXT PAGE ----- ------- Name: Lori Mejia Age/Sex: 29/F : 1995 Unit#: [id number] Attend Dr: Zach Zheng MD Re07/19/25 Status: DEP REF Location: HO.MAMMO Disch: ----- ------- SPEC : [id number] RECD: 07/19/25 STATUS: SANTANA WHITTAKER NUM: [id number] DON: 07/19/25-15[address] [facility] [address]: Camryn Figueroa DO ENTERED: 07/19/25-1554 SP TYPE: Surgical OTHR DR: Harris Hanks MD, John J MD ORDERED: HE Stain/4, Gross Micro L4/2, ER/2, NC/2, IHC/2, Add. immunos/4, IHC ER/NC/Her2N/8, E-cadherin/2, Ki-67/2, p63/2, SMM/2, SWH7HJE/2 COMMENTS: Block B, 1 H E, 1 stained slide sent to [facility] for HER2 FISH on 08/02/25. As stated on the specimen requisition: Part A. Time in formalin 1527 Part B time in formalin 1535 Gross Description (Continued) all with a diameter of 0.2 cm which are wrapped in lens paper and entirely submitted for microscopic examination, 7 pieces in cassette B. (SMC) Formalin-fixed paraffin-embedded tissue. Time tissue removed from patient: 151 (A), 152 (B) Time tissue placed in fixative: 152 (A), 153 (B) Duration of fixation: between 6 and 24 hrs. Estrogen and Progesterone receptor immunohistochemistry performed in accordance with ASCO/CAP recommendations (2010). Estrogen receptor: Clone SP1; Dako Envision+ Dual Link System-HRP. Progesterone receptor: Clone BcZ000; TELiBrahma Mach 4 detection system. Her-2/abdulkadir immunohistochemistry performed in accordance with ASCO/CAP recommendations (2007) and update (2013). Hercep Test Detection system: Polymer type Scoring criteria: For ER/NC and Her-2/abdulkadir: All internal (if present) and external controls react appropriately. ER and NC immunostains are scored as Positive (> 10% [...] intensity of 1+ or greater is positive. CONTINUED ON NEXT PAGE ----- ------- Name: Lori Mejia Age/Sex: : 1995 Unit#: [id number] Attend Dr: Zach Zheng MD Re07/19/25 Status: DEP REF Location: .MAMMO Disch: ----- ------- SPEC : [id number] RECD: 07/19/25-155 STATUS: SANTANA WHITTAKER NUM: [id number] DON: 07/19/25-[address]: Camryn Figueroa DO ENTERED: 07/19/25-1555 SP TYPE: Surgical OTHR DR: Harris Hanks MD, John J MD ORDERED: HE Stain/4, Gross Micro L4/2, ER/2, NC/2, IHC/2, Add. immunos/4, IHC ER/NC/Her2N/8, E-cadherin/2, Ki-67/2, p63/2, SMM/2, WSQ6LXQ/2 COMMENTS: Block B, 1 H E, 1 stained slide sent to [facility] for HER2 FISH on 08/02/25. As stated on the specimen requisition: Part A. Time in formalin 1527 Part B time in formalin 1535 Gross Description (Continued) Elroy AC, Jw ME, et al. Human Epidermal Growth Factor Receptor 2 Testing in Breast Cancer: ASCO/CAP Clinical Practice Guideline Focus Update. Arch of Pathol Lab Med, 142, 2018: 5530-2717. Evelin KH, Escalera ME, et al. Estrogen and Progesterone Receptor Testing in Breast Cancer: ASCO/CAP Guideline Update. Arch of Pathol Lab Med, 144 2020: 545-563. Milvia N, Addie P, et al. Adjuvant abemaciclib combined with endocrine therapy for high- risk early breast cancer: updated efficacy and Ki-67 analysis from the [facility] study. Kristel Oncol. 2020;32(12):6948-4805. This case was reviewed intradepartmentally; results were communicated to Drs. Zheng and Carolina on 07/26/2025. Special studies ordered and performed: immunostains for ER, NC, HER2, Ki-67, e-cadherin, p63 and smooth muscle myosin on A and B IHC S/NG Disclaimer NOTE: Unless otherwise stated, all tissue is formalin-fixed and paraffin-embedded. Some or all of the immunohistochemical tests reported herein may have been developed and their performance characteristics determined by [facility]. They have not been cleared or approved by the U.S. Food and Drug Administration (FDA). However, the FDA has determined that such clearance or approval is not necessary. This laboratory is certified under the Clinical Laboratory Improvement Amendments of 1988 (CLIA) as qualified to perform high complexity clinical laboratory testing. Copies To: Harris Hanks MD [address] [address] CONTINUED ON NEXT PAGE ----- ------- Name: Lori Mejia Age/Sex: 29/F : 1995 Unit#: [id number] Attend Dr: Zach Zheng MD Re07/19/25 Status: DEP REF Location: HO.MAMMO Disch: ----- ------- SPEC : [id number] RECD: 07/19/25 STATUS: SANTANA WHITTAKER NUM: [id number] DON: 07/19/25 [facility] [address]: Camryn Figueroa DO ENTERED: 07/19/25 SP TYPE: Surgical OTHR DR: Nadir Garcia,Zach Lopes MD, MD ORDERED: HE Stain/4, Gross Micro L4/2, ER/2, NC/2, IHC/2, Add. immunos/4, IHC ER/NC/Her2N/8, E-cadherin/2, Ki-67/2, p63/2, SMM/2, PZK6ZQA/2 COMMENTS: Block B, 1 H E, 1 stained slide sent to [facility] for HER2 FISH on 08/02/25. As stated on the specimen requisition: Part A. Time in formalin 1527 Part B time in formalin 1535 Copies To: (Continued) Zach Zheng MD [facility] [address] [place] [address] Camryn Figueroa DO [address] [place] [address] ----- ------- Signed (signature on file) Bear Wilson MD 08/02/25 1422 ----- ------- END OF REPORT us Generic External Data Provider LAB BLOOD ORDERAB LES Final Result Performing Organization Address City/State/[facility] Co de Phone Number [facility] [address] [place] [phone] * US BREAST NDL CORE BIOPSY LT (07/19/2025 2:55 PM EDT) Anatomical Region Laterality Modality Abdomen Ultrasound 07/19/2025 2:55 PM EDT Narrative 07/20/2025 12:41 PM EDT [facility] [address] [place] [address] Ultrasound Report Signed with Patyenda Patient: Lori Mejia MR#: [id number] 384 : 1995 Acct:[id number] Age/Sex: 29 / F ADM Date: 07/19/25 Loc: HO.MAMMO Attending Dr: Zach Zheng MD Ordering Physician: Zach Zheng MD Date of Service: 07/19/25 Procedure(s): US breast ndl core biopsy LT Accession Number(s): [id number] cc: Harris Hanks MD; Zach Zheng MD [...] Camryn Figueroa DO 07/20/2025 12:38 PM EDT RP Dictated By: Camryn Figueroa DO Signed By: <Electronically signed by Camryn Figueroa DO in OV> 07/20/25 1238 DD/ 1455 TD/TT: 07/19/25 1545 Senior Staff Psychologist: Procedure Note Donotuseinterpreter, Image - 07/28/2025 [facility] [address] [place] [address] Ultrasound Report Signed with Addenda Patient: Lori Mejia R#: [id number] : 1995Acct:[id number] Age/Sex: Date: 07/19/25 Loc: HO.MAMMO Attending Dr: Zach Zheng MD Ordering Physician: Zach Zheng MD Date of Service: 07/19/25 Procedure(s): US breast ndl core biopsy LT Accession Number(s): [id number] cc: Harris Hanks MD; Zach Zheng MD [...] Camryn Figueroa DO 07/26/2025 01:21 PM EDT RP Addendum Dictated By: Camryn Figueroa DO Addendum [...] Camryn Figueroa DO 07/20/2025 12:38 PM EDT RP Dictated By: Camryn Figueroa DO Signed By: <Electronically signed by Camryn Figueroa DO in OV> 07/20/25 1238 DD/ 1455 TD/TT: 07/19/25 1545 Senior Staff Psychologist: us [facility] External Provider IMG US PROCEDURES Edited Result - Final * BI Mammogram Diagnostic Tomosynthesis Left (07/19/2025 2:42 PM EDT) Anatomical Region Laterality Modality Breast Left Mammography 07/19/2025 2:42 PM EDT Narrative 07/20/2025 12:41 PM EDT [address] [place] [address] Mammography Report Signed with Addenda Patient: Lori Mejia MR#: [id number] 384 : 1995 Acct:[id number] Age/Sex: 29 / F ADM Date: 07/19/25 Loc: EVI Attending Dr: Zach Zheng MD Ordering Physician: Zach Zheng MD Results: Date of Service: 07/19/25 Follow Up: Procedure(s): MM tomosynthesis diagnostic LT Accession Number(s): [id number] cc: Harris Hanks MD; Zach Zheng MD [...] Camryn Figueroa DO 07/26/2025 01:21 PM EDT RP Addendum Dictated By: Camryn Figueroa DO Addendum [...] Camryn Figueroa DO 07/20/2025 12:38 PM EDT RP Dictated By: Camryn Figueroa DO Signed By: <Electronically signed by Camryn Figueroa DO in OV> 07/20/25 1238 DD/ 41 TD/TT: 07/19/251544 Senior Staff Psychologist: Procedure Note Donotuseinterpreter, Image - 07/28/2025 [facility] [address] [place] [address] Mammography Report Signed with Addenda Patient: Lori Mejia JMR#: [id number] : 1995Acct:[id number] Age/Sex: Date: 07/19/25 Loc: HO.MAMMO Attending Dr: Zach Zheng MD Ordering Physician: Zach Zhengults: Date of Service: 07/19/25Follow Up: Procedure(s): MM tomosynthesis diagnostic LT Accession Number(s): [id number] cc: Harris Hanks MD; Zach Zheng MD [...] Camryn Figueroa DO 07/26/2025 01:21 PM EDT RP Addendum Dictated By: Camryn Figueroa DO Addendum [...] OV> 07/20/25 1238 DD/ 1442 TD/TT: 07/19/25 1549 Senior Staff Psychologist: us [facility] External Provider IMG BI PROCEDURES Edited Result - Final * BI MR Breast w and w/o Contrast Bilateral (07/06/2025 3:00 PM EDT) Anatomical Region Laterality Modality Breast Bilateral Magnetic Resonan ce 07/06/2025 3:00 PM EDT Narrative 07/10/2025 9:19 AM EDT [address] [address] Magnetic Resonance Report Signed Patient: Lori Mejia MR#: [id number] 384 : 1995 Acct:[id number] Age/Sex: 29 / F ADM Date: 07/06/25 Loc: HO.MRI Attending Dr: Harris Garcia MD Ordering Physician: Harris Hanks MD Date of Service: 07/06/25 Procedure(s): MR breast BI wo/w con Accession Number(s): [id number] cc: Harris Hanks MD EXAMINATION: MR BREAST [...] 07/10/25 0916 DD/ 1500 TD/TT: 07/06/25 1540 Senior Staff Psychologist: Procedure Note Donotuseinterpreter, Image - 07/10/[address] [address] Magnetic Resonance Report Signed Patient: Lori Mejia JMR#: [id number] : 1995Acct:[id number] Age/Sex: 29 / FADM Date: 07/06/25 Loc: HO.MRI Attending Dr: Harris Garcia MD Ordering Physician: Harris Hanks MD Date of Service: 07/06/25 Procedure(s): MR breast BI wo/w con Accession Number(s): [id number] cc: Harris Hanks MD EXAMINATION: MR BREAST [...] 07/10/25 0916 DD/ 1500 TD/TT: 07/06/25 1540 Senior Staff Psychologist: Harris Garcia MD IMG MRI PROCEDURES Final Result * BI Mammogram Diagnostic Tomosynthesis Bilateral (06/29/2025 11:30 AM EDT) Anatomical Region Laterality Modality Breast Bilateral Mammography 06/29/2025 11:3 0 AM EDT Narrative 06/29/2025 2:33 PM EDT [facility] [address] [place] [address] Mammography Report Signed Patient: Lori Mejia MR#: [id number] 384 : 1995 Acct:[id number] Age/Sex: 29 / F ADM Date: 06/29/25 Loc: HO.MAMMO Attending Dr: Harris Garcia MD Ordering Physician: Harris Hanks MD Res ults: 4Suspicious Finding Date of Service: 06/29/25 Follow Up: Biopsy Recommend ed Procedure(s): MM tomosynthesis diagnostic BI Accession Number(s): [id number] cc: Harris Hanks MD EXAMINATION: MM DIAGNOSTIC [...] 06/29/25 1430 DD/ 1130 TD/TT: 06/29/25 1145 Senior Staff Psychologist: Procedure Note Donotuseinterpreter, Image - 06/29/2025 [place] [facility] [address] [place] [address] Mammography Report Signed Patient: Lori Mejia R#: [id number] : 1995Acct:[id number] Age/Sex: 29 / FADM Date: 06/29/25 Loc: HO.MAMMO Attending Dr: Harris Garcia MD Ordering Physician: Harris Hanks ults: 4Suspicious Finding Date of Service: 06/29/25Follow Up: Biopsy Recommend ed Procedure(s): MM tomosynthesis diagnostic BI Accession Number(s): [id number] cc: Harris Hanks MD EXAMINATION: MM DIAGNOSTIC [...] 06/29/25 1430 DD/ 1130 TD/TT: 06/29/25 1145 Senior Staff Psychologist: us Harris Garcia MD IMG BI PROCEDURES Final Result * BI US Breast Limited Left (06/29/2025 11:12 AM EDT) Anatomical Region Laterality Modality Breast Left Ultrasound 06/29/2025 11:1 2 AM EDT Narrative 06/29/2025 2:33 PM EDT [place] [facility] [address] [place] [address] Ultrasound Report Signed Patient: Lori Mejia MR#: [id number] 384 : 1995 Acct:[id number] Age/Sex: 29 / F ADM Date: 06/29/25 Loc: HO.MAMMO Attending Dr: Harris Garcia MD Ordering Physician: Harris Hanks MD Date of Service: 06/29/25 Procedure(s): US breast LT limited mamm only Accession Number(s): [id number] cc: Harris Hanks MD EXAMINATION: MM DIAGNOSTIC [...] 06/29/25 1430 DD/ 1112 TD/TT: 06/29/25 1130 Senior Staff Psychologist: Procedure Note Donotuseinterpreter, Image - 06/30/2025 [facility] [address] [place] [address] Ultrasound Report Signed Patient: Lori Mejia R#: [id number] : 1995Acct:[id number] Age/Sex: 29 / FADM Date: 06/29/25 Loc: HO.MAMMO Attending Dr: Harris Garcia MD Ordering Physician: Harris Hanks MD Date of Service: 06/29/25 Procedure(s): US breast LT limited mamm only Accession Number(s): [id number] cc: Harris Hanks MD EXAMINATION: MM DIAGNOSTIC [...] 06/29/25 1430 DD/ 1112 TD/TT: 06/29/25 1130 Senior Staff Psychologist: Harris Garcia MD [facility] US PROCEDURES Final Result * HM PAP/HPV (04/09/2022 7:50 AM EDT) Historical Provider HEALTH MAINTENANCE Final Result from Last 3 Months or Most Recently Relevant to Health Maintenance Insurance [facility] , [address] [place] [address] DENTAL - HSN FULL (MEDICAID) Care Teams Software Sales Relationship Specialty Start Date End Date Harris Hanks MD [address] [place] [address] PCP - General Internal Medicine 11/10/24
--- OUTSIDE RECORDS SUMMARY | 2025-08-03 18:23 | XMS_ITS | Encounter Summary ---
Author Organization [employer] Address [address] [facility] 7 [place] [address] Care Team Providers Care Enamel Pulverizer Name Role Phone Harris Hanks MD Primary Care Prov ider Encounter Details Date Type Department Care Team ([facility] st Contact Info) Description 01/06/2025 Orders Only [facility]S [address] [place], [place] [phone] Harris Hanks MD [address] [place] [address] Social History Tobacco Use Types Packs/Day Years [...] Info) Description 08/30/2025 8:30 AM EDT Telemedicine [facility] MED & PED[facility] [address] [place] [address] Harris Hanks MD [address] [place] [address] documented as of this encounter Visit Diagnoses Not on filedocumented in this encounter Additional Health Concerns Assessment Noted Time PHQ-9 Depression Total Score: 4 12/28/19 25 11:24 AM EST documented as of this encounter Care Teams Enamel Pulverizer Relationship Specialty Start Date End Date Harris Hanks MD [address] [place] [address] PCP - General Internal Medicine 11/10/24 documented as of this encounter
--- OUTSIDE RECORDS SUMMARY | 2025-08-03 18:23 | XMS_ITS | Encounter Summary ---
Author Organization [employer] Address [address] [facility] 7t [place] [address] Care Team Providers Care Proof Technician Helper Name Role Phone Harris Hanks MD Primary Care Prov ider Encounter Details Date Type Department Care Team (Late st Contact Info) Description 12/28/2024 Orders Only [facility] [address] [place] [address] Harris Hanks MD [address] [place] [address] Social History Tobacco Use Types Packs/Day Years [...] Info) Description 08/30/2025 8:30 AM EDT Telemedicine [facility] MED & PEDS [address] [place] [address] Harris Hanks MD [address] [place] [address] documented as of this encounter Visit Diagnoses Not on filedocumented in this encounter Additional Health Concerns Assessment Noted Time PHQ-9 Depression Total Score: 4 12/28/19 25 11:24 AM EST documented as of this encounter Care Teams Proof Technician Helper Relationship Specialty Start Date End Date Harris Hanks MD [address] [place] [address] PCP - General Internal Medicine 11/10/24 documented as of this encounter
--- OUTSIDE RECORDS SUMMARY | 2025-08-03 18:23 | XMS_ITS | Encounter Summary ---
Author Organization [employer] Address [address] [facility] [address] [place] [address] Care Team Providers Care Talent Sourcing Specialist Name Role Phone Harris Hanks MD Primary Care Prov ider Encounter Details Date Type Department Care Team (Late st Contact Info) Description 12/27/2024 Orders Only [facility] MED[facility] [address] [place] [address] Provider, MD Gin Social History Tobacco Use [...] Assessment Author Somewhat difficult 12/28/2024 11:24 AM Garrcik Vazquez [place] documented as of this encounter Plan of Treatment Upcoming Encounters Date Type Department Care Team ([facility] st Contact Info) Description 08/30/2025 8:30 AM EDT Telemedicine [facility] PEDS [address] [place] [address] Harris Hanks MD [address] [place] [address] documented as of this encounter Procedures Procedure Name Priority Date/Time Associated Diagnosis Comments HM PAP/HPV Routine 04/09/2022 7:50 AM EDT documented in this encounter Results * HM PAP/HPV (04/09/2022 7:50 AM EDT) Historical Provider HEALTH MAINTENANCE Final Result documented in this encounter Visit Diagnoses Not on filedocumented in this encounter Care Teams Talent Sourcing Specialist Relationship Specialty Start Date End Date Harris Hanks MD [address] [place] [address] PCP - General Internal Medicine 11/10/24 documented as of this encounter
== END ==
LOC: HO.CARD 14:55
PROVIDERS: PCP Internal Medicine; Visit Provider Internal Medicine
DX: C50.912 Malignant neoplasm of unspecified site of left female breast (principal)
CPT/HCPCS: 93306; 93356

== ENCOUNTER → 2025-08-03 15:00 | Outpatient (BNV) | payer OTHER, SELFPAY | PROVIDERS: PCP Internal Medicine; Visit Provider Internal Medicine Cardiovascular Disease | DX: Z01.818 Encounter for other preprocedural examination (principal) | CPT/HCPCS: 93306 ==

== ENCOUNTER 2025-08-14 11:06 | Day surgery (SDC) | payer OTHER, SELFPAY ==
--- OUTSIDE RECORDS SUMMARY | 2025-08-04 15:58 | XMS_ITS | Encounter Summary ---
Author Organization [employer] Address [address] [facility] 7 [place] [address] Care Team Providers Care Nutrition Services Worker Name Role Phone Harris Hanks MD Primary Care Prov ider Encounter Details Date Type Department Care Team ([facility] st Contact Info) Description 01/06/2025 Orders Only [facility] MED & PEDS [address] [place], [place] [phone] Harris Hanks MD [address] [place] [address] Social History Tobacco Use Types Packs/Day Years [...] Info) Description 08/30/2025 8:30 AM EDT Telemedicine [facility] MED & PEDS [address] [place] [address] Harris Hanks MD [address] [place] [address] documented as of this encounter Visit Diagnoses Not on filedocumented in this encounter Additional Health Concerns Assessment Noted Time PHQ-9 Depression Total Score: 4 12/28/19 25 11:24 AM EST documented as of this encounter Care Teams Nutrition Services Worker Relationship Specialty Start Date End Date Harris Hanks MD [address] [place] [address] PCP - General Internal Medicine 11/10/24 documented as of this encounter
--- OUTSIDE RECORDS SUMMARY | 2025-08-04 15:58 | XMS_ITS | Clinical Summary ---
Author Organization [employer] Address [address] [facility] [address] 7[address] [place] [address] Care Team Providers Care Residential Youth Counselor Name Role Phone Harris Hanks MD Primary [...] Description 07/27/2025 3:45 PM EDT Office Visit [facility] MED & PEDS [address] [place] [address] Va Negron MD Intraductal carcinoma of left breast (Primary Dx) 07/27/2025 Travel 07/27/2025 Telephone [facility] MED & PEDS [address] [place] [address] Va Negron MD Results 07/19/2025 Orders Only [facility] External Provider, [facility] 07/17/2025 Telephone [facility] MEDICINE [address] [place] [address] Harris Hanks MD 06/30/2025 Orders Only [facility] MED & PEDS [address] [place] [address] Harris Hanks MD Mass of lower outer quadrant of left breast (Primary Dx) 06/29/2025 Orders Only [facility] MED & [facility]EDS [address] [place] [address] Harris Hanks MD Mass of lower outer quadrant of left breast (Primary Dx) 06/09/2025 Telephone [facility] MED & PEDS [address] [place] [address] Harris Hanks MD US BREAST APPT 06/07/2025 2:20 PM EDT Office Visit [facility] MED & PEDS [address] [place] [address] Harris Hanks MD Mass of lower outer quadrant of left breast (Primary Dx) 06/07/2025 Travel 06/06/2025 Telephone [facility] MED & PEDS [address] [place] [address] Harris Hanks MD 05/30/2025 8:30 AM EDT Office Visit [facility] MED & [facility]EDS [address] [place] [address] Harris Hanks MD Severe anxiety (Primary Dx) 05/30/2025 Travel 05/25/2025 2:00 PM EDT Office Visit [facility] ADULT DENTAL [address] [place] [address] Yazmin Espinosa 05/08/2025 9:20 AM EDT Office Visit [facility] MED & PEDS [address] [place] [address] Dayo Truong MD Irritant contact dermatitis due [...] Upcoming Encounters Date Type Department Care Team ([facility] st Contact Info) Description 08/30/2025 8:30 AM EDT Telemedicine [facility] MED & PEDS [address] [place] [address] Harris Hanks MD [address] [place] [address] Health Maintenance Due Date Last Done Comments [...] caries associated with failed or defective dental protestant Dental caries PERIODIC ORAL EVALUATION - ESTABLISHED [...] PM EDT Narrative 07/20/2025 12:41 PM EDT [facility] [address] [place] [address] Ultrasound Report Signed with Lalitha Patient: Lori Mejia MR#: [id number] 384 : 1995 Acct:[id number] Age/Sex: 29 / F ADM Date: 07/19/25 Loc: NIKA.MAMMMarilin Attending Dr: Zach Zheng MD Ordering Physician: Zach Zheng MD Date of Service: 07/19/25 Procedure(s): US breast ndl core bio ea add Accession Number(s): [id number] cc: Harris Hanks MD; Zach Zheng MD [...] 07/20/25 1238 DD/ 1520 TD/TT: 07/19/25 1533 Embroidery Patternmaker: Procedure Note Donotuseinterpreter, Image - 07/28/2025 [facility] [address] [place], [place] [address] Ultrasound Report Signed with Addenda Patient: Lori Mejia JMR#: [id number] 384 : 1995Acct:[id number] Age/Sex: Date: 07/19/25 Loc: HO.MAMMO Attending Dr: Zach Zheng MD Ordering Physician: Zach Zheng MD Date of Service: 07/19/25 Procedure(s): US breast ndl core bio ea add Accession Number(s): [id number] cc: Harris Hanks MD; Zach Zheng MD [...] 07/20/25 1238 DD/ 1520 TD/TT: 07/19/25 1533 Embroidery Patternmaker: [facility] External Provider IMG US PROCEDURES Edited Result - Final * Hematoxylin and Eosin Stain (07/19/2025 3:17 PM EDT) 07/19/2025 3:17 PM EDT 07/19/2025 3:51 PM EDT [facility] - 08/02/2025 2:22 PM EDT ----- ------- Name: RobertoLori Galvin Age/Sex: 29/F : 1995 Unit#: [id number] Attend Dr: Zach Zheng MD Re07/19/25 Status: DEP REF Location: HO.MAMMO Disch: ----- ------- SPEC : [id number] RECD: 07/19/25 STATUS: SANTANA WHITTAKER NUM: [id number] DON: 07/19/25 [facility] DR: Camryn Figueroa DO ENTERED: 07/19/25 SP TYPE: Surgical OTHR DR: Harris Hanks MD, John J MD ORDERED: HE Stain/4, Gross Micro L4/2, ER/2, ME/2, IHC/2, Add. immunos/4, IHC ER/ME/Her2N/8, E-cadherin/2, Ki-67/2, p63/2, SMM/2, SYQ4WFX/2 COMMENTS: Block B, 1 H E, 1 [...] Lori Mejia Age/Sex: /F : 1995 Unit#: [id number] Attend Dr: Zach Zheng MD Re07/19/25 Status: DEP [facility] ----- ------- SPEC : [id number] RECD: 07/19/25 STATUS: SANTANA WHITTAKER NUM: [id number] DON: 07/19/25 [facility] DR: Camryn Figueroa DO ENTERED: 07/19/25 SP TYPE: Surgical OTHR DR: Nadir Garcia,Harris Zheng,Zach Galvin MD ORDERED: HE Stain/4, Gross Micro L4/2, ER/2, ME/2, IHC/2, Add. immunos/4, IHC ER/ME/Her2N/8, E-cadherin/2, Ki-67/2, p63/2, SMM/2, LAB9REE/2 COMMENTS: Block B, 1 H E, 1 stained slide sent to [facility] for HER2 FISH on 08/02/25. As stated [...] Lori Mejia Age/Sex: 29/F : 1995 Unit#: [id number] Attend Dr: Zach Zheng MD Re07/19/25 Status: DEP REF Location: HO.MAMMO Disch: ----- ------- SPEC : [id number] RECD: 07/19/25 STATUS: SANTANA WHITTAKER NUM: [id number] DON: 07/19/25-1516 [facility] DR: Camryn Figueroa DO ENTERED: 07/19/25-1554 SP TYPE: Surgical OTHR DR: Harris Hanks MD, John J MD ORDERED: HE Stain/4, Gross Micro L4/2, ER/2, ME/2, IHC/2, Add. immunos/4, IHC ER/ME/Her2N/8, E-cadherin/2, Ki-67/2, p63/2, SMM/2, ZOU3SFL/2 COMMENTS: Block B, 1 H E, 1 stained slide sent to [facility] for HER2 FISH on 08/02/25. As stated [...] Envision+ Dual Link System-HRP. Progesterone receptor: Clone [id number]; Trackway Mach 4 detection system. Her-2/abdulkadir immunohistochemistry performed in accordance with ASCO/CAP recommendations (2007) and update (2013). Hercep Test Detection system: Polymer type Scoring criteria: For ER/ME and Her-2/abdulkadir: All internal (if present) and external controls react appropriately. ER and ME immunostains are scored as Positive (> 10% [...] Name: Lori Mejia Age/Sex: : 1995 Unit#: [id number] Attend Dr: Zach Zheng MD Re07/19/25 Status: DEP REF Location: .MAMMO Disch: ----- ------- SPEC : [id number] RECD: 07/19/25-155 STATUS: SANTANA WHITTAKER NUM: [id number] DON: 07/19/25-[address]: Camryn Figueroa DO ENTERED: 07/19/25-1555 SP TYPE: Surgical OTHR DR: Harris Hanks MD, John J MD ORDERED: HE Stain/4, Gross Micro L4/2, ER/2, ME/2, IHC/2, Add. immunos/4, IHC ER/ME/Her2N/8, E-cadherin/2, Ki-67/2, p63/2, SMM/2, ZLV2CCQ/2 COMMENTS: Block B, 1 H E, 1 [...] Arch of Pathol Lab Med, 142, 2018: 1690-6124. Evelin KH, Escalera ME, et al. Estrogen and Progesterone Receptor Testing in Breast Cancer: ASCO/CAP Guideline Update. Arch of Pathol Lab Med, 144 2020: 545-563. Milvia N, Addie P, et al. Adjuvant abemaciclib combined with endocrine therapy for high- risk early breast cancer: updated efficacy and Ki-67 analysis from the [facility] study. Kristel Oncol. 2020;32(12):4779-4615. This case was reviewed intradepartmentally; results were communicated to Drs. Zheng and Carolina on 07/26/2025. Special studies ordered and performed: immunostains for ER, ME, HER2, Ki-67, e-cadherin, p63 and smooth muscle myosin on A and B IHC S/NG Disclaimer NOTE: Unless otherwise stated, all tissue is formalin-fixed and paraffin-embedded. Some or all of the immunohistochemical tests reported herein may have been developed and their performance characteristics determined by [facility]. They have not been cleared or approved by the U.S. Food and Drug Administration (FDA). However, the FDA has determined that such clearance or approval is not necessary. This laboratory is certified under the Clinical Laboratory Improvement Amendments of 1988 (CLIA) as qualified to perform high complexity clinical laboratory testing. Copies To: Harris Hanks MD [address] [address] CONTINUED ON NEXT PAGE ----- ------- Name: Lori Mejia Age/Sex: 29/F : 1995 Unit#: [id number] Attend Dr: Zach Zheng MD Re07/19/25 Status: DEP REF Location: HO.MAMMO Disch: ----- ------- SPEC : [id number] RECD: 07/19/25 STATUS: SANTANA WHITTAKER NUM: [id number] DON: 07/19/25 [facility] DR: Camryn Figueroa DO ENTERED: 07/19/25 SP TYPE: Surgical OTHR DR: Nadir Garcia,Zach Lopes MD, MD ORDERED: HE Stain/4, Gross Micro L4/2, ER/2, ME/2, IHC/2, Add. immunos/4, IHC ER/ME/Her2N/8, E-cadherin/2, Ki-67/2, p63/2, SMM/2, AFI5UWI/2 COMMENTS: Block B, 1 H E, 1 stained slide sent to [facility] for HER2 FISH on 08/02/25. As stated on the specimen requisition: Part A. Time in formalin 1527 Part B time in formalin 1535 Copies To: (Continued) Zach Zheng MD [facility] [address] [place] [id number] Camryn Figueroa DO [address] [place] [phone] ----- ------- Signed (signature on file) Bear Wilson MD 08/02/25 1422 ----- ------- END OF REPORT us Generic External Data Provider LAB BLOOD ORDERAB LES Final Result Performing Organization Address City/State/[facility] Co de Phone Number [facility] [address] [place] [phone] * US BREAST NDL CORE BIOPSY LT (07/19/2025 2:55 PM EDT) Anatomical Region Laterality Modality Abdomen Ultrasound 07/19/2025 2:55 PM EDT Narrative 07/20/2025 12:41 PM EDT [facility] [address] [place] [address] Ultrasound Report Signed with Patyenda Patient: Lori Mejia MR#: [id number] 384 : 1995 Acct:[id number] Age/Sex: 29 / F ADM Date: 07/19/25 Loc: HO.MAMMO Attending Dr: Zach Zheng MD Ordering Physician: Zach Zheng MD Date of Service: 07/19/25 Procedure(s): US breast ndl core biopsy LT Accession Number(s): [id number] cc: Harris Hanks MD; Zach Zheng MD [...] 07/20/25 1238 DD/ 1455 TD/TT: 07/19/25 1545 Embroidery Patternmaker: Procedure Note Donotuseinterpreter, Image - 07/28/2025 [facility] [address] [place] [address] Ultrasound Report Signed with Addenda Patient: Lori Mejia R#: [id number] 384 : 1995Acct:[id number] Age/Sex: Date: 07/19/25 Loc: HO.MAMMO Attending Dr: aZch Zheng MD Ordering Physician: Zach Zheng MD Date of Service: 07/19/25 Procedure(s): US breast ndl core biopsy LT Accession Number(s): [id number] cc: Harris Hanks MD; Zach Zheng MD [...] 07/20/25 1238 DD/ 1455 TD/TT: 07/19/25 1545 Embroidery Patternmaker: us [facility] External Provider IMG US PROCEDURES Edited Result - Final * BI Mammogram Diagnostic Tomosynthesis Left (07/19/2025 2:42 PM EDT) Anatomical Region Laterality Modality Breast Left Mammography 07/19/2025 2:42 PM EDT Narrative 07/20/2025 12:41 PM EDT [address] [place] [address] Mammography Report Signed with Addenda Patient: Lori Mejia MR#: [id number] 384 : 1995 Acct:[id number] Age/Sex: 29 / F ADM Date: 07/19/25 Loc: EVI Attending Dr: Zach Zheng MD Ordering Physician: Zach Zheng MD Results: Date of Service: 07/19/25 Follow Up: Procedure(s): MM tomosynthesis diagnostic LT Accession Number(s): [id number] cc: Harris Hanks MD; Zach Zheng MD [...] OV> 07/20/25 1238 DD/ 41 TD/TT: 07/19/251544 Embroidery Patternmaker: Procedure Note Donotuseinterpreter, Image - 07/28/2025 [facility] [address] [place] [address] Mammography Report Signed with Addenda Patient: Lori Mejia JMR#: [id number] 384 : 1995Acct:[id number] Age/Sex: Date: 07/19/25 Loc: HO.MAMMO Attending Dr: Zach Zheng MD Ordering Physician: Zach Zhengults: Date of Service: 07/19/25Follow Up: Procedure(s): MM tomosynthesis diagnostic LT Accession Number(s): [id number] cc: Harris Hanks MD; Zach Zheng MD [...] OV> 07/20/25 1238 DD/ 1442 TD/TT: 07/19/25 1548 Embroidery Patternmaker: us [facility] External Provider IMG BI PROCEDURES Edited Result - Final * BI MR Breast w and w/o Contrast Bilateral (07/06/2025 3:00 PM EDT) Anatomical Region Laterality Modality Breast Bilateral Magnetic Resonan ce 07/06/2025 3:00 PM EDT Narrative 07/10/2025 9:19 AM EDT [address] [address] Magnetic Resonance Report Signed Patient: Lori Mejia MR#: [id number] 384 : 1995 Acct:[id number] Age/Sex: 29 / F ADM Date: 07/06/25 Loc: HO.MRI Attending Dr: Harris Garcia MD Ordering Physician: Harris Hanks MD Date of Service: 07/06/25 Procedure(s): MR breast BI wo/w con Accession Number(s): [id number] cc: Harris Hanks MD EXAMINATION: MR BREAST [...] 07/10/25 0916 DD/ 1500 TD/TT: 07/06/25 1540 Embroidery Patternmaker: Procedure Note Donotuseinterpreter, Image - 07/10/[address] [address] Magnetic Resonance Report Signed Patient: Lori Mejia JMR#: [id number] 384 : 1995Acct:[id number] Age/Sex: 29 / FADM Date: 07/06/25 Loc: HO.MRI Attending Dr: Harris Garcia MD Ordering Physician: Harris Hanks MD Date of Service: 07/06/25 Procedure(s): MR breast BI wo/w con Accession Number(s): [id number] cc: Harris Hanks MD EXAMINATION: MR BREAST [...] 07/10/25 0916 DD/ 1500 TD/TT: 07/06/25 1540 Embroidery Patternmaker: Harris Garcia MD IMG MRI PROCEDURES Final Result * BI Mammogram Diagnostic Tomosynthesis Bilateral (06/29/2025 11:30 AM EDT) Anatomical Region Laterality Modality Breast Bilateral Mammography 06/29/2025 11:3 0 AM EDT Narrative 06/29/2025 2:33 PM EDT [facility] [address] [place] [address] Mammography Report Signed Patient: Lori Mejia MR#: [id number] 384 : 1995 Acct:[id number] Age/Sex: 29 / F ADM Date: 06/29/25 Loc: HO.MAMMO Attending Dr: Harris Garcia MD Ordering Physician: Harris Hanks MD Res ults: 4Suspicious Finding Date of Service: 06/29/25 Follow Up: Biopsy Recommend ed Procedure(s): MM tomosynthesis diagnostic BI Accession Number(s): [id number] cc: Harris Hanks MD EXAMINATION: MM DIAGNOSTIC [...] 06/29/25 1430 DD/ 1130 TD/TT: 06/29/25 1145 Embroidery Patternmaker: Procedure Note Donotuseinterpreter, Image - 06/29/2025 [place] [facility] [address] [place] [address] Mammography Report Signed Patient: Lori Mejia R#: [id number] 384 : 1995Acct:[id number] Age/Sex: 29 / FADM Date: 06/29/25 Loc: HO.MAMMO Attending Dr: Harris Garcia MD Ordering Physician: Harris Hanks ults: 4Suspicious Finding Date of Service: 06/29/25Follow Up: Biopsy Recommend ed Procedure(s): MM tomosynthesis diagnostic BI Accession Number(s): [id number] cc: Harris Hanks MD EXAMINATION: MM DIAGNOSTIC [...] 06/29/25 1430 DD/ 1130 TD/TT: 06/29/25 1145 Embroidery Patternmaker: us Harris Garcia MD IMG BI PROCEDURES Final Result * BI US Breast Limited Left (06/29/2025 11:12 AM EDT) Anatomical Region Laterality Modality Breast Left Ultrasound 06/29/2025 11:1 2 AM EDT Narrative 06/29/2025 2:33 PM EDT [place] [facility] [address] [place] [address] Ultrasound Report Signed Patient: Lori Mejia MR#: [id number] 384 : 1995 Acct:[id number] Age/Sex: 29 / F ADM Date: 06/29/25 Loc: HO.MAMMO Attending Dr: Harris Garcia MD Ordering Physician: Harris Hanks MD Date of Service: 06/29/25 Procedure(s): US breast LT limited mamm only Accession Number(s): [id number] cc: Harris Hanks MD EXAMINATION: MM DIAGNOSTIC [...] 06/29/25 1430 DD/ 1112 TD/TT: 06/29/25 1130 Embroidery Patternmaker: Procedure Note Donotuseinterpreter, Image - 06/30/2025 [facility] [address] [place] [address] Ultrasound Report Signed Patient: Lori Mejia R#: [id number] : 1995Acct:[id number] Age/Sex: 29 / FADM Date: 06/29/25 Loc: HO.MAMMO Attending Dr: Harris Garcia MD Ordering Physician: Harris Hanks MD Date of Service: 06/29/25 Procedure(s): US breast LT limited mamm only Accession Number(s): [id number] cc: Harris Hanks MD EXAMINATION: MM DIAGNOSTIC [...] 06/29/25 1430 DD/ 1112 TD/TT: 06/29/25 1130 Embroidery Patternmaker: Harris Garcia MD [facility] US PROCEDURES Final Result * HM PAP/HPV (04/09/2022 7:50 AM EDT) Historical Provider HEALTH MAINTENANCE Final Result from Last 3 Months or Most Recently Relevant to Health Maintenance Insurance [facility] [address] [place] [address] DENTAL - HSN FULL (MEDICAID) Care Teams Residential Youth Counselor Relationship Specialty Start Date End Date Harris Hanks MD [address] [place] [address] PCP - General Internal Medicine 11/10/24
--- OUTSIDE RECORDS SUMMARY | 2025-08-04 15:58 | XMS_ITS | Encounter Summary ---
Author Organization [employer] Address [address] [facility] 7t [place] [address] Care Team Providers Care Shredded Filler Machine Wrapper Layer Name Role Phone Harris Hanks MD Primary Care Prov ider Encounter Details Date Type Department Care Team (Late st Contact Info) Description 12/28/2024 Orders Only [facility] [address] [place] [address] Harris Hanks MD [address] [place] [address] Social History Tobacco Use Types Packs/Day Years [...] Description 08/30/2025 8:30 AM EDT Telemedicine [facility] PED[facility] [address] [place] [address] Harris Hanks MD [address] [place] [address] documented as of this encounter Visit Diagnoses Not on filedocumented in this encounter Additional Health Concerns Assessment Noted Time PHQ-9 Depression Total Score: 4 12/28/19 25 11:24 AM EST documented as of this encounter Care Teams Shredded Filler Machine Wrapper Layer Relationship Specialty Start Date End Date Harris Hanks MD [address] [place] [address] PCP - General Internal Medicine 11/10/24 documented as of this encounter
--- OUTSIDE RECORDS SUMMARY | 2025-08-04 15:58 | XMS_ITS | Encounter Summary ---
Author Organization [employer] Address [address] [facility] [address] [place] [address] Care Team Providers Care Protective Signal Repairer Name Role Phone Harris Hanks MD Primary Care Prov ider Encounter Details Date Type Department Care Team (Late st Contact Info) Description 12/27/2024 Orders Only [facility] [address] [place] [address] Provider, MD Gin Social History Tobacco Use [...] Upcoming Encounters Date Type Department Care Team ([facility] st Contact Info) Description 08/30/2025 8:30 AM EDT Telemedicine [facility] MED & PEDS [address] [place] [address] Harris Hanks MD [address] [place] [address] documented as of this encounter Procedures Procedure Name Priority Date/Time Associated Diagnosis Comments HM PAP/HPV Routine 04/09/2022 7:50 AM EDT documented in this encounter Results * HM PAP/HPV (04/09/2022 7:50 AM EDT) Historical Provider HEALTH MAINTENANCE Final Result documented in this encounter Visit Diagnoses Not on filedocumented in this encounter Care Teams Protective Signal Repairer Relationship Specialty Start Date End Date Harris Hanks MD [address] [place] [address] PCP - General Internal Medicine 11/10/24 documented as of this encounter
[2025-08-14] VITALS (18 sets, daily range): BP systolic 109–136; BP diastolic 55–88; PULSE 58–94; RESP 13–22; TEMP 36.3–36.8; O2SAT 99–100; BMI 30.5
--- NOTE | ~2025-08-14 | IR_ITS ---
PROCEDURE: IR INSERTION OF TUNNEL CATHETER under ultrasound and fluoroscopy. CLINICAL INFORMATION: Breast cancer and needs chemotherapy. COMPARISON: None available. TECHNIQUE: Only explaining ultrasound and fluoroscopy-guided placement of a right PORT catheter procedure, benefits and risk, a written consent was obtained. Patient was placed supine on fluoroscopy table and pulmonary ultrasound imaging was obtained the right neck. An optimal site was selected and marked on the skin. The marked site was cleaned and draped in usual sterile manner. 1% lidocaine was injected puncture site. A singlewall needle was advanced under sterile ultrasound guidance and right jugular vein above the right clavicle was punctured. After observing venous return a thin guidewire was advanced through the needle and placed in SVC and needle withdrawn. A 5 Swazi dilator was then advanced over the guidewire and both the catheter and the guidewire anchored to the drape with hemostat. Approximately 1 gauze length from the right neck incision along the right anterior chest wall one percent lidocaine was injected. A small skin incision was performed and blunt dissection was carried out to sedation the Port-A-Cath chamber. Length 1% lidocaine was inserted deep within the soft tissues from the right anterior chest wall to the neck incision. The neck incision was widened slightly. A blunt tunneler attached to the Port-A-Cath was bluntly dissected from the right anterior chest wall incision to the neck incision and the entire catheter was pulled out. The cuff of the catheter lies inside the skin but close to the anterior chest wall incision. The catheter was flushed with saline to evaluate patency. At the neck incision the thin guidewire was removed and a 0.035 J-wire was placed through the 5 Swazi dilator into the IVC under fluoroscopy guidance. The tract was dilated with a 5 6 Swazi dilator. 7 Swazi dilator sheath was introduced over the guidewire. The guidewire and the dilator were removed and the Port-A-Cath was sized. The portacatheter was then inserted through the peel-away sheath under fluoroscopy. As the catheter was inserted the peel-away sheath was gently removed. And a single image was obtained documenting the Port-A-Cath and the tip of the catheter in SVC. 3 0 absorbable subcutaneous sutures followed by skin sutures were placed at the port incision. Nonabsorbable sutures also placed along the right neck incision. Both incisions were covered by Dermabond and simple dressing. All elements of maximal sterile barrier technique followed including use of cap, mask, sterile gown, sterile gloves, a sterile full body drape and hand hygiene. Also followed skin preparation with 2% chlorhexidine for cutaneous antisepsis, and sterile ultrasound preparation with sterile gel and probe cover when applicable. Conscious sedation ( 46 minutes) was utilized during the exam and patient monitored by IR nurse and IR physician. FINDINGS: On preliminary ultrasound imaging there is widely patent right jugular vein. Approximately 25 cm long 6.6 Swazi port catheter was inserted under fluoroscopy and ultrasound. The tip of the catheter lies in mid SVC. The catheter was flushed with heparinized saline. The catheter can be used 1 week from the time of insertion. IR/IR cvc insert tunnel w prt/penology professor IMPRESSION: Successful ultrasound and fluoroscopy-guided placement of a 6.6 Swazi 25 cm long PORT catheter. The catheter can be used in 1 week's time. Electronically signed by: Javed Turner MD 08/17/2025 01:39 PM EDT
[2025-08-14 11:21] LABS: UPreg QC Valid YES
[2025-08-14 11:44] LABS: INTERNATIONAL NORM RATIO 1.0 (0.9-1.1); Prothrombin Time 11.1 SEC (10.9-12.4)
== END 2025-08-14 16:50 | disposition home or self-care (01) ==
PROVIDERS: Radiology Diagnostic Radiology; PCP Internal Medicine; Visit Provider Internal Medicine
DX: Z45.2 Encounter for adjustment and management of vascular access device (principal); C50.812 Malignant neoplasm of overlapping sites of left female breast; Z17.0 Estrogen receptor positive status [ER+]; Z17.21 Progesterone receptor positive status; Z17.31 Human epidermal growth factor receptor 2 positive status; N64.4 Mastodynia; Z91.013 Allergy to seafood
CPT/HCPCS: 36415; 36561; 76937; 81025; 85610; 99152; 99153; C1769; C1788; J0690; J1644; J2003; J2250; J3010

== ENCOUNTER → 2025-08-14 13:12 | Outpatient (BNV) | payer OTHER, SELFPAY | PROVIDERS: PCP Internal Medicine; Visit Provider Radiology Diagnostic Radiology | DX: C50.912 Malignant neoplasm of unspecified site of left female breast (principal) | CPT/HCPCS: 36561; 76937; 77001; 99152 ==

== ENCOUNTER 2025-08-27 10:28 | Emergency (ER) | payer OTHER, SELFPAY ==
--- NOTE | 2025-08-27 | ECG_ITS ---
Test Reason : dizziness Blood Pressure : */* mmHG Vent. Rate : 84 BPM Atrial Rate : 84 BPM P-R Int : 128 ms QRS Dur : 86 ms QT Int : 358 ms P-R-T Axes : 45 42 0 degrees QTcB Int : 423 ms Normal sinus rhythm Normal ECG When compared with ECG of 17-Oct-2016 07:07, No significant change was found Referred By: Generic ED Physician Electronically Signed By: BOB VELIZ MD
--- NOTE | ~2025-08-27 | CT_ITS ---
CLINICAL HISTORY: dizziness, numbness tingling of face --- Additional Notes or Special Instructions: currently on chemotherapy for breast cancer CT head without contrast Comparison: None available Findings: No acute hemorrhage. No extra-axial fluid collection. No hydrocephalus, mass-effect or herniation. Guillen-white differentiation is maintained. White matter is within normal limits for age. No acute orbital pathology. No acute soft tissue abnormality. No fracture. The visualized paranasal sinuses are predominantly clear. The mastoid air cells are clear. Impression: No acute findings. This document has been electronically signed by: Asmita Alamo MD on 08/27/2025 15:01:36
[2025-08-27 10:29] VITALS: BP 127/62; PULSE 83; RESP 18; TEMP 36.7; O2SAT 100; BMI 30.3
[2025-08-27 10:54] VITALS: BP 118/68; PULSE 69; RESP 20; TEMP 37; O2SAT 99
[2025-08-27 11:05] LABS: Anion Gap 12 (12-20); Blood Urea Nitrogen 9 mg/dL (9-16); Calcium 9.4 mg/dL (8.4-10.2); Carbon Dioxide 25 mmol/L (22-29); Chloride 105 mmol/L (96-108); Creatinine Clr Calc Pharmacy 154.7; Estimated Glomerular Filt Rate > 60; Potassium 3.8 mmol/L (3.3-5.1); Sodium 138 mmol/L (135-145)
[2025-08-27 11:07] LABS: Hematocrit 36.7 % (37.0-47.0); Hemoglobin 12.4 g/dl (12.0-16.0); Mean Corpuscular HGB Conc 33.8 g/dl (31.0-35.0); Mean Corpuscular Hemoglobin 29.7 pg (27.0-33.0); Mean Corpuscular Volume 88.0 fL (80.0-98.0); NRBC Abs Auto 0.000 X10*3/uL (0.0-0.012); NRBC Pct Auto 0.0 /100WBC (0.0-0.2); Platelet Count 226 X10*3/uL (160-400); Red Blood Count 4.17 X10*6/uL (4.20-5.50); White Blood Count 6.9 X10*3/uL (4.8-10.8)
--- OUTSIDE RECORDS SUMMARY | 2025-08-27 11:14 | XMS_ITS | Encounter Summary ---
Author Organization [employer] Address [address] [facility] [address] [place] [address] Care Team Providers Care Stapler Machine Name Role Phone Harris Hanks MD Primary Care Prov ider Encounter Details Date Type Department Care Team (Late st Contact Info) Description 12/28/2024 Orders Only [facility] MEDICINE [address] [place] [address] Harris Hanks MD [address] [place] [address] Social History Tobacco Use Types Packs/Day Years [...] [facility] MED & PEDS [address] [place] [address] Harris Hanks MD [address] [place] [address] documented as of this encounter Visit Diagnoses Not on filedocumented in this encounter Additional Health Concerns Assessment Noted Time PHQ-9 Depression Total Score: 4 12/28/19 25 11:24 AM EST documented as of this encounter Care Teams Stapler Machine Relationship Specialty Start Date End Date Harris Hnaks MD [address] [place] [address] PCP - General Internal Medicine 11/10/24 documented as of this encounter
--- OUTSIDE RECORDS SUMMARY | 2025-08-27 11:14 | XMS_ITS | Encounter Summary ---
Author Organization [employer] Address [address] [place] [address] Care Team Providers Care Field Sales Trainer Name Role Phone Harris Hanks MD Primary Care Prov ider Encounter Details Date Type Department Care Team (Late st Contact Info) Description 12/27/2024 Orders Only [facility] MEDICINE [address] [place] [address] Provider, MD Gin Social History Tobacco Use [...] Encounters Date Type Department Care Team ([facility] st Contact Info) Description 08/30/2025 8:30 AM EDT Telemedicine [facility] MED & PEDS [address] [place] [address] Harris Hanks MD [address] [place] [address] documented as of this encounter Procedures Procedure Name Priority Date/Time Associated Diagnosis Comments HM PAP/HPV Routine 04/09/2022 7:50 AM EDT documented in this encounter Results * HM PAP/HPV (04/09/2022 7:50 AM EDT) Historical Provider HEALTH MAINTENANCE Final Result documented in this encounter Visit Diagnoses Not on filedocumented in this encounter Care Teams Field Sales Trainer Relationship Specialty Start Date End Date Harris Hanks MD [address] [place] [address] PCP - General Internal Medicine 11/10/24 documented as of this encounter
--- OUTSIDE RECORDS SUMMARY | 2025-08-27 11:14 | XMS_ITS | Encounter Summary ---
Author Organization [employer] Address [address] [place] [address] Care Team Providers Care Helicopter Pilot Name Role Phone Harris Hanks MD Primary Care Prov ider Encounter Details Date Type Department Care Team (Late st Contact Info) Description 08/27/2025 Orders Only GENER[facility] EXTERNAL DATA DEPARTMENT Provider, Generic External Data Social History Tobacco Use Types Packs/Day Years [...] Upcoming Encounters Date Type Department Care Team ([facility] st Contact Info) Description 08/30/2025 8:30 AM EDT Telemedicine [facility] MED & PEDS [address] [place], [place] [phone] Harris Hanks MD [address] [place], [place] [phone] documented as of this encounter Procedures Procedure Name Priority Date/Time Associated Diagnosis Comments BASIC METABOLIC PANEL Routine 08/27/2025 10:44 AM EDT documented in this encounter Results * Basic Metabolic Panel (08/27/2025 10:44 AM EDT) Sodium 138 135 - 145 mmol/L [facility] Potassium 3.8 3.3 - 5.1 mmol/L [facility] Chloride 105 96 - 108 mmol/L [facility] Carbon Dioxide 25 22 - 29 mmol/L [facility] Anion Gap 12 12 - 20 [facility] Urea Nitrogen (BUN) 9 9 - 16 mg/dL [facility] Creatinine, Serum 0.58 0.5 - 1.4 mg/dL [facility] Creatinine Clr Calc Pharmacy 154.7 [facility] Comment:Provided height and weight: 165.1 cm,82.7 kg.eGFR (calculated from the MDRD study equation) and eCrCl(calculated from the Cockcroft-Gault equation) are based ondifferent parameters and may not yield comparable results.If eCrCl result is absurd, please check patient'sheight/weight. Estimated Glomerular Filt Rate >60 [facility] Comment:Chronic Kidney Disea se: Estimated GFR < 60 mL/min/1.44q1Yphjsd Kidney Disease: Estimated GFR < 15 mL/min/1.73m2 Glucose 99 60 - 115 mg/dL [facility] Calcium 9.4 8.4 - 10.2 mg/dL [facility] 08/27/2025 10:4 4 AM EDT 08/27/2025 10:50 AM EDT us Generic External Data Provider LAB BLOOD ORDERAB LES Final Result [facility] [address] [place] [address] [phone] documented in this encounter Visit Diagnoses Not on filedocumented in this encounter Additional Health Concerns Assessment Noted Time PHQ-9 Depression Total Score: 20 025 10:36 AM EDT documented as of this encounter Care Teams Helicopter Pilot Relationship Specialty Start Date End Date Harris Hanks MD [address] [place] [address] PCP - General Internal Medicine 11/10/24 documented as of this encounter
--- OUTSIDE RECORDS SUMMARY | 2025-08-27 11:14 | XMS_ITS | Data Portability ---
Author Organization [facility] Address [address] [place] [address] Assessment Encounter Date Assessment Date Assessment LastModified by Organization Details LastModified Time 02/08/2024 02/08/2024 A: Pt completed all ther ex's without progressing pain but required vc for proper form. Responded well to manual therapy without increased pain symptoms. P: Continue Poc [email or web address] Not available 02/08/2024 18:39:02 02/15/2024 02/15/2024 A: Secondary to patient unable to kneel on her left knee, she was unable to perform exercises in a quadruped position. Responding well to manual therapy. P: Continue Poc [email or web address] Not available 02/15/2024 18:36:00 02/22/2024 02/22/2024 A: At this time the patient isn't experiencing any LBP. She was able to complete the program with proper form. Per the patients request, she will continue with an independent hep. P: Pt d/c to independent hep [email or web address] Not available 02/22/2024 18:18:11 Plan of Treatment Reminders Order Date Submit Date Provider Last Modified By Organization Details Last Modified Time Details Appointments None record ed. Lab None record ed. Referral None record ed. Procedures None record ed. Surgeries None record ed. Imaging None record ed. Medication Orders None record ed. Patient TargetsNo targets recorded. Patient InstructionsNo instructions recorded. Reason for Referral None Reported. Procedures Surgical History Date Name Laterality Status Provider Name and Address Organization Details Recorded Time 4 [id number] Therapeutic Exercise (1:1) completed Yesenia Blunt PTA [address], [place], [address], [facility] 02/22/2024 18:07:13 4 95417: Manual therapy completed Yesenia Blunt, SALES SUPPORT ADMINISTRATOR [address], [place], [address], [facility] 02/19/2024 13:20:04 4 79746 Therapeutic Exercise (1:1) completed Yesenia Blunt, SALES SUPPORT ADMINISTRATOR [address], [place], [address], [facility] 02/15/2024 18:36:41 4 91907: Manual therapy completed Yesenia Blunt, SALES SUPPORT ADMINISTRATOR [address], [place], [address], [facility] 02/12/2024 14:54:34 4 77998 Therapeutic Exercise (1:1) completed Yesenia Blunt, SALES SUPPORT ADMINISTRATOR [address], [place], [address], [facility] 02/08/2024 18:32:40 4 08738: Manual therapy completed Yesenia Blunt, SALES SUPPORT ADMINISTRATOR [address], [place], [address], [facility] 02/08/2024 18:32:33 Imaging Results None recorded. Procedure Notes None recorded. Medical Equipment None Reported. Vitals None Recorded Social History None recorded. Functional Status None recorded. Mental Status None recorded. Family History Nothing Reported. Medical History No medical history recorded. Gynecological HistoryNo gynecological history recorded. 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 M47.027 [id number] [facility] [address] [place] [address] 02/15/2024 17:50:28 02/15/2024 18:40:01 Spondylosis and allied disorders 951178907 M47.798 [id number] [facility] [address] [place] [address] 02/22/2024 17:14:44 02/22/2024 18:19:05 Spondylosis and allied disorders 977046766 M47.816 Health Concerns Section Related Observation LastModified by Organization Detai ls LastModified Time None Recorded Concern Status LastModified by Organization Details LastModified Time None Recorded Advance Directives Directive None Recorded Payers Insurance Date Sequence Insurance Name Policy Number Policy Haq Covered Member ID Haq Member ID Guarantor Name 02/22/2024 1 [facility] [email or web address] - [facility] (MEDICAID HMO) [id number] Lori Mejia [id number] Lori Mejia Notes Date Note Type Note Provider Name and Address Organization Details Recorded Time 02/08/2024 text/html Pt reporting 5/10 LBP coming into therapy. Yesenia Blunt PTA [address] [facility], [place], [address], [facility] 02/08/2024 18:39:26 02/15/2024 text/html Pt reporting 5/10 LBP coming into therapy. States she sprained her left knee. Yesenia Blunt PTA [address], [place], [address], [facility] 02/15/2024 18:39:29 02/22/2024 text/html Pt reporting she isn't having any pain coming into therapy. States she's been working out with a puppy trainer and feels she can continue with the exercises on her own. Also, she would prefer not to travel so far to therapy. Yesenia Blunt PTA [address], [place], [address], [facility] 02/22/2024 18:18:56 OBGyn Episode No OBEpisode recorded.
--- OUTSIDE RECORDS SUMMARY | 2025-08-27 11:14 | XMS_ITS | Encounter Summary ---
Author Organization [employer] Address [address] [facility] [address] [place] [address] Care Team Providers Care Gill Box Fixer Name Role Phone Harris Hanks MD Primary Care Prov ider Encounter Details Date Type Department Care Team ([facility] st Contact Info) Description 01/06/2025 Orders Only [facility] MED & PEDS [address] [place], [place] [phone] Harris Hanks MD [address] [place] [address] Social History Tobacco Use Types Packs/Day Years [...] Info) Description 08/30/2025 8:30 AM EDT Telemedicine [facility] MED & PEDS [address] [place] [address] Harris Hanks MD [address] [place] [address] documented as of this encounter Visit Diagnoses Not on filedocumented in this encounter Additional Health Concerns Assessment Noted Time PHQ-9 Depression Total Score: 4 12/28/19 25 11:24 AM EST documented as of this encounter Care Teams Gill Box Fixer Relationship Specialty Start Date End Date Harris Hanks MD [address] [place] [address] PCP - General Internal Medicine 11/10/24 documented as of this encounter
--- OUTSIDE RECORDS SUMMARY | 2025-08-27 11:14 | XMS_ITS | Clinical Summary ---
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 (CMS/HCC) 02/23/2025 Severe anxiety 02/23/2025 Assessment & Plan [...] Encounters Date Type Department Care Team Description 08/27/2025 Orders Only GENERIC EXTERNAL DATA DEPARTMENT Provider, Generic External Data 08/14/2025 Orders Only GENERIC EXTERNAL DATA DEPARTMENT Provider, Generic External Data 07/27/2025 3:45 PM EDT Office Visit [facility] [address] [place] [address] Va Negron MD Intraductal carcinoma of left breast (Primary Dx) 07/27/2025 Travel 07/27/2025 Telephone [facility] [address] [place] [address] Va Negron MD Results 07/19/2025 Orders Only [facility] External Provider, [facility] 07/17/2025 Telephone [facility] [address] [place] [address] Harris Hanks MD 06/30/2025 Orders Only [facility] [address] [place] [address] Harris Hanks MD Mass of lower outer quadrant of left breast (Primary Dx) 06/29/2025 Orders Only [facility] [address] [place] [address] Harris Hanks MD Mass of lower outer quadrant of left breast (Primary Dx) 06/09/2025 Telephone [facility] [address] [place] [address] Harris Hanks MD US BREAST APPT 06/07/2025 2:20 PM EDT Office Visit [facility] [address] [place] [address] Harris Hanks MD Mass of lower outer quadrant of left breast (Primary Dx) 06/07/2025 Travel 06/06/2025 Telephone [facility] [address] [place] [address] Harris Hanks MD 05/30/2025 8:30 AM EDT Office Visit [facility] [address] [place] [address] Harris Hanks MD Severe anxiety (Primary Dx) 05/30/2025 Travel from Last 3 Months Immunizations Immunization [...] Upcoming Encounters Date Type Department Care Team ([facility] st Contact Info) Description 08/30/2025 8:30 AM EDT Telemedicine [facility] [address] [place] [address] Harris Hanks MD [address] [place] [address] Health Maintenance Due Date Last Done Comments HIV Screening 1997 Lipid Panel 1997 Disability Screening 1997 Family Planning (PISQ) 2012 Hepatitis C Screening 2015 Pneumococcal Vaccine: Pediatrics (0 to 5 Years) and At-Risk Patients (6 to 49) Years (1 of 2 - PCV) 2016 HPV/Cotest 04/09/2025 Pap Smear 04/09/2025 04/09/2022 Dental Oral Exam 04/12/2025 10/12/2024 COVID-19 Vaccine ( - season) 2025 01/14/2023, 12/12/2022 Influenza Vaccine (#1) [...] METABOLIC PANEL Routine 08/27/2025 10:44 AM EDT IR CVC INSERT TUNNEL W PRT/FACILITY SALES AND ADMIN Routine 08/14/2025 1:04 PM EDT PROTHROMBIN TIME-INR Routine 08/14/2025 11:29 AM EDT HCG, QL, URINE Routine 08/14/2025 9:16 AM EDT US BREAST NDL CORE BIO EA ADD [...] LIMITED LEFT Routine 06/29/2025 11:12 AM EDT PROPHYLAXIS - ADULT Routine 05/25/2025 2 :00 PM EDT BITEWING - SINGLE RADIOGRAPHIC IMAGE Routine 12/13/2024 2:30 PM EST Secondary dental caries associated with failed or defective dental quaker Dental caries PERIODIC ORAL EVALUATION - ESTABLISHED PATIENT Routine 10/12/2024 5:00 PM EST INTRAORAL - COMPLETE SERIES OF RADIOGRAPHIC IMAGES Routine 01/22/2024 11:00 AM EST HM PAP/HPV Routine 04/09/2022 7:50 AM EDT from Last 3 Months or Most Recently Relevant to Health Maintenance Results * Basic Metabolic Panel (08/27/2025 10:44 AM EDT) Sodium 138 135 - 145 mmol/L [facility] Potassium 3.8 3.3 - 5.1 mmol/L [facility] Chloride 105 96 - 108 mmol/L [facility] Carbon Dioxide 25 22 - 29 mmol/L [facility] Anion Gap 12 12 - 20 [facility] Urea Nitrogen (BUN) 9 9 - 16 mg/dL [facility] Creatinine, Serum 0.58 0.5 - 1.4 mg/dL [facility] Creatinine Clr Calc Pharmacy 154.7 [facility] Comment:Provided height and weight: 165.1 cm,82.7 kg.eGFR (calculated from the MDRD study equation) and eCrCl(calculated from the Cockcroft-Gault equation) are based ondifferent parameters and may not yield comparable results.If eCrCl result is absurd, please check patient'sheight/weight. Estimated Glomerular Filt Rate >60 [facility] Comment:Chronic Kidney Disea se: Estimated GFR < 60 mL/min/1.31w1Lrrdqy Kidney Disease: Estimated GFR < 15 mL/min/1.73m2 Glucose 99 60 - 115 mg/dL [facility] Calcium 9.4 8.4 - 10.2 mg/dL [facility] 08/27/2025 10:4 4 AM EDT 08/27/2025 10:50 AM EDT us Generic External Data Provider LAB BLOOD ORDERAB LES Final Result [facility] [address] [place] [phone] * IR cvc insert tunnel w prt/cake washer (08/14/2025 1:04 PM EDT) Anatomical Region Laterality Modality X-Ray Angiograph y 08/14/2025 1:04 PM EDT Narrative 08/17/2025 1:42 PM EDT [address] [address] Interventional Radiology Rpt Signed Patient: Lori Mejai MR#: [id number] : 1995 Acct:[id number] Age/Sex: 29 / F ADM Date: 08/14/25 Loc: .[facility] Attending Dr: Toshia Lacey MD Ordering Physician: Toshia Lacey MD Date of Service: 08/14/25 Procedure(s): IR cvc insert tunnel w prt/cake washer Accession Number(s): [id number] cc: Harris Hanks MD; Toshia Lacey MD Reason for Exam: For chemotherapy PROCEDURE: IR INSERTION OF TUNNEL CATHETER under ultrasound and fluoroscopy. CLINICAL INFORMATION: Breast cancer and needs chemotherapy. COMPARISON: None available. TECHNIQUE: Only explaining ultrasound and fluoroscopy-guided placement of a right PORT catheter procedure, benefits and risk, a written consent was obtained. Patient was placed supine on fluoroscopy table and pulmonary ultrasound imaging was obtained the right neck. An optimal site was selected and marked on the skin. The marked site was cleaned and draped in usual sterile manner. 1% lidocaine was injected puncture site. A singlewall needle was advanced under sterile ultrasound guidance and right jugular vein above the right clavicle was punctured. After observing venous return a thin guidewire was advanced through the needle and placed in SVC and needle withdrawn. A 5 Djiboutian dilator was then advanced over the guidewire and both the catheter and the guidewire anchored to the drape with hemostat. Approximately 1 gauze length from the right neck incision along the right anterior chest wall one percent lidocaine was injected. A small skin incision was performed and blunt dissection was carried out to sedation the Port-A-Cath chamber. Length 1% lidocaine was inserted deep within the soft tissues from the right anterior chest wall to the neck incision. The neck incision was widened slightly. A blunt tunneler attached to the Port-A-Cath was bluntly dissected from the right anterior chest wall incision to the neck incision and the entire catheter was pulled out. The cuff of the catheter lies inside the skin but close to the anterior chest wall incision. The catheter was flushed with saline to evaluate patency. At the neck incision the thin guidewire was removed and a 0.035 J-wire was placed through the 5 Djiboutian dilator into the IVC under fluoroscopy guidance. The tract was dilated with a 5 6 Djiboutian dilator. 7 Djiboutian dilator sheath was introduced over the guidewire. The guidewire and the dilator were removed and the Port-A-Cath was sized. The portacatheter was then inserted through the peel-away sheath under fluoroscopy. As the catheter was inserted the peel-away sheath was gently removed. And a single image was obtained documenting the Port-A-Cath and the tip of the catheter in SVC. 3 0 absorbable subcutaneous sutures followed by skin sutures were placed at the port incision. Nonabsorbable sutures also placed along the right neck incision. Both incisions were covered by Dermabond and simple dressing. All elements of maximal sterile barrier technique followed including use of cap, mask, sterile gown, sterile gloves, a sterile full body drape and hand hygiene. Also followed skin preparation with 2% chlorhexidine for cutaneous antisepsis, and sterile ultrasound preparation with sterile gel and probe cover when applicable. Conscious sedation ( 46 minutes) was utilized during the exam and patient monitored by IR nurse and IR physician. FINDINGS: On preliminary ultrasound imaging there is widely patent right jugular vein. Approximately 25 cm long 6.6 Djiboutian port catheter was inserted under fluoroscopy and ultrasound. The tip of the catheter lies in mid SVC. The catheter was flushed with heparinized saline. The catheter can be used 1 week from the time of insertion. IR/IR cvc insert tunnel w prt/cake washer IMPRESSION: Successful ultrasound and fluoroscopy-guided placement of a 6.6 Djiboutian 25 cm long PORT catheter. The catheter can be used in 1 week's time. Electronically signed by: Javed Turner MD 08/17/2025 01:39 PM EDT Dictated By: Javed Turner MD Signed By: <Electronically signed by Javed Turner MD in OV> 08/17/25 1339 DD/ 1304 TD/TT: 08/14/25 1502 Steam Drier Operator: SHELLY Procedure Note Donotuseinterpreter, Image - 08/17/2025 [place] [address] Interventional Radiology Rpt Signed Patient: Lori Mejia JMR#: [id number] : 1995Acct:[id number] Age/Sex: 29 / FADM Date: 08/14/25 Loc: .[facility] Attending Dr: Toshia Lacey MD Ordering Physician: Toshia Lacey MD Date of Service: 08/14/25 Procedure(s): IR cvc insert tunnel w prt/cake washer Accession Number(s): [id number] cc: Harris Hanks MD; Toshia Lacey MD Reason for Exam: For chemotherapy PROCEDURE: IR INSERTION OF TUNNEL CATHETER under ultrasound and fluoroscopy. CLINICAL INFORMATION: Breast cancer and needs chemotherapy. COMPARISON: None available. TECHNIQUE: Only explaining ultrasound and fluoroscopy-guided placement of a right PORT catheter procedure, benefits and risk, a written consent was obtained. Patient was placed supine on fluoroscopy table and pulmonary ultrasound imaging was obtained the right neck. An optimal site was selected and marked on the skin. The marked site was cleaned and draped in usual sterile manner. 1% lidocaine was injected puncture site. A singlewall needle was advanced under sterile ultrasound guidance and right jugular vein above the right clavicle was punctured. After observing venous return a thin guidewire was advanced through the needle and placed in SVC and needle withdrawn. A 5 Djiboutian dilator was then advanced over the guidewire and both the catheter and the guidewire anchored to the drape with hemostat. Approximately 1 gauze length from the right neck incision along the right anterior chest wall one percent lidocaine was injected. A small skin incision was performed and blunt dissection was carried out to sedation the Port-A-Cath chamber. Length 1% lidocaine was inserted deep within the soft tissues from the right anterior chest wall to the neck incision. The neck incision was widened slightly. A blunt tunneler attached to the Port-A-Cath was bluntly dissected from the right anterior chest wall incision to the neck incision and the entire catheter was pulled out. The cuff of the catheter lies inside the skin but close to the anterior chest wall incision. The catheter was flushed with saline to evaluate patency. At the neck incision the thin guidewire was removed and a 0.035 J-wire was placed through the 5 Djiboutian dilator into the IVC under fluoroscopy guidance. The tract was dilated with a 5 6 Djiboutian dilator. 7 Djiboutian dilator sheath was introduced over the guidewire. The guidewire and the dilator were removed and the Port-A-Cath was sized. The portacatheter was then inserted through the peel-away sheath under fluoroscopy. As the catheter was inserted the peel-away sheath was gently removed. And a single image was obtained documenting the Port-A-Cath and the tip of the catheter in SVC. 3 0 absorbable subcutaneous sutures followed by skin sutures were placed at the port incision. Nonabsorbable sutures also placed along the right neck incision. Both incisions were covered by Dermabond and simple dressing. All elements of maximal sterile barrier technique followed including use of cap, mask, sterile gown, sterile gloves, a sterile full body drape and hand hygiene. Also followed skin preparation with 2% chlorhexidine for cutaneous antisepsis, and sterile ultrasound preparation with sterile gel and probe cover when applicable. Conscious sedation ( 46 minutes) was utilized during the exam and patient monitored by IR nurse and IR physician. FINDINGS: On preliminary ultrasound imaging there is widely patent right jugular vein. Approximately 25 cm long 6.6 Djiboutian port catheter was inserted under fluoroscopy and ultrasound. The tip of the catheter lies in mid SVC. The catheter was flushed with heparinized saline. The catheter can be used 1 week from the time of insertion. IR/IR cvc insert tunnel w prt/cake washer IMPRESSION: Successful ultrasound and fluoroscopy-guided placement of a 6.6 Djiboutian 25 cm long PORT catheter. The catheter can be used in 1 week's time. Electronically signed by: Javed Turner MD 08/17/2025 01:39 PM EDT Dictated By: Javed Turner MD Signed By: <Electronically signed by Javed Turner MD in OV> 08/17/25 1339 DD/ 1304 TD/TT: 08/14/25 1502 Steam Drier Operator: SHELLY us [facility] External Provider IMG IR PROCEDURES Final Result * Prothrombin Time-INR (08/14/2025 11:29 AM EDT) Prothrombin Time 11.1 10.9 - 12.4 SEC [facility] INTERNATIONAL NORM RATIO 1.0 0.9 - 1.1 [facility] Comment:INTERNATIONAL NORMAL IZED RATIO (INR) REFERENCE RANGES Reference RangeFor patients not on anticoagulant therapy: 0.9 - 1.1INR ranges for oral anticoagulanttherapy:For prevention and treatment of venous thrombosis and pulmonary embolism: 2.0 - 3.0For acute myocardial infarction with aspirin therapy: 2.0 - 3.0For acute myocardial infarction without aspirin therapy: 3.0 - 4.0For patients with mechanical prosthetic heart valves: 2.5 - 3.5 08/14/2025 11:2 9 AM EDT 08/14/2025 11:32 AM EDT Generic External Data Provider LAB BLOOD ORDERAB LES Final Result Performing Organization Address [facility] Co de Phone Number [facility] [address] [place] [phone] * HCG, Qualitative, Urine (08/14/2025 9:16 AM EDT) Urine NEGATIVE NEGATIVE [facility] Comment:This test was develo ped to detect early . Falsenegative results may occur after the 5th - 7th week ofpregnancy when using this test method. If clinicallyindicated, consider a serum hCG. 08/14/2025 9:16 AM EDT 08/14/2025 11:09 AM EDT Generic External Data Provider LAB URINE ORDERAB LES Final Result Performing Organization Address [facility] Co de Phone Number [facility] [address] [place] [phone] * US BREAST NDL CORE BIO EA ADD (07/19/2025 3:20 PM EDT) Anatomical Region Laterality Modality Abdomen Ultrasound 07/19/2025 3:20 PM EDT Narrative 07/20/2025 12:41 PM EDT [facility] [address] [place] [address] Ultrasound Report Signed with Lalitha Patient: Lori Mejia MR#: [id number] : 1995 Acct:[id number] Age/Sex: 29 / F ADM Date: 07/19/25 Loc: HO.[facility] Attending Dr: Zach Zheng MD Ordering Physician: Zach Zheng MD Date of Service: 07/19/25 Procedure(s): US breast ndl core bio ea add Accession Number(s): [id number] cc: Harris Hanks MD; Zach Zheng MD [...] 07/20/25 1238 DD/ 1520 TD/TT: 07/19/25 1533 Steam Drier Operator: Procedure Note Donotuseinterpreter, Image - 07/28/2025 [facility] [address] [place] [address] Ultrasound Report Signed with Addenda Patient: Lori Mejia JMR#: [id number] : 1995Acct:[id number] Age/Sex: 29 / FADM Date: 07/19/25 Loc: HO.[facility] Attending Dr: Zach Zheng MD Ordering Physician: Zach Zheng MD Date of Service: 07/19/25 Procedure(s): US breast ndl core bio ea add Accession Number(s): [id number] cc: Harris Hanks MD; Zach Zheng MD [...] 07/20/25 1238 DD/ 1520 TD/TT: 07/19/25 1533 Steam Drier Operator: [facility] External Provider IMG US PROCEDURES Edited Result - Final * Hematoxylin and Eosin Stain (07/19/2025 3:17 PM EDT) 07/19/2025 3:17 PM EDT 07/19/2025 3:51 PM EDT [facility] - 08/23/2025 4:47 PM EDT ----- ------- Name: Lori Mejia Age/Sex: 29/F : 1995 Unit#: [id number] Attend Dr: Zach Zheng MD Re07/19/25 Status: [facility] REF Location: [facility] Disch: ----- ------- SPEC : [id number] RECD: 07/19/25 STATUS: SANTANA WHITTAKER NUM: [id number] DON: 07/19/[address] [facility] [address]: Camryn Figueroa DO ENTERED: 07/19/25 SP TYPE: Surgical OTHR DR: Harris Hanks MD, John J MD ORDERED: HE Stain/4, Gross Micro L4/2, ER/2, MI/2, IHC/2, Add. immunos/4, IHC ER/MI/Her2N/8, E-cadherin/2, Ki-67/2, p63/2, SMM/2, [id number]/2 COMMENTS: Block B, 1 H E, 1 stained slide sent to [facility] for HER2 FISH on 08/02/25. As stated on the specimen requisition: Part A. Time in formalin 1527 Part B time in formalin 1535 THIS IS A CORRECTED REPORT 08/02/25 This is a corrected report. Any previous versions are stored internally and are available if necessary. Addendum Addendum 1 Entered: 08/23/25 HER2 FISH (B): Negative See report in its entirety in the EMR - Reports/Pathology section as a scanned report (camera icon). If appropriate, a copy has also been sent to the ordering provider's office. Addendum Signed (signature on file) Bear Wilson MD 08/23/251646 ----- ------- Diagnosis A. Breast, left mass at 3 [...] by Ki-67 immunostaining) Breast Biopsy Data Synopsis CONTINUED ON NEXT PAGE ----- ------- Name: Lori Mejia Age/Sex: 29/F : 1995 Unit#: [id number] Attend Dr: Zach Zheng MD Re07/19/25 Status: DEP REF Location: [facility] Disch: ----- ------- SPEC : [id number] RECD: 07/19/25 STATUS: SANTANA WHITTAKER NUM: [id number] DON: 07/19/25-[address] [facility] [address]: Camryn Figueroa DO ENTERED: 07/19/25 SP TYPE: Surgical OTHR DR: Nadir Garcia,Harris Zheng,Zach Galvin MD ORDERED: HE Stain/4, Gross Micro L4/2, ER/2, MI/2, IHC/2, Add. immunos/4, IHC ER/MI/Her2N/8, E-cadherin/2, Ki-67/2, p63/2, SMM/2, YNW4DXD/2 COMMENTS: Block B, 1 H E, 1 stained slide sent to [facility] for HER2 FISH on 08/02/25. As stated on the specimen requisition: Part A. Time in formalin 1527 Part B time in formalin 1535 Diagnosis (Continued) Procedure: Core biopsy Specimen laterality: Left masses at 3 and 5 o'clock Histologic type: Ductal Histologic grade (Bentley/MSBR histologic score): 1 - Glandular/tubular differentiation: Score: 2 - Nuclear pleomorphism: Score: 2 - Mitotic rate: Score: 1 Tumor size: Largest linear diameter: 14 mm (B) Ductal carcinoma in situ: Present, focal Lymphovascular invasion: Not identified Microcalcifications: Present Note: Some of the listed elements may change with subsequent review of the entire lesion. Note: Corrected report note (08/02/2025): In the [...] in-situ carcinoma is present in part B. CONTINUED ON NEXT PAGE ----- ------- Name: RobertoLori Galvin Age/Sex: : 1995 Unit#: [id number] Attend Dr: Zach Zheng MD Re07/19/25 Status: [facility] REF Location: .[facility] Disch: ----- ------- SPEC : [id number] RECD: 07/19/25-1550 STATUS: SANTANA [facility] NUM: [id number] DON: 07/19/25-[address] [facility] [address]: Camryn Figueroa DO ENTERED: 07/19/25-155 SP TYPE: Surgical OTHR DR: Harris Hanks MD, John J MD ORDERED: HE Stain/4, Gross Micro L4/2, ER/2, MI/2, IHC/2, Add. immunos/4, IHC ER/MI/Her2N/8, E-cadherin/2, Ki-67/2, p63/2, SMM/2, ZKD5LSU/2 COMMENTS: Block B, 1 H E, 1 stained slide sent to [facility] for HER2 FISH on 08/02/25. As stated on the specimen requisition: Part A. Time in formalin 1527 Part B time in formalin 1535 Material Received A. Left breast mass 3 [...] Time tissue removed from patient: 151 (A), 1529 (B) Time tissue placed in fixative: 1527 (A), 1535 (B) Duration of fixation: between 6 and 24 hrs. Estrogen and Progesterone receptor immunohistochemistry performed in accordance with ASCO/CAP recommendations (2010). Estrogen receptor: Clone SP1; Dako Envision+ Dual Link System-HRP. Progesterone receptor: Clone GdN218; BiocDealer Ignition Mach 4 detection system. Her-2/abdulkadir immunohistochemistry performed in accordance with ASCO/CAP recommendations (2007) and update (2013). Hercep Test Detection system: Polymer type Scoring criteria: For ER/MI and Her-2/abdulkadir: All internal (if present) and external controls react appropriately. CONTINUED ON NEXT PAGE ----- ------- Name: Lori Mejia Age/Sex: 29/F : 1995 Unit#: [id number] Attend Dr: Zach Zheng MD Re07/19/25 Status: DEP REF Location: [facility] Disch: ----- ------- SPEC : [id number] RECD: 07/19/25 STATUS: SANTANA WHITTAKER NUM: [id number] DON: 07/19/25-[address]: Camryn Figueroa DO ENTERED: 07/19/25 SP TYPE: Surgical OTHR DR: Nadir Gacria,Harris Zheng,Zach Galvin MD ORDERED: HE Stain/4, Gross Micro L4/2, ER/2, MI/2, IHC/2, Add. immunos/4, IHC ER/MI/Her2N/8, E-cadherin/2, Ki-67/2, p63/2, SMM/2, [id number]/2 COMMENTS: Block B, 1 H E, 1 stained slide sent to [facility] for HER2 FISH on 08/02/25. As stated on the specimen requisition: Part A. Time in formalin 1527 Part B time in formalin 1535 Gross Description (Continued) ER and MI immunostains are scored as Positive (> 10% [...] Arch of Pathol Lab Med, 142, 2018: 8004-6507. Evelin SUAREZ, Jw BLANTON, et al. Estrogen and Progesterone Receptor Testing in Breast Cancer: ASCO/CAP Guideline Update. Arch of Pathol Lab Med, 144 2020: 545-563. Milvia N, Addie P, et al. Adjuvant abemaciclib combined with endocrine therapy for high- risk early breast cancer: updated efficacy and Ki-67 analysis from the monarchE study. Kristel Oncol. 2020;32(12):4002-8370. This case was reviewed intradepartmentally; results were communicated to Drs. Zheng and Carolina on 07/26/2025. Special studies ordered and performed: immunostains for ER, MI, HER2, Ki-67, e-cadherin, p63 and smooth muscle myosin on A and B CONTINUED ON NEXT PAGE ----- ------- Name: Lori Mejia Age/Sex: 29/F : 1995 Unit#: [id number] Attend Dr: Zach Zheng MD Re07/19/25 Status: DEP REF Location: [facility] Disch: ----- ------- SPEC : [id number] RECD: 07/19/25 STATUS: SANTANA WHITTAKER NUM: [id number] DON: 07/19/25-[address] [facility] [address]: Camryn Figueroa DO ENTERED: 07/19/25 SP TYPE: Surgical OTHR DR: Harris Hanks MD,Zach Galvin MD ORDERED: HE Stain/4, Gross Micro L4/2, ER/2, MI/2, IHC/2, Add. immunos/4, IHC ER/MI/Her2N/8, E-cadherin/2, Ki-67/2, p63/2, SMM/2, WEB5IIC/2 COMMENTS: Block B, 1 H E, 1 stained slide sent to [facility] for HER2 FISH on 08/02/25. As stated on the specimen requisition: Part A. Time in formalin 1527 Part B time in formalin 1535 IHC S/NG Disclaimer NOTE: Unless otherwise stated, all tissue is formalin-fixed and paraffin-embedded. Some or all of the immunohistochemical tests reported herein may have been developed and their performance characteristics determined by [facility]. They have not been cleared or approved by the U.S. Food and Drug Administration (FDA). However, the FDA has determined that such clearance or approval is not necessary. This laboratory is certified under the Clinical Laboratory Improvement Amendments of 1988 (CLIA) as qualified to perform high complexity clinical laboratory testing. Copies To: Harris Hanks MD [address] [id number] Zach Zheng MD [facility] [address] [place] [address] [phone] Camryn Figueroa DO [address] [place] [address] ----- ------- Signed (signature on file) Bear Wilson MD 08/02/25 1422 ----- ------- END OF REPORT us Generic External Data Provider LAB BLOOD ORDERAB LES Final Result [facility] [address] [place] [phone] * US BREAST NDL CORE BIOPSY LT (07/19/2025 2:55 PM EDT) Anatomical Region Laterality Modality Abdomen Ultrasound 07/19/2025 2:55 PM EDT Narrative 07/20/2025 12:41 PM EDT [facility] [address] [place] [address] Ultrasound Report Signed with Lalitha Patient: Lori Mejia MR#: [id number] 384 : 1995 Acct:[id number] Age/Sex: 29 / F ADM Date: 07/19/25 Loc: EVI Attending Dr: Zach Zheng MD Ordering Physician: Zach Zheng MD Date of Service: 07/19/25 Procedure(s): US breast ndl core biopsy LT Accession Number(s): [id number] cc: Harris Hanks MD; Zach Zheng MD [...] 07/20/25 1238 DD/ 1455 TD/TT: 07/19/25 1545 Steam Drier Operator: Procedure Note Donotuseinterpreter, Image - 07/28/2025 [facility] [address] [place] [address] Ultrasound Report Signed with Addenda Patient: Lori Mejia JMR#: [id number] 384 : 1995Acct:[id number] Age/Sex: Date: 07/19/25 Loc: HO.MAMMO Attending Dr: Zach Zheng MD Ordering Physician: Zach Zheng MD Date of Service: 07/19/25 Procedure(s): US breast ndl core biopsy LT Accession Number(s): [id number] cc: Harris Hanks MD; Zach Zheng MD [...] 07/20/25 1238 DD/ 1455 TD/TT: 07/19/25 1545 Steam Drier Operator: [facility] External Provider IMG US PROCEDURES Edited Result - Final * BI Mammogram Diagnostic Tomosynthesis Left (07/19/2025 2:42 PM EDT) Anatomical Region Laterality Modality Breast Left Mammography 07/19/2025 2:42 PM EDT Narrative 07/20/2025 12:41 PM EDT [facility] [address] [place] [address] Mammography Report Signed with Addenda Patient: Lori Mejia MR#: [id number] 384 : 1995 Acct:[id number] Age/Sex: 29 / F ADM Date: 07/19/25 Loc: HO.MAMMO Attending Dr: Zach Zheng MD Ordering Physician: Zach Zheng MD Results: Date of Service: 07/19/25 Follow Up: Procedure(s): MM tomosynthesis diagnostic LT Accession Number(s): [id number] cc: Harris Hanks MD; Zach Zheng MD [...] 07/20/25 1238 DD/ 1442 TD/TT: 07/19/25 1545 Steam Drier Operator: Procedure Note Donotuseinterpreter, Image - 07/28/2025 [facility] [address] [place], [place] [address] Mammography Report Signed with Addenda Patient: Lori Mejia R#: [id number] 384 : 1995Acct:[id number] Age/Sex: Date: 07/19/25 Loc: HO.MAMMO Attending Dr: Zach Zheng MD Ordering Physician: Zach Zhengults: Date of Service: 07/19/25Follow Up: Procedure(s): MM tomosynthesis diagnostic LT Accession Number(s): [id number] cc: Harris Hanks MD; Zach Zheng MD [...] 07/20/25 1238 DD/ 1442 TD/TT: 07/19/25 1545 Steam Drier Operator: [facility] External Provider IMG BI PROCEDURES Edited Result - Final * BI MR Breast w and w/o Contrast Bilateral (07/06/2025 3:00 PM EDT) Anatomical Region Laterality Modality Breast Bilateral Magnetic Resonan ce 07/06/2025 3:00 PM EDT Narrative 07/10/2025 9:19 AM EDT [place] [address] Magnetic Resonance Report Signed Patient: Lori Mejia MR#: [id number] 384 : 1995 Acct:[id number] Age/Sex: 29 / F ADM Date: 07/06/25 Loc: HO.MRI Attending Dr: Harris Garcia MD Ordering Physician: Harris Hanks MD Date of Service: 07/06/25 Procedure(s): MR breast BI wo/w con Accession Number(s): [id number] cc: Harris Hanks MD EXAMINATION: MR BREAST [...] 07/10/25 0916 DD/ 1500 TD/TT: 07/06/25 1540 Steam Drier Operator: Procedure Note Donotuseinterpreter, Image - 07/10/[address] [address] Magnetic Resonance Report Signed Patient: Lori Mejia JMR#: [id number] 384 : 1995Acct:[id number] Age/Sex: 29 / FADM Date: 07/06/25 Loc: HO.MRI Attending Dr: Harris Garcia MD Ordering Physician: Harris Hanks MD Date of Service: 07/06/25 Procedure(s): MR breast BI wo/w con Accession Number(s): [id number] cc: Harris Hansk MD EXAMINATION: MR BREAST WITHOUT AND WITH [...] 07/10/25 0916 DD/ 1500 TD/TT: 07/06/25 1540 Steam Drier Operator: Harris Garcia MD IMG MRI PROCEDURES Final Result * BI Mammogram Diagnostic Tomosynthesis Bilateral (06/29/2025 11:30 AM EDT) Anatomical Region Laterality Modality Breast Bilateral Mammography 06/29/2025 11:3 0 AM EDT Narrative 06/29/2025 2:33 PM EDT [facility] [address] [place] [address] Mammography Report Signed Patient: Lori Mejia MR#: [id number] 384 : 1995 Acct:[id number] Age/Sex: 29 / F ADM Date: 06/29/25 Loc: HO.MAMMO Attending Dr: Harris Garcia MD Ordering Physician: Harris Hanks MD Res ults: 4Suspicious Finding Date of Service: 06/29/25 Follow Up: Biopsy Recommend ed Procedure(s): MM tomosynthesis diagnostic BI Accession Number(s): [id number] cc: Harris Hanks MD EXAMINATION: MM DIAGNOSTIC [...] 06/29/25 1430 DD/ 1130 TD/TT: 06/29/25 1145 Steam Drier Operator: Procedure Note Donotuseinterpreter, Image - 06/29/2025 [facility] [address] [place] [address] Mammography Report Signed Patient: Lori Mejia JMR#: [id number] 384 : 1995Acct:[id number] Age/Sex: Date: 06/29/25 Loc: HO.MAMMO Attending Dr: Harris Garcia MD Ordering Physician: Harris Hanks ults: 4Suspicious Finding Date of Service: 06/29/25Follow Up: Biopsy Recommend ed Procedure(s): MM tomosynthesis diagnostic BI Accession Number(s): [id number] cc: Harris Hanks MD EXAMINATION: MM DIAGNOSTIC [...] 06/29/25 1430 DD/ 1130 TD/TT: 06/29/25 1145 Steam Drier Operator: Harris Garcia MD IMG BI PROCEDURES Final Result * BI US Breast Limited Left (06/29/2025 11:12 AM EDT) Anatomical Region Laterality Modality Breast Left Ultrasound 06/29/2025 11:1 2 AM EDT Narrative 06/29/2025 2:33 PM EDT [facility] [address] [place] [address] Ultrasound Report Signed Patient: Lori Mejia MR#: [id number] 384 : 1995 Acct:[id number] Age/Sex: 29 / F ADM Date: 06/29/25 Loc: HO.MAMMO Attending Dr: Harris Garcia MD Ordering Physician: Harris Hanks MD Date of Service: 06/29/25 Procedure(s): US breast LT limited mamm only Accession Number(s): [id number] cc: Harris Hanks MD EXAMINATION: MM DIAGNOSTIC [...] 06/29/25 1430 DD/ 1112 TD/TT: 06/29/25 1130 Steam Drier Operator: Procedure Note Donotuseinterpreter, Image - 06/30/2025 [facility] [address] [place], [place] [address] Ultrasound Report Signed Patient: Mejia,Lori JMR#: [id number] 384 : 1995Acct:[id number] Age/Sex: 29 / FADM Date: 06/29/25 Loc: HO.MAMMO Attending Dr: Harris Garcia MD Ordering Physician: Harris Hanks MD Date of Service: 06/29/25 Procedure(s): US breast LT limited mamm only Accession Number(s): [id number] cc: Harris Hanks MD EXAMINATION: MM DIAGNOSTIC [...] 06/29/25 1430 DD/ 1112 TD/TT: 06/29/25 1130 Steam Drier Operator: Harris Garcia MD IMG US PROCEDURES Final Result * HM PAP/HPV (04/09/2022 7:50 AM EDT) Historical Provider HEALTH MAINTENANCE Final Result from Last 3 Months or Most Recently Relevant to Health Maintenance Insurance [facility] [address] [place] [address] DENTAL - HSN FULL (MEDICAID) Care Teams Electrical Panel Builder Relationship Specialty Start Date End Date Harris Hanks MD [address] [place] [id number] PCP - General Internal Medicine 11/10/24
--- NOTE | 2025-08-27 11:15 | ED_ITS ---
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 Lacey presents to ED due to an episode of tingling of entire face with lightheadedness that woke her from sleep this morning and lasted about 45 minutes before resolving. Patient called her oncologist office and was recomended to come to ED for further evaluation. Denies chest pain, fevers, SOB, difficulty breathing, confusion, MD complaint: tingling face, lightheadedness Related Data Previous Rx's ?Medication ?Instructions ?Recorded dexamethasone 4 mg tablet 4 mg PO BID #30 tabs 5 ondansetron 8 mg disintegrating 8 mg PO Q8H PRN Nausea And 08/09/25 tablet Vomiting #30 tabs cholecalciferol (vitamin D3) 25 25 mcg PO DAILY #30 ta bs 08/22/25 mcg (1,000 unit) chewable tablet (Vitamin D3) omeprazole 20 mg capsule,delayed 20 mg PO DAILY #30 ca ps 08/25/25 release Allergies Allergy/AdvReac Type Severity Reaction Status Date / Time TUNA FISH Allergy Unknown SWELLING Uncoded 08/27/25 10:34 Review of Systems 2 Review of Systems: CONST: Negative for fever, body aches and chills. HENT: Negative for neck pain/stiffness, headache, congestion, sore throat, swelling. EYES: Negative for discharge/pain or vision changes. RESP: Negative for cough/hemoptysis and shortness of breath. CV: Negative chest pain, difficulty breathing, palpitations. ABD: Negative pain, nausea, vomiting. : Negative increase frequency, dysuria, blood in urine or stool. MUSC: Negative for muscle aches, edema. SKIN: Negative rash, lesions/sores. NEURO: Negative headache, dizziness, weakness. Yes all other systems are reviewed and are negative PMFSH Past Medical History Attestation statement: The following information was validated with the patient. Source: old records reviewed, obtained from family (Significant other at bedside) and nursing notes reviewed Family History Family History Maternal Aunt Breast cancer, Onset Age: 40 Mother Cystic breast Father Diabetes HTN (hypertension) Paternal Grandmother Diabetes Paternal Grandfather Liver cancer Social History Social History Household Members: Spouse and Family Are you a primary aged or disabled carer to a significant other at home: No Do you presently have visiting nurse or other home services: No Patient Tobacco Use Status: Never used Tobacco Substance Use Type: Marijuana Advance Directives: No Advance Directives Information Provided: Yes Do you have a plan to hurt others: No Plan service: No Current occupational status: employed Physical Exam ED Vital Signs: Vital Signs - 24 hr 08/27/25 10:29 08/27/25 10:54 08/27/25 14:21 Temperature 98.0 F 98.6 F 98.7 F Pulse Rate 83 69 67 Respiratory Rate 18 20 16 Blood Pressure 127/62 118/68 133/74 Pulse Oximetry 100 99 99 Oxygen Delivery Method Room Air Room Air Room Air BMI result Body Mass Index 30.3 GENERAL APPEARANCE: ?AxOx4, generally well-appearing, no acute distress. HEENT: ?NC, AT. MMM. EOMI, clear conjunctiva, oropharynx clear. NECK: ?Supple without lymphadenopathy.? No stiffness or restricted ROM. HEART:? Normal rate and regular rhythm, normal S1/S2, no m/r/g LUNGS:? CTAB, moving air well. No crackles or wheezes are heard. ABDOMEN: ?Soft, nontender, nondistended BACK: No CVAT, no obvious deformity. EXTREMITIES: ?Without cyanosis, clubbing or edema. NEUROLOGICAL: ?Grossly nonfocal. Alert and oriented, moving all 4 extremities. Observed to ambulate with normal gait, patient able to toe-walk and heel-walk, no facial drooping, no dysarthria, no speech slurring, no pronator drift. NIHSS 0 Skin: ?Warm and dry without any rash. NIH Stroke Scale Internal: Initial- Upon Arrival Level of Consciousness: Alert Level of Consciousness Questions: Answers both questions correctly Level of Consciousness Commands: Performs both tasks correctly Best Gaze: Normal Visual: No visual loss Facial Palsy: Normal Motor Arm (Right): No drift Motor Arm (Left): No drift Motor Leg (Right): No drift Motor Leg (Left): No drift Limb Ataxia: Absent Sensory: Normal Best Language: No aphasia Dysarthia: Normal Extinction and Inattention: No abnormality Score: 0 Medications Administered Discontinued Medications Generic Name Dose Route Start Last Admin Trade Name Ramesh PRN Reason Stop Dose Admin Lactated Ringer's 1,000 mls @ 999 mls/hr 08/27/25 11:14 08/27/25 13:03 Lr IV 08/27/25 12:14 Infused .Q1H1M ONE Infusion Medical Decision Making Medical Decision Making MDM Narrative: 29-year-old female with 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 Lacey presents to ED due to an episode of tingling of entire face with lightheadedness that woke her from sleep this morning and lasted about 45 minutes before resolving. Patient called her oncologist office and was recomended to come to ED for further evaluation. Denies chest pain, fevers, SOB, difficulty breathing, confusion VS on initial observation-BP 127/62, pulse rate of 83, respiratory rate of 18, afebrile with oral temp of 98?, O2 saturation 100% on room air. Physical exam was benign, no focal neurological deficits, EOMI, pupils reactive to consensual light and accommodation, no speech slurring, no dysarthria, no pronator drift, strength 5/5 of upper extremities, strength 5/5 of lower extremities, SILT, no cerebellar signs, patient ambulating without ataxia, patient able to heel and toe walk without issue. Labs without leukocytosis/leukopenia, H&H stable, neutropenia with neutrophils of 0, no electrolyte imbalance, beta hCG negative. UA negative for blood or infection. I wanted to check for COVID or flu but patient denied swabs stating she did not want to be tested. EKG reveals normal sinus rhythm, without ST-elevation/depression, T-wave abnormality, lengthened QT or arrhythmia. CT head/brain negative for acute intracranial abnormalities. I reached out to the patient's oncologist Dr. Lacey to discuss patients symptoms. Dr. Lacey notified of neutropenia, and agreed with discharge if patient asymptomatic. Patient continued to be asymptomatic in the department and felt much better after IV fluids. Patient requesting to leave and is anxious for discharge. I discussed neutropenia with patient and educated her that this lab finding making her immunocompromised and more susceptible to viruses and infections. I counseled patient to follow up with her oncologist Dr Lacey on Thursday and PCP to ensure close follow up. At this time I believe her symptoms correlate clinically with chemotherapy side effects. Patient to be discharged home and was counseled on strict return precautions. Patient and her significant other at bedside are agreeable to the plan. Furthermore, I spoke with my attending physician Dr. Wayne Holt who reviewed the patients HPI and lab results and agreed for discharge home with resolution of symptoms. Differential Diagnosis Differential Diagnoses: The differential diagnosis associated with the presentation includes ICH Brain mass Chemotherapy side effect Neutropenia Electrolyte abnormality Admission/Observation Consideration of admission/observation: Escalation of care including admission/observation considered Lab Data MDM Lab Attestation statement: I reviewed the patient's lab results. 08/27/25 10:44 08/27/25 10:44 Labs: Lab Results 08/27/25 08/27/25 Range/Units 10:44 13:43 WBC 6.9 (4.8-10.8) X10*3/uL RBC 4.17 L (4.20-5.50) X10*6/uL Hgb 12.4 (12.0-16.0) g/dl Hct 36.7 L (37.0-47.0) % MCV 88.0 (80.0-98.0) fL MCH 29.7 (27.0-33.0) pg MCHC 33.8 (31.0-35.0) g/dl RDW 13.5 (11.0-16.0) % Plt Count 226 (160-400) X10*3/uL MPV 9.7 (9.4-12.3) fL Immature Gran % (Auto) Cancelled Neut % (Auto) Cancelled Lymph % (Auto) Cancelled [place] % (Auto) Cancelled Eos % (Auto) Cancelled Baso % (Auto) Cancelled Lymph # (Auto) Cancelled [place] # (Auto) Cancelled Eos # (Auto) Cancelled Baso # (Auto) Cancelled Abs Immat Gran (auto) Cancelled Absolute Neuts (auto) Cancelled Absolute Nucleated RBC 0.000 (0.0-0.012) X10*3/uL Nucleated RBC % (auto) 0.0 (0.0-0.2) /100WBC Neutrophils % (Manual) 81 H (45-73) % Band Neutrophils % 0 L (3-5) % Lymphocytes % (Manual) 17 L (20-40) % Eosinophils % (Manual) 2 (0-4) % Abs Neuts (Manual) 5.6 (2.0-8.3) X10*3/uL Lymphocytes # (Manual) 1.2 (1.2-4.9) X10*3/uL Eosinophils # (Manual) 0.1 (0.0-0.4) X10*3/uL Platelet Estimate NORMAL (NORMAL) Plt Morphology Comment NORMAL RBC Morphology NORMAL Sodium 138 (135-145) mmol/L Potassium 3.8 (3.3-5.1) mmol/L Chloride 105 (96-108) mmol/L Carbon Dioxide 25 (22-29) mmol/L Anion Gap 12 (12-20) BUN 9 (9-16) mg/dL Creatinine 0.58 (0.5-1.4) mg/dL Estim Creat Clear Calc 154.7 Estimated GFR > 60 Random Glucose 99 (60-115) mg/dL Calcium 9.4 (8.4-10.2) mg/dL Beta HCG, Quant < 2 mIU/mL Urine Color Yellow Urine Appearance Clear Urine pH 7.0 (5.0-9.0) Ur Specific [place] <= 1.005 (1.005-1.025) Urine Protein Negative (Neg-Trace) mg/dL Urine Glucose (UA) Negative (Negative) mg/dL Urine Ketones Negative (Negative) mg/dL Urine Blood Negative (Negative) Urine Nitrite Negative (Negative) Ur Leukocyte Esterase Negative (Negative) Independent Interpretation I performed an independent interpretation of an: EKG Interpretation: I personally interpreted the EKG which revealed normal sinus rhythm, without ST- elevation/depression, T-wave abnormality, lengthened QT or arrhythmia Vent. Rate : 84 BPM Atrial Rate : 84 BPM P-R Int : 128 ms QRS Dur : 86 ms QT Int : 358 ms P-R-T Axes : 45 42 0 degrees QTcB Int : 423 ms Normal sinus rhythm Normal ECG When compared with ECG of 17-Oct-2016 07:07, No significant change was found I personally interpreted the CT head/brain which was negative for acute intracranial abnormality, I agree with the radiologist's interpretation Radiology Impression Discussion of test interpretation with radiology: I have reviewed the radiologist's reading. Radiologist Impression: CT head/brain Findings: No acute hemorrhage. No extra-axial fluid collection. No hydrocephalus, mass-effect or herniation. Guillen-white differentiation is maintained. White matter is within normal limits for age. No acute orbital pathology. No acute soft tissue abnormality. No fracture. The visualized paranasal sinuses are predominantly clear. The mastoid air cells are clear. Impression: No acute findings. This document has been electronically signed by: Asmita Alamo MD on 08/27/2025 15:01:36 Dictated By: Asmita Arevalo MD Signed By: <Electronically signed by Asmita Arevalo MD in OV> 08/27/25 1502 Independent Historian Clinical information obtained from an independent historian. History obtained from or confirmed by: Spouse (Significant other at bedside corroborating history) External Record Review External record reviewed: Inpatient record, Office record and Outpatient record Chronic Conditions Patient?s care impacted by: Other (IDC of breast, on chemotherapy) Discharge Plan Discharge Clinical Impression: Chemotherapy induced neutropenia Patient Disposition: Home, Self-Care Instructions: Neutropenia (ED) Additional Instructions: You were evaluated in the ED today due to tingling sensation of face, with sensation of lightheadedness. Your lab work today showed that you have a severe decrease in your neutrophils which is a white blood cell this is most likely due to chemotherapy, no electrolyte abnormalities today. Head CT was negative for acute abnormalities. Urine was negative for blood or infection. I spoke to your oncologist Dr. Lacey who would like you to call the office Thursday morning for follow up appointment. Additionally, please follow up with your primary care doctor. Your symptoms are most likely due to side effects of chemotherapy. Please follow up with oncology and pcp. Please return to the emergency department if you develop a fever over 100.4?, worsening tingling of your face, chest pain, shortness of breath, difficulty breathing, abdominal pain, nausea, vomiting, dizziness, lightheadedness or any new/worsening/concerning symptoms. Prescriptions: No Action ondansetron 8 mg Tablet,Disintegrating 8 mg PO Q8H PRN (Reason: Nausea And Vomiting) Qty: 30 2RF dexamethasone 4 mg Tablet 4 mg PO BID Qty: 30 0RF Rx Instructions: Take 4 mg (1 tab) twice a day for 3 days after chemotherapy cholecalciferol (vitamin D3) [Vitamin D3] 25 mcg (1,000 unit) Tablet,Chewable 25 mcg PO DAILY Qty: 30 3RF omeprazole 20 mg Capsule,Delayed Release(Dr/Ec) 20 mg PO DAILY Qty: 30 0RF Rx Instructions: Take it on empty stomach in the morning 30-45 minutes before eating or drinking. Interventions: ED Discharge Assessment Last Done: 08/27/25 14:21 Discharge Date/Time: 08/27/25 14:21 Print Language: Pashto
[2025-08-27 11:33] LABS: Band Neutrophils Percent 0 % (3-5); Eosinophils Absolute Manual 0.1 X10*3/uL (0.0-0.4); Eosinophils Percent Manual 2 % (0-4); Lymphocytes Absolute Manual 1.2 X10*3/uL (1.2-4.9); Lymphocytes Percent Manual 17 % (20-40); Neutrophils Absolute Manual 5.6 X10*3/uL (2.0-8.3); Neutrophils Percent Manual 81 % (45-73); RBC Morphology NORMAL
[2025-08-27] MEDS: Lactated Ringers 1,000 ML 999 ML IV (11:56)
[2025-08-27 13:52] LABS: Appearance Urine Clear; Glucose Urine UA Negative (Negative); PH 7.0 (5.0-9.0); Specific Gravity - Urine <= 1.005 (1.005-1.025)
[2025-08-27 14:21] VITALS: BP 133/74; PULSE 67; RESP 16; TEMP 37.1; O2SAT 99
== END 2025-08-27 14:21 | disposition home or self-care (01) ==
PROVIDERS: Emergency Provider Emergency Medicine; PCP Internal Medicine
DX: D70.8 Other neutropenia (principal); R42 Dizziness and giddiness; R20.0 Anesthesia of skin; R10.22 Pelvic and perineal pain left side; R11.0 Nausea; Z79.899 Other long term (current) drug therapy
CPT/HCPCS: 36415; 70450; 80048; 81003; 84702; 85007; 85025; 85027; 93005; 96360; 99284; 99285; J7120

== ENCOUNTER → 2025-08-27 10:39 | Outpatient (BNV) | payer OTHER, SELFPAY | PROVIDERS: Emergency Provider Emergency Medicine; PCP Internal Medicine; Visit Provider Internal Medicine Cardiovascular Disease | DX: R42 Dizziness and giddiness (principal) | CPT/HCPCS: 93010 ==

== ENCOUNTER → 2025-08-27 11:14 | Outpatient (BNV) | payer OTHER, SELFPAY | PROVIDERS: Emergency Provider Emergency Medicine; PCP Internal Medicine; Visit Provider Radiology Diagnostic Radiology | DX: R42 Dizziness and giddiness (principal); R20.2 Paresthesia of skin | CPT/HCPCS: 70450 ==

== ENCOUNTER 2025-10-30 07:48 | Outpatient (REF) | payer OTHER, SELFPAY ==
--- NOTE | ~2025-10-30 | MM_ITS ---
EXAMINATION(S): 1. MM DIAGNOSTIC DIGITAL BREAST TOMOSYNTHESIS, LEFT 2. TARGETED ULTRASOUND OF THE LEFT BREAST CLINICAL INFORMATION: -Bilateral diagnostic mammogram and left breast ultrasound on June 29, 2025 to evaluate left breast palpable concern. Report describes 2.0 x 1.3 x 0.6 cm mass at 3:00-4:00 at 6 cm from the nipple and 2.3 x 1.3 x 1.5 cm mass at 6:00 at 6 cm from the nipple. Given the ill-defined margins, it was difficult to assess exact size. -breast MRI on July 06, 2025. Study showed extensive mass involving the lower central and lower outer breast, extending from approximately 9.2 x 3.7 x 3.3 cm. - July 19, 2025: Ultrasound-guided needle core biopsy of the following sites: --Left breast mass at 3:00: Invasive ductal carcinoma. Butterfly clip placed. 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 Open coil clip placed. -Patient received four cycles of chemotherapy. Today's study is for local reevaluation. Case discussed with Dr. Lacey prior to today's studies. COMPARISON: Breast MRI on July 06, 2025. Ultrasound-guided needle core biopsy on July 19, 2025. Bilateral diagnostic mammogram and left breast ultrasound on June 29, 2025. TECHNIQUE: Digital breast tomosynthesis is performed in both the mediolateral oblique and craniocaudal views along with computer-aided detection (CAD). Synthesized 2D images are generated from the tomosynthesis. FINDINGS: BREAST COMPOSITION: There are scattered areas of fibroglandular density. LEFT BREAST: Redemonstration of two dominant areas of the focal asymmetries associated with architectural distortion, containing biopsy clips, located in the lateral breast at approximately 3 o'clock position posterior depth and lower breast at approximately 6 o'clock position posterior depth. Difficult to evaluate for interval changes given ill-defined margins of the focal asymmetries. Targeted ultrasound of the left breast was performed at in the vicinity of the biopsy markers. -Survey centered at 3 o'clock position 7 cm from the nipple: The biopsy clip is identified. The surrounding tissue is heterogeneous, and it is difficult to identify the margins of a mass. -Survey centered at 6 o'clock position at 6 cm from the nipple. The biopsy clip is identified, therefore, this likely correlates with the biopsy location labeled at 5:00 on the prior images. The surrounding tissues heterogeneous, and is difficult to identify the margins of a mass. MM/MM diagnostic mammo unilat LT IMPRESSION: LEFT BREAST: Patient with biopsy-proven invasive ductal carcinoma at two locations (3:00 and 6:00). Abnormal findings of the tissue adjacent to the biopsy clips on the mammogram and ultrasound persist, however, given the ill-defined appearance, it is difficult to determine exact margins for size comparison. Bilateral breast MRI is recommended to better assess response to the treatment. ASSESSMENT: BI-RADS: Category 6: Known Biopsy-Proven Malignancy RECOMMENDATION: Additional Imaging required Results were provided to the patient at time of visit by the technologist. This patient's information was entered into a reminder system with a target due date for their next mammogram. Electronically signed by: Sanam Wellington MD 10/30/2025 09:33 AM [facility]
--- OUTSIDE RECORDS SUMMARY | 2025-10-30 07:53 | XMS_ITS | Encounter Summary ---
Author Organization [employer] Address [address] [facility] [address] [place] [address] Care Team Providers Care Route Contractor Name Role Phone Harris Hanks MD Primary Care Prov ider Encounter Details Date Type Department Care Team (Late st Contact Info) Description 12/28/2024 Orders Only [facility] [address] [place] [address] Harris Hanks MD [address] [place] [address] Social History Tobacco Use Types Packs/Day Years [...] Assessment Author Somewhat difficult 12/28/2024 11:24 AM EST Garrick Black [place] documented as of this encounter Plan of Treatment Upcoming Encounters Date Type Department Care Team (Late st Contact Info) Description 12/04/2025 1:30 PM EST Office Visit [facility] [address] [place] [address] Harris Hanks MD [address] [place] [address] 04/17/2026 9:30 AM EDT Office Visit [facility] [address] [place] [address] Yazmin Espinosa documented as of this encounter Visit Diagnoses Not on filedocumented in this encounter Additional Health Concerns Assessment Noted Time PHQ-9 Depression Total Score: 4 12/28/19 25 11:24 AM EST documented as of this encounter Care Teams Route Contractor Relationship Specialty Start Date End Date Harris Hanks MD [address] [place] [address] PCP - General Internal Medicine 11/10/24 documented as of this encounter
--- OUTSIDE RECORDS SUMMARY | 2025-10-30 07:53 | XMS_ITS | Clinical Summary ---
Author Organization [employer] Address [address] [place] [address] Care Team Providers Care Director Pharmacology Name Role Phone Harris Hanks MD Primary [...] Active Additional Information Patient not taking.Reported on 10/17/2025 Omeprazole 20 MG tablet delayed-release Take 1 tablet (20 mg) by mouth Once per day. 90 tablet 3 5 01/27/20 26 Active Additional Information Patient not taking.Reported on 10/17/2025 triamcinolone (Kenalog) 0.1 % creamIndications :Irritant contact dermatitis due to other agents Apply topically if needed in the morning and at bedtime for irritation. 15 g 2 Active Additional Information Patient not taking.Reported on 10/17/2025 hydrOXYzine HCl (Atarax) 25 MG tablet Take 1 tablet (25 mg) by mouth every 6 (six) hours if needed for anxiety. 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 (CMS/HCC) 02/23/2025 Severe anxiety 02/23/2025 Assessment & Plan (05/30/2025 9:16 AM EDT): Symptoms improving, no suicidal/homicidal ideas, continue hydroxyzine as needed, provided BH phone number to schedule follow up Chronic [...] Encounters Date Type Department Care Team Description 10/17/2025 1:00 PM EST Office Visit [facility] ADULT D[facility] [address] [place] [address] Lukas Coyne DMD Dental caries (Primary Dx) 10/13/2025 10:30 AM EST Office Visit [facility] ADULT [facility] [address] [place] [address] Lukas Coyne DMD Dental caries (Primary Dx) 10/13/2025 8:45 AM EST Office Visit [facility] ADULT [facility] [address] [place] [address] Yazmin Espinosa Dental calculus (Primary Dx); Dental plaque; Dental caries 08/30/2025 8:30 AM EDT Telemedicine [facility] [address] [place] [address] Harris Hanks MD Infiltrating ductal carcinoma of left breast (CMS/HCC) (HCC) (Primary Dx); Dietary counseling; Exercise counseling 08/30/2025 Travel 08/28/2025 Telephone [facility] [address] [place] [address] Harris Hanks MD chart prep 08/27/2025 Orders Only GENERIC EXTERNAL DATA DEPARTMENT Provider, Generic External Data 08/14/2025 Orders Only GENERIC EXTERNAL DATA DEPARTMENT Provider, Generic External Data from Last 3 Months Immunizations Immunization Administration [...] Sign Reading Time Taken Comments Blood Pressure 126/74 10/13/2025 9:00 AM EST Pulse 78 07/27/2025 3:44 PM EDT Temperature [...] Description 12/04/2025 1:30 PM EST Office Visit [facility] [address], [place] [phone] Harris Hanks MD [address] [place] [address] 04/17/2026 9:30 AM EDT Office Visit [facility] ADULT DENTAL [address], [place] [phone] Yazmin Espinosa Health Maintenance Due Date Last Done Comments HIV Screening 1997 Lipid Panel 1997 Disability Screening 1997 Family Planning (PISQ) 2012 Hepatitis C Screening 2015 Pneumococcal Vaccine: Pediatrics (0 to 5 Years) and At-Risk Patients (6 to 49) Years (1 of 2 - PCV) 2016 HPV/Cotest 04/09/2025 Pap Smear 04/09/2025 04/09/2022 COVID-19 Vaccine ( season) 2025 01/14/2023, 12/12/2022 Influenza Vaccine (#1) 2025 6, 08/17/2012, 10/31/2003 Diagnostic Breast Imaging 08/19/20252024, 07/06/2025, 06/29/2025, Additional history exists Mammogram 08/19/2025 07/19/2025, 06/23, 06/29/2025, Additional history exists Depression Monitoring 08/25/2025 02/23/2025, 025 Dental X-Ray: Bitewings 12/14/2025 12/13/19, 10/12/2024, 01/22/2024 SDOH Screening 12/21/2025 12/21/2024 Alcohol/Substance Use Screening 12/28/2025 12/28/2024 Dental Oral Exam 04/13/2026 10/13/2025, 10/12/2024 Dental Prophylaxis 04/13/2026 10/13/2025, 0 05/25/2025, 02/22/2025, Additional history exists Tobacco Screening 10/17/2026 10/17/2025 Dental X-Ray: Full Mouth 01/22/2027 01/22/2024, 09/23 [...] PRESENTATION, DETAILED AND EXTENSIVE TREATMENT PLANNING Routine 10/17/2025 1:00 PM EST Dental caries 3 LO RESIN-BASED COMPOSITE - 2 SURF, POSTERIOR Routine 10/17/2025 1:00 PM EST Dental caries CASE PRESENTATION, DETAILED AND EXTENSIVE TREATMENT PLANNING Routine 10/13/2025 10:30 AM EST Dental caries 30 DO RESIN-BASED COMPOSITE - 2 SURF, POSTERIOR Routine 10/13/2025 10:30 AM EST Dental caries PERIODIC ORAL EVALUATION - ESTABLISHED PATIENT Routine 10/13/2025 8:45 AM EST Dental caries ORAL HYGIENE INSTRUCTIONS Routine 10/13/2025 8:45 AM EST Dental caries CASE PRESENTATION, DETAILED AND EXTENSIVE TREATMENT PLANNING Routine 10/13/2025 8:45 AM EST Dental caries Full PROPHYLAXIS - ADULT Routine 10/13/2025 8:45 AM EST Dental caries CT HEAD WO CONTRAST Routine 08/27/2025 3 :01 PM EDT URINALYSIS WITH REFLEX MICROSCOPIC Routine 08/27/2025 1:43 PM EDT HCG, TOTAL, QN Routine 08/27/2025 10:44 AM EDT COMPLETE BLOOD COUNT MAN DIF Routine 08/27/2025 10:44 AM EDT CBC WITH AUTO DIFFERENTIAL Routine 08/27/2025 10:44 AM EDT BASIC METABOLIC PANEL Routine 08/27/2025 10:44 AM EDT IR US GUIDE VENOUS ACCESS Routine 08/14/2025 1:11 PM EDT IR CVC INSERT TUNNEL W PRT/REFRIGERATING OILER Routine 08/14/2025 1:04 PM EDT PROTHROMBIN TIME-INR Routine 08/14/2025 11:29 AM EDT HCG, QL, URINE Routine 08/14/2025 9:16 AM EDT BI MAMMOGRAM DIAGNOSTIC TOMOSYNTHESIS LEFT Routine 07/19/2025 2:42 PM EDT BITEWING - SINGLE RADIOGRAPHIC IMAGE Routine 12/13/2024 2:30 PM EST Secondary dental caries associated with failed or defective dental lutheran Dental caries INTRAORAL - COMPLETE SERIES OF RADIOGRAPHIC IMAGES Routine 01/22/2024 11:00 AM EST HM PAP/HPV Routine 04/09/2022 7:50 AM EDT from Last 3 Months or Most Recently Relevant to Health Maintenance Results * CT Head w/o Contrast (08/27/2025 3:01 PM EDT) Anatomical Region Laterality Modality Head, Neck Computed Tomogra phy 08/27/2025 3:01 PM EDT Narrative 08/27/2025 3:02 PM EDT [address] [address] [address] Scan Report Signed Patient: Lori Mejia MR#: [id number] 384 : 1995 Acct:[id number] Age/Sex: 29 / F ADM Date: 08/27/25 Loc: HO.ED Attending Dr: Ordering Physician: Jocelyne Michaud PA-C Date of Service: 08/27/25 Procedure(s): CT head/brain wo IV con Accession Number(s): [id number] cc: Jocelyne Michaud PA-C; Harris Hanks MD Report Number: [id number]: Total DLP = 612.00 mGy-cm Reason for Exam: dizziness, numbness tingling of face CLINICAL HISTORY: dizziness, numbness tingling of face --- Additional Notes or Special Instructions: currently on chemotherapy for breast cancer CT head without contrast Comparison: None available Findings: No acute hemorrhage. No extra-axial fluid collection. No hydrocephalus, mass-effect or herniation. Guillen-white differentiation is maintained. White matter is within normal limits for age. No acute orbital pathology. No acute soft tissue abnormality. No fracture. The visualized paranasal sinuses are predominantly clear. The mastoid air cells are clear. Impression: No acute findings. This document has been electronically signed by: Asmita Alamo MD on 08/27/2025 15:01:36 Dictated By: Asmita Arevalo MD Signed By: <Electronically signed by Asmita Arevalo MD in OV> 08/27/25 1502 DD/ 1501 TD/TT: 08/27/25 1501 Composition Molder: Procedure Note Donotuseinterpreter, Image - 08/27/[address] [address] [address] Scan Report Signed Patient: Lori Mejia JMR#: [id number] 384 : 1995Acct:[id number] Age/Sex: 29 / FADM Date: 08/27/25 Loc: HO.ED Attending Dr: Ordering Physician: Jocelyne Michaud PA-C Date of Service: 08/27/25 Procedure(s): CT head/brain wo IV con Accession Number(s): [id number] cc: Jocelyne Michaud PA-C; Harris Hanks MD Report Number: [id number]: Total DLP = 612.00 mGy-cm Reason for Exam: dizziness, numbness tingling of face CLINICAL HISTORY: dizziness, numbness tingling of face --- AdditionalNotes or Special Instructions: currently on chemotherapy for breast cancer CT head without contrast Comparison: None available Findings: No acute hemorrhage. No extra-axial fluid collection. No hydrocephalus, mass-effect or herniation. Guillen-white differentiation is maintained. White matter is within normal limits for age. No acute orbital pathology. No acute soft tissue abnormality. No fracture. The visualized paranasal sinuses are predominantly clear. The mastoid air cells are clear. Impression: No acute findings. This document has been electronically signed by: Asmita Alamo MD on 08/27/2025 15:01:36 Dictated By: Asmita Arevalo MD Signed By: <Electronically signed by Asmita Arevalo MD in OV> 08/27/25 1502 DD/ 1501 TD/TT: 08/27/25 1501 Composition Molder: [facility] External Provider IMG CT PROCEDURES Edited Result - Final * Urinalysis w/reflex microscopic (08/27/2025 1:43 PM EDT) Color Urine Yellow [facility] Appearance Urine Clear [facility] PH 7.0 5.0 - 9.0 [facility] Glucose Urine UA Negative Negative mg/dL [facility] Urine Blood Negative Negative [facility] Specific [place] - Urine <=1.005 1.005 - 1.025 [facility] Urine Protein Negative Neg-Trace mg/dL [facility] Urine Ketones Negative Negative mg/dL [facility] Nitrite Urine Negative Negative [facility] Leukocyte Esterase Urine Negative Negative [facility] 08/27/2025 1:43 PM EDT 08/27/2025 1:46 PM EDT Narrative [facility] - 08/27/2025 1:53 PM EDT 1341Urine, Clean Catch us Generic External Data Provider LAB URINE ORDERAB LES Final Result [facility] [address] [place] [address] [phone] * (ABNORMAL) Complete Blood Count Manual Diff (08/27/2025 10:44 AM EDT) White Blood Count 6.9 4.8 - 10.8 X10*3/uL [facility] Red Blood Count 4.17(L) 4.20 - 5.50 X10*6/uL [facility] Hemoglobin 12.4 12.0 - 16.0 g/dl [facility] Hematocrit 36.7(L) 37.0 - 47.0 % [facility] Mean Corpuscular Volume 88.0 80.0 - 98.0 fL [facility] Mean Corpuscular Hemoglobin 29.7 27.0 - 33.0 pg [facility] Mean Corpuscular HGB Conc 33.8 31.0 - 35.0 g/dl [facility] Red Cell Distribution Width 13.5 11.0 - 16.0 % [facility] Platelet Count 226 160 - 400 X10*3/uL [facility] Mean Platelet Volume 9.7 9.4 - 12.3 fL [facility] NRBC Pct Auto 0.0 0.0 - 0.2 /100WBC [facility] NRBC Abs Auto 0.000 0.0 - 0.012 X10*3/uL [facility] Neutrophils % Manual 81(H) 45 - 73 % [facility] Band Neutrophils Percent 0(L) 3 - 5 % [facility] Lymphocytes Percent Manual 17(L) 20 - 40 % [facility] EOSINOPHILS % MANUAL 2 0 - 4 % [facility] NEUTROPHILS ABSOLUTE MANUAL 5.6 2.0 - 8.3 X10*3/uL [facility] LYMPHOCYTES ABSOLUTE MANUAL 1.2 1.2 - 4.9 X10*3/uL [facility] EOSINOPHILS ABSOLUTE MANUAL 0.1 0.0 - 0.4 X10*3/uL [facility] Platelet Estimate NORMAL NORMAL [facility] Platelet Morphology Comment NORMAL [facility] RBC Morphology NORMAL [facility] 08/27/2025 10:4 4 AM EDT 08/27/2025 10:50 AM EDT us Generic External Data Provider LAB BLOOD ORDERAB LES Final Result [facility] [address] [place] [phone] * (ABNORMAL) CBC auto differential (08/27/2025 10:44 AM EDT) White Blood Count 6.9 4.8 - 10.8 X10*3/uL [facility] Red Blood Count 4.17(L) 4.20 - 5.50 X10*6/uL [facility] Hemoglobin 12.4 12.0 - 16.0 g/dl [facility] Hematocrit 36.7(L) 37.0 - 47.0 % [facility] Mean Corpuscular Volume 88.0 80.0 - 98.0 fL [facility] Mean Corpuscular Hemoglobin 29.7 27.0 - 33.0 pg [facility] Mean Corpuscular HGB Conc 33.8 31.0 - 35.0 g/dl [facility] Red Cell Distribution Width 13.5 11.0 - 16.0 % [facility] Platelet Count 226 160 - 400 X10*3/uL [facility] Mean Platelet Volume 9.7 9.4 - 12.3 fL [facility] Neutrophils Percent Auto 70.6 45 - 73 % [facility] Imm Gran Pct Auto 10.0(H) 0.0 - 0.4 % [facility] Lymphocytes Percent Auto 16.4(L) 20 - 40 % [facility] Monocytes Percent Auto 0.3(L) 2 - 11 % [facility] Eosinophils Percent Auto 1.7 0 - 4 % [facility] Basophils Percent Auto 1.0 0 - 2 % [facility] NRBC Pct Auto 0.0 0.0 - 0.2 /100WBC [facility] Neutrophils Absolute Auto 4.8 2.0 - 8.3 x10*3/uL [facility] Imm Gran Abs Auto 0.69(H) 0.00 - 0.03 X10*3/uL [facility] Lymphocytes Absolute Auto 1.1(L) 1.2 - 4.9 X10*3/uL [facility] Monocytes Absolute Auto 0.0(L) 0.1 - 1.2 X10*3/uL [facility] Eosinophils Absolute Auto 0.1 0.0 - 0.4 X10*3/uL [facility] Basophils Absolute Auto 0.1 0.0 - 0.2 X10*3/uL [facility] NRBC Abs Auto 0.000 0.0 - 0.012 X10*3/uL [facility] 08/27/2025 10:4 4 AM EDT 08/27/2025 10:50 AM EDT us Generic External Data Provider LAB BLOOD ORDERAB LES Edited Result - Final [facility] [address], [place] [phone] * hCG, Total, Quantitative (08/27/2025 10:44 AM EDT) HCG Quantitative <2 mIU/mL [facility] Comment:Weeks post LMP Appro ximate hCG(Last Menstrual Period) Range (mIU/ml)3 - 4 weeks 9 - 1304 - 5 weeks 75 - 2,6005 - 6 weeks 850 - 20,8006 - 7 weeks 4000 - 100,2007 - 12 weeks 11,500 - 289,35483 - 16 weeks 18,300 - 137,29257 - 29 weeks (2nd trimester) 1,400 - 53,75080 - 41 weeks (3rd trimester) 940 - 60,000The Tracy B- hCG assay is used for the early detection ofpregnancy; it cannot be used to diagnose any conditionunrelated to . If a B-hCG level is not supportedby the clinical evidence, results should be confirmed by analternative method (qualitative urine hCG, for example). 08/27/2025 10:4 4 AM EDT 08/27/2025 10:50 AM EDT us Generic External Data Provider LAB BLOOD ORDERAB LES Final Result [facility] [address] [place] [phone] * Basic Metabolic Panel (08/27/2025 10:44 AM EDT) Sodium 138 135 - 145 mmol/L [facility] Potassium 3.8 3.3 - 5.1 mmol/L [facility] Chloride 105 96 - 108 mmol/L [facility] Carbon Dioxide 25 22 - 29 mmol/L [facility] Anion Gap 12 12 - 20 [facility] Urea Nitrogen (BUN) 9 9 - 16 mg/dL [facility] Creatinine, Serum 0.58 0.5 - 1.4 mg/dL [facility] Creatinine Clr Calc Pharmacy 154.7 [facility] Comment:Provided height and weight: 165.1 cm,82.7 kg.eGFR (calculated from the MDRD study equation) and eCrCl(calculated from the Cockcroft-Gault equation) are based ondifferent parameters and may not yield comparable results.If eCrCl result is absurd, please check patient'sheight/weight. Estimated Glomerular Filt Rate >60 [facility] Comment:Chronic Kidney Disea se: Estimated GFR < 60 mL/min/1.16i3Bappdz Kidney Disease: Estimated GFR < 15 mL/min/1.73m2 Glucose 99 60 - 115 mg/dL [facility] Calcium 9.4 8.4 - 10.2 mg/dL [facility] 08/27/2025 10:4 4 AM EDT 08/27/2025 10:50 AM EDT us Generic External Data Provider LAB BLOOD ORDERAB LES Final Result Performing Organization Address City/State/[facility] Co de Phone Number [facility] [address] [place] [phone] * IR US Guide - Venous Access (08/14/2025 1:11 PM EDT) Anatomical Region Laterality Modality X-Ray Angiograph y 08/14/2025 1:11 PM EDT Narrative 09/13/2025 10:49 AM EDT [place] [address] Interventional Radiology Rpt Signed Patient: Lori Mejia MR#: [id number] : 1995 Acct:[id number] Age/Sex: 29 / F ADM Date: 08/14/25 Loc: [facility] Attending Dr: Toshia Lacey MD Ordering Physician: Toshia Lacey MD Date of Service: 08/14/25 Procedure(s): IR us guide venous access Accession Number(s): [id number] cc: Harris Hanks MD; Toshia Lacey MD Reason for Exam: PORT INSERTION PROCEDURE: IR INSERTION OF TUNNEL CATHETER under [...] in SVC and needle withdrawn. A 5 Malian dilator was then advanced over the guidewire [...] 0.035 J-wire was placed through the 5 Malian dilator into the IVC under fluoroscopy guidance. The tract was dilated with a 5 6 Malian dilator. 7 Malian dilator sheath was introduced over the guidewire. [...] jugular vein. Approximately 25 cm long 6.6 Malian port catheter was inserted under fluoroscopy and ultrasound. The tip of the catheter lies in mid SVC. The catheter was flushed with heparinized saline. The catheter can be used 1 week from the time of insertion. IR/IR us guide venous access IMPRESSION: Successful ultrasound and fluoroscopy-guided placement of a 6.6 Malian 25 cm long PORT catheter. The catheter can be used in 1 week's time. Electronically signed by: Javed Turner MD 08/17/2025 01:39 PM EDT RP Dictated By: Javed Turner MD Signed By: <Electronically signed by Javed Turner MD in OV> 09/13/25 1048 DD/ 1311 TD/TT: 08/14/25 1502 Composition Molder: [facility] Procedure Note Donotuseinterpreter, Image - 09/13/2025 [place] [address] Interventional Radiology Rpt Signed Patient: Lori Mejia JMR#: [id number] : 1995Acct:[id number] Age/Sex: 29 / FADM Date: 08/14/25 Loc: [facility] Attending Dr: Toshia Lacey MD Ordering Physician: Toshia Lacey MD Date of Service: 08/14/25 Procedure(s): IR us guide venous access Accession Number(s): [id number] cc: Harris Hanks MD; Toshia Lacey MD Reason for Exam: PORT INSERTION PROCEDURE: IR INSERTION OF TUNNEL CATHETER under [...] in SVC and needle withdrawn. A 5 Malian dilator was then advanced over the guidewire [...] 0.035 J-wire was placed through the 5 Malian dilator into the IVC under fluoroscopy guidance. The tract was dilated with a 5 6 Malian dilator. 7 Malian dilator sheath was introduced over the guidewire. [...] jugular vein. Approximately 25 cm long 6.6 Malian port catheter was inserted under fluoroscopy and ultrasound. The tip of the catheter lies in mid SVC. The catheter was flushed with heparinized saline. The catheter can be used 1 week from the time of insertion. IR/IR us guide venous access IMPRESSION: Successful ultrasound and fluoroscopy-guided placement of a 6.6 Malian 25 cm long PORT catheter. The catheter can be used in 1 week's time. Electronically signed by: Javed Turner MD 08/17/2025 01:39 PM EDT Dictated By: Javed Turner MD Signed By: <Electronically signed by Javed Turner MD in OV> 09/13/25 1048 DD/ 1311 TD/TT: 08/14/25 1502 Composition Molder: [facility] us [facility] External Provider IMG IR PROCEDURES Final Result * IR cvc insert tunnel w prt/central supply tech (08/14/2025 1:04 PM EDT) Anatomical Region Laterality Modality X-Ray Angiograph y 08/14/2025 1:04 PM EDT Narrative 08/17/2025 1:42 PM EDT [place] [address] Interventional Radiology Rpt Signed Patient: Lori Mejia MR#: [id number] 384 : 1995 Acct:[id number] Age/Sex: 29 / F ADM Date: 08/14/25 Loc: [facility] Attending Dr: Toshia Lacey MD Ordering Physician: Toshia Lacey MD Date of Service: 08/14/25 Procedure(s): IR cvc insert tunnel w prt/central supply tech Accession Number(s): [id number] cc: Harris Hanks MD; Toshia Lacey MD [...] in SVC and needle withdrawn. A 5 Malian dilator was then advanced over the guidewire [...] 0.035 J-wire was placed through the 5 Malian dilator into the IVC under fluoroscopy guidance. The tract was dilated with a 5 6 Malian dilator. 7 Malian dilator sheath was introduced over the guidewire. [...] jugular vein. Approximately 25 cm long 6.6 Malian port catheter was inserted under fluoroscopy and ultrasound. The tip of the catheter lies in mid SVC. The catheter was flushed with heparinized saline. The catheter can be used 1 week from the time of insertion. IR/IR cvc insert tunnel w prt/central supply tech IMPRESSION: Successful ultrasound and fluoroscopy-guided placement of a 6.6 Malian 25 cm long PORT catheter. The catheter can be used in 1 week's time. Electronically signed by: Javed Turner MD 08/17/2025 01:39 PM EDT RP Dictated By: Javed Turner MD Signed By: <Electronically signed by Javed Turner MD in OV> 09/13/25 1048 DD/ 1304 TD/TT: 08/14/25 1502 Composition Molder: [facility] Procedure Note Donotuseinterpreter, Image - 09/13/2025 [place] [address] Interventional Radiology Rpt Signed Patient: Lori Mejia R#: [id number] : 1995Acct:[id number] Age/Sex: 29 / FADM Date: 08/14/25 Loc: .[facility] Attending Dr: Toshia Lacey MD Ordering Physician: Toshia Lacey MD Date of Service: 08/14/25 Procedure(s): IR cvc insert tunnel w prt/central supply tech Accession Number(s): [id number] cc: Harris Hanks MD; Toshia Lacey MD [...] in SVC and needle withdrawn. A 5 Malian dilator was then advanced over the guidewire [...] 0.035 J-wire was placed through the 5 Malian dilator into the IVC under fluoroscopy guidance. The tract was dilated with a 5 6 Malian dilator. 7 Malian dilator sheath was introduced over the guidewire. [...] jugular vein. Approximately 25 cm long 6.6 Malian port catheter was inserted under fluoroscopy and ultrasound. The tip of the catheter lies in mid SVC. The catheter was flushed with heparinized saline. The catheter can be used 1 week from the time of insertion. IR/IR cvc insert tunnel w prt/central supply tech IMPRESSION: Successful ultrasound and fluoroscopy-guided placement of a 6.6 Malian 25 cm long PORT catheter. The catheter can be used in 1 week's time. Electronically signed by: Javed Turner MD 08/17/2025 01:39 PM EDT RP Dictated By: Javed Turner MD Signed By: <Electronically signed by Javed Turner MD in OV> 09/13/25 1048 DD/ 1304 TD/TT: 08/14/25 1502 Composition Molder: [facility] External Provider IMG IR PROCEDURES Edited Result - Final * Prothrombin Time-INR (08/14/2025 11:29 AM EDT) Prothrombin Time 11.1 10.9 - 12.4 SEC [facility] INTERNATIONAL NORM RATIO 1.0 0.9 - 1.1 [facility] Comment:INTERNATIONAL NORMAL IZED RATIO (INR) [...] Provider LAB BLOOD ORDERAB LES Final Result [facility] [address] [place] [phone] * HCG, Qualitative, Urine (08/14/2025 9:16 AM EDT) Urine NEGATIVE NEGATIVE [facility] Comment:This test was develo ped to detect early . Falsenegative results may occur after the 5th - 7th week ofpregnancy when using this test method. If clinicallyindicated, consider a serum hCG. 08/14/2025 9:16 AM EDT 08/14/2025 11:09 AM EDT us Generic External Data Provider LAB URINE ORDERAB LES Final Result Performing Organization Address City/State/[facility] Co de Phone Number [facility] [address] [place] [phone] * BI Mammogram Diagnostic Tomosynthesis Left (07/19/2025 2:42 PM EDT) Anatomical Region Laterality Modality Breast Left Mammography 07/19/2025 2:42 PM EDT Narrative 07/20/2025 12:41 PM EDT [facility] [address] [place] [address] Mammography Report Signed with Lalitha Patient: Lori Mejia MR#: [id number] : 1995 Acct:[id number] Age/Sex: / F ADM Date: 07/19/25 Loc: HO.MAMMO Attending Dr: Zach Zheng MD Ordering Physician: Zach Zheng MD Results: Date of Service: 07/19/25 Follow Up: Procedure(s): MM tomosynthesis diagnostic LT Accession Number(s): [id number] cc: Harris Hanks MD; Zach Zheng MD [...] 07/20/25 1238 DD/ 1442 TD/TT: 07/19/25 1545 Composition Molder: Procedure Note Donotuseinterpreter, Image - 07/28/2025 [facility] [address] [place] [address] Mammography Report Signed with Addenda Patient: Lori Mejia R#: [id number] : 1995Acct:[id number] Age/Sex: Date: 07/19/25 Loc: HO.MAMMO Attending Dr: Zach Zheng MD Ordering Physician: Zach Zhengults: Date of Service: 07/19/25Follow Up: Procedure(s): MM tomosynthesis diagnostic LT Accession Number(s): [id number] cc: Harris Hanks MD; Zach Zheng MD [...] 07/20/25 1238 DD/ 1442 TD/TT: 07/19/25 1545 Composition Molder: [facility] External Provider ALBERT BI PROCEDURES Edited Result - Final * HM PAP/HPV (04/09/2022 7:50 AM EDT) Historical Provider HEALTH MAINTENANCE Final Result from Last 3 Months or Most Recently Relevant to Health Maintenance Insurance [facility] , [facility] [address] [place] [address] [facility] MEDICAID [facility] ADULT Care Teams Director Pharmacology Relationship Specialty Start Date End Date Harris Hanks MD [address] [place] [address] PCP - General Internal Medicine 11/10/24
--- OUTSIDE RECORDS SUMMARY | 2025-10-30 07:53 | XMS_ITS | Encounter Summary ---
Author Organization [employer] Address [address] [facility] 7 [place] [address] Care Team Providers Care Malthouse Laborer Name Role Phone aHrris Hanks MD Primary Care Prov ider Encounter Details Date Type Department Care Team ([facility] st Contact Info) Description 01/06/2025 Orders Only [facility] MED & PEDS [address] [place], [place] [phone] Harris Hanks MD [address] [place], [place] [phone] Social History Tobacco Use Types Packs/Day Years [...] Description 12/04/2025 1:30 PM EST Office Visit [facility] MED & PEDS [address] [place] [address] Harris Hanks MD [address] [place] [address] 04/17/2026 9:30 AM EDT Office Visit [facility] ADULT DENTAL [address] [place] [address] Yazmin Espinosa documented as of this encounter Visit Diagnoses Not on filedocumented in this encounter Additional Health Concerns Assessment Noted Time PHQ-9 Depression Total Score: 4 12/28/19 25 11:24 AM EST documented as of this encounter Care Teams Malthouse Laborer Relationship Specialty Start Date End Date Harris Hanks MD [address] [place] [address] PCP - General Internal Medicine 11/10/24 documented as of this encounter
--- OUTSIDE RECORDS SUMMARY | 2025-10-30 07:54 | XMS_ITS | Encounter Summary ---
Author Organization [employer] Address [address] [facility] [address] [place] [address] Care Team Providers Care Automotive Engineering Teacher Name Role Phone Harris Hanks MD Primary Care Prov ider Encounter Details Date Type Department Care Team (Late st Contact Info) Description 12/27/2024 Orders Only [facility] MEDICINE [address] [place] [address] Provider, MD Gin Social History Tobacco Use [...] Author Not at all 12/28/2024 11:24 AM Grarick Sherwood [place] * Patient Health Questionnaire-9 Score [...] Description 12/04/2025 1:30 PM EST Office Visit [facility] MED & PEDS [address] [place] [address] Harris Hanks MD [address] [place] [address] 04/17/2026 9:30 AM EDT Office Visit [facility] ADULT DENTAL [address] [place] [address] Yazmin Espinosa documented as of this encounter Procedures Procedure Name Priority Date/Time Associated Diagnosis Comments HM PAP/HPV Routine 04/09/2022 7:50 AM EDT documented in this encounter Results * HM PAP/HPV (04/09/2022 7:50 AM EDT) us Historical Provider HEALTH MAINTENANCE Final Result documented in this encounter Visit Diagnoses Not on filedocumented in this encounter Care Teams Automotive Engineering Teacher Relationship Specialty Start Date End Date Harris Hanks MD [address] [place] [address] PCP - General Internal Medicine 11/10/24 documented as of this encounter
== END 2025-10-30 07:49 | disposition home or self-care (01) ==
LOC: HO.MAMMO 07:48
PROVIDERS: PCP Internal Medicine; Visit Provider Internal Medicine
DX: C50.812 Malignant neoplasm of overlapping sites of left female breast (principal); R92.8 Other abnormal and inconclusive findings on diagnostic imaging of breast
CPT/HCPCS: 76642; 77062; 77065

== ENCOUNTER → 2025-10-30 08:00 | Outpatient (BNV) | payer OTHER, SELFPAY | PROVIDERS: PCP Internal Medicine; Visit Provider Radiology Body Imaging | DX: C50.812 Malignant neoplasm of overlapping sites of left female breast (principal) | CPT/HCPCS: 76642; 77061; 77065 ==

== ENCOUNTER 2025-11-20 12:41 | Emergency (ER) | payer OTHER, MEDICAID, SELFPAY ==
[2025-11-20 13:50] VITALS: BP 121/65; PULSE 68; RESP 18; TEMP 36.6; O2SAT 100; BMI 31.6
--- NOTE | 2025-11-20 13:51 | ED.GENADULT ---
HPI - General Adult General Chief complaint: Nausea/Vomiting/Diarrhea Stated complaint: vomitting, oncology pt Time Seen by Provider: 11/20/25 15:44 Source: patient and family (patient's ) Mode of arrival: wheelchair Limitations: no limitations History of Present Illness ED Provider: Lyubov Lucio PA-C HPI narrative: Patient is a 30 year old female with a history of breast cancer currently on chemo and following with [facility] oncology presenting to the emergency department today with nausea, vomiting, and nasal congestion. Patient states that over the last few days she has felt generally unwell with nasal congestion, nausea, and vomiting. Patient states that she has been able to keep some sips of things down but thought she should be evaluated. Patient denies any other complaints at this time. Onset (ago): day(s) Relieving factors: none Exacerbating factors: none Associated symptoms: nausea/vomiting Treatments prior to arrival: none Related Data Previous Rx's ?Medication ?Instructions ?Recorded dexamethasone 4 mg tablet 4 mg PO BID #30 tabs 08/09/25 omeprazole 20 mg capsule,delayed 20 mg PO DAILY #30 caps 08/25/25 release ondansetron 8 mg disintegrating 8 mg PO Q8H PRN Nausea And 09/05/25 tablet Vomiting #30 tabs cholecalciferol (vitamin D3) 25 25 mcg PO DAILY #30 tabs 11/17/25 mcg (1,000 unit) chewable tablet (Vitamin D3) Allergies Allergy/AdvReac Type Severity Reaction Status Date / Time TUNA FISH Allergy Unknown SWELLING Uncoded 11/20/25 13:54 Review of Systems Constitutional: Constitutional: Reports as per HPI Eyes: Eyes: Reports as per HPI ENT: Reports as per HPI Cardiovascular: Cardiovascular: Reports as per HPI Respiratory: Respiratory: Reports as per HPI Gastrointestinal: Gastrointestinal: Reports as per HPI Genitourinary: Genitourinary: Reports as per HPI Musculoskeletal: Musculoskeletal: Reports as per HPI Integumentary/Breasts: Skin/Breast: Reports as per HPI Neurologic: Reports as per HPI Psychiatric: Psychiatric: Reports as per HPI Endocrine: Endocrine: Reports as per HPI Hematologic/Lymphatic: Hematologic/Lymphatic: Reports as per HPI Allergic/Immunologic: Allergic/Immunologic: Reports as per HPI [facility] Past Medical History Attestation statement: The following information was validated with the patient. (all information validated with the patient's ) Source: old records reviewed, obtained from family (patient's provided additional history and confirmed the history provided by the patient. ) and nursing notes reviewed Family History Family History Maternal Aunt Breast cancer, Onset Age: 40 Mother Cystic breast Father Diabetes HTN (hypertension) Paternal Grandmother Diabetes Paternal Grandfather Liver cancer Social History Social History Household Members: Spouse and Family Are you a primary child care worker to a significant other at home: No Do you presently have visiting nurse or other home services: No Patient Tobacco Use Status: Never used Tobacco Substance Use Type: Marijuana Advance Directives: No Advance Directives Information Provided: No Do you have a plan to hurt others: No Plan service: No Current occupational status: employed Physical Exam ED Vital Signs: Vital Signs - 24 hr 11/20/25 13:50 11/20/25 15:45 Temperature 98 F 98.2 F Pulse Rate 68 66 Respiratory Rate 18 18 Blood Pressure 121/65 132/74 Pulse Oximetry 100 98 Oxygen Delivery Method Room Air Room Air BMI result Body Mass Index 31.6 Const General: cooperative, alert and awake Orientation/consciousness: patient oriented x3 HENMT Head: Yes normal to inspection and Yes atraumatic Ears: hearing grossly normal bilaterally and external ears normal General nose exam: Normal external nose present, no nasal discharge noted and no epistaxis Face and sinus: Yes normal facial exam, No abrasion and No laceration Mouth: Normal oral and palatal mucosa present, no drooling and no muffled voice Eyes General: appearance normal, both eyes and all related structures Periorbital: periorbital findings normal Eyelids: Yes eyelids normal Conjunctivae: conjunctivae normal Pupils: Equal, round and reactive pupils present EOM: EOMs intact bilaterally Resp Effort & Inspection: normal respiratory effort and able to speak in complete sentences Neuro General: patient oriented x3, moves all extremities and CN's II-XI intact bilaterally Cranial nerves: Yes Equal, round and reactive pupils present Cognition (Neuro): normal cognition Extrem General: Yes full ROM Psych Appearance: grossly normal Mental Status: mental status grossly normal Attitude: cooperative Course Course Course Narrative: Rapid medical examination performed in triage by Lyubov Lucio PA-C: Patient is a 30 year old female presenting to the emergency department with nausea, vomiting, and feeling generally unwell. Patient states she is currently on chemo for breast cancer. Detailed physical exam and review of systems are deferred to the respiratory clinician. Labs and swabs ordered. Patient placed back in the waiting room pending room availability and results. Medical Decision Making Medical Decision Making [facility] Narrative: Patient is a 30 year old female with a history of breast cancer currently on chemo and following with [facility] oncology presenting to the emergency department today with nausea, vomiting, and nasal congestion. Patient's physical exam was as noted in the physical exam portion of this note. Patient's blood work was unremarkable. Patient's COVID-19 and RSV testing was negative. Patient's influenza testing is positive. I explained my physical exam findings as well as all test results to the patient and the patient's . I answered all questions asked by the patient and the patient's . Patient stated that she feels comfortable discharging home with continued PO hydration and has Zofran at home. I stressed the importance of the patient taking her medication as directed (either prescribed or as the over the counter packaging recommends). I stressed the importance of the patient following up with her primary care provider. I stressed the importance of the patient returning to the emergency department immediately if her symptoms were to worsen or if she were to develop any dizziness, shortness of breath, difficulty breathing, chest pain, blurry vision, loss of vision, nausea, vomiting, abdominal pain, fever, chills, back pain, or any other complaints. Patient and the patient's verbalized agreement and understanding with this treatment plan and discharge. Differential Diagnosis Differential Diagnoses: The differential diagnosis associated with the presentation includes Influenza Viral illness Gastroenteritis Admission/Observation Consideration of admission/observation: Escalation of care including admission/observation considered Patient would have been admitted to the hospital had her work up had any findings where hospital admission was appropriate and her clinical presentation warranted hospital admission. Lab Data [facility] Lab Attestation statement: I reviewed the patient's lab results. My interpretation of these results are in the MDM Rationale portion of this note. 11/20/25 14:46 11/20/25 14:46 Labs: Lab Results 11/20/25 Range/Units 14:46 WBC 5.0 (4.8-10.8) X10*3/uL RBC 3.84 L (4.20-5.50) X10*6/uL Hgb 11.8 L (12.0-16.0) g/dl Hct 35.5 L (37.0-47.0) % MCV 92.4 (80.0-98.0) fL MCH 30.7 (27.0-33.0) pg MCHC 33.2 (31.0-35.0) g/dl RDW 15.7 (11.0-16.0) % Plt Count 234 (160-400) X10*3/uL MPV 9.3 L (9.4-12.3) fL Immature Gran % (Auto) 0.6 H (0.0-0.4) % Neut % (Auto) 81.5 H (45-73) % Lymph % (Auto) 13.1 L (20-40) % [place] % (Auto) 4.0 (2-11) % Eos % (Auto) 0.4 (0-4) % Baso % (Auto) 0.4 (0-2) % Lymph # (Auto) 0.7 L (1.2-4.9) X10*3/uL [place] # (Auto) 0.2 (0.1-1.2) X10*3/uL Eos # (Auto) 0.0 (0.0-0.4) X10*3/uL Baso # (Auto) 0.0 (0.0-0.2) X10*3/uL Abs Immat Gran (auto) 0.03 (0.00-0.03) X10*3/uL Absolute Neuts (auto) 4.1 (2.0-8.3) x10*3/uL Absolute Nucleated RBC 0.000 (0.0-0.012) X10*3/uL Nucleated RBC % (auto) 0.0 (0.0-0.2) /100WBC Sodium 142 (135-145) mmol/L Potassium 4.1 (3.3-5.1) mmol/L Chloride 106 (96-108) mmol/L Carbon Dioxide 27 (22-29) mmol/L Anion Gap 13 (12-20) BUN 4 L (9-16) mg/dL Creatinine 0.56 (0.5-1.4) mg/dL Estim Creat Clear Calc 162.1 Estimated GFR > 60 Random Glucose 96 (60-115) mg/dL Calcium 9.7 (8.4-10.2) mg/dL Magnesium 2.2 (1.6-2.6) mg/dL Total Bilirubin 0.3 (0.0-1.0) mg/dL AST 24 (5-31) U/L ALT 32 H (0-31) U/L Alkaline Phosphatase 57 (39-117) U/L Total Protein 8.0 (6.5-8.0) g/dL Albumin 4.7 (3.5-5.0) g/dL Beta HCG, Quant 5 mIU/mL Influenza Type A (PCR) POSITIVE A (Negative) Influenza Type B (PCR) NEGATIVE (Negative) RSV RNA Qual (PCR) NEGATIVE (Negative) SARS-CoV-2 RNA (RT-PCR) NEGATIVE (Negative) Independent Historian Clinical information obtained from an independent historian. History obtained from or confirmed by: Spouse (patient's provided additional history and confirmed the history provided by the patient. ) External Record Review External record reviewed: Office record (reviewed oncology notes) Prescription Management I considered prescription management with: Antiviral (I considered prescribing tamiflu however, the patient is currently out of the treatment window. ) Discharge Plan Discharge Clinical Impression: Influenza Patient Disposition: Home, Self-Care Instructions: Influenza (DC) Additional Instructions: Your lab work is reassuring. You are influenza positive. IF you are prescribed home medications and/or you are taking over the counter medications at home - it is very important you continue to do so as prescribed / directed unless told otherwise by a healthcare provider. Follow up with your primary care provider and your oncologist. Do your best to stay well hydrated and rest. Return to the emergency department immediately if your symptoms worsen or if you develop any numbness, tingling, dizziness, shortness of breath, difficulty breathing, chest pain, blurry vision, loss of vision, nausea, vomiting, abdominal pain, fever, chills, back pain, or any other complaints. If you do not have a primary care provider - call any of the below numbers to establish and follow up with a primary care provider. [facility] Primary Care ([place]) [phone] [place] [address], [address] [facility] Primary Care ([facility]) [phone] [place] [address], [facility] [address] [facility], [address] [facility] Primary Care ([address] [place]) [phone] [place] [address], [address] [place], [address] [facility] Primary Care ([place]) [phone] [place] [address], [address] [place], [address] [facility] Family Medicine [phone] [address] [facility], [address] Please see the information below about our Patient Portal. If you are not yet enrolled in the [facility] Patient Portal, you will receive an enrollment email invitation following your visit to any [facility] care setting. You may also self-enroll in the Patient Portal by visiting our website: [email or web address] The following information is required to access the Patient Portal: - Your [facility] Medical Record Number - Your personal home email address (must match what is in your electronic medical record, Registration staff can assist with this) - Name - Date of Capabilities of the Patient Portal: - Message some providers - View upcoming appointments - Access your health summary, medical history, and visit history - View current conditions and allergies - View procedure and lab results - View your medications, including guidelines, side effects, and precautions - Complete pre-appointment questionnaires requested by your provider - Ready summary reports of your office visits and procedures To access the Patient Portal Mobile [employer], follow these directions: - Search [employer] in the [employer] Store or myThings Store - Download the [employer] - Search for [facility] - Enter your login/password Prescriptions: No Action dexamethasone 4 mg Tablet 4 mg PO BID Qty: 30 0RF Rx Instructions: Take 4 mg (1 tab) twice a day for 3 days after chemotherapy omeprazole 20 mg Capsule,Delayed Release(Dr/Ec) 20 mg PO DAILY Qty: 30 0RF Rx Instructions: Take it on empty stomach in the morning 30-45 minutes before eating or drinking. ondansetron 8 mg Tablet,Disintegrating 8 mg PO Q8H PRN (Reason: Nausea And Vomiting) Qty: 30 2RF cholecalciferol (vitamin D3) [Vitamin D3] 25 mcg (1,000 unit) Tablet,Chewable 25 mcg PO DAILY Qty: 30 3RF Interventions: ED Discharge Assessment Last Done: 11/20/25 15:45 Discharge Date/Time: 11/20/25 15:51 Print Language: Uzbek
[2025-11-20 14:51] LABS: MANUAL DIFF FLAG NO
[2025-11-20 14:55] LABS: Hematocrit 35.5 % (37.0-47.0); Hemoglobin 11.8 g/dl (12.0-16.0); Imm Gran Abs Auto 0.03 X10*3/uL (0.00-0.03); Imm Gran Pct Auto 0.6 % (0.0-0.4); Lymphocytes Absolute Auto 0.7 X10*3/uL (1.2-4.9); Mean Corpuscular HGB Conc 33.2 g/dl (31.0-35.0); Mean Corpuscular Hemoglobin 30.7 pg (27.0-33.0); Mean Corpuscular Volume 92.4 fL (80.0-98.0); NRBC Abs Auto 0.000 X10*3/uL (0.0-0.012); NRBC Pct Auto 0.0 /100WBC (0.0-0.2); Platelet Count 234 X10*3/uL (160-400); Red Blood Count 3.84 X10*6/uL (4.20-5.50); White Blood Count 5.0 X10*3/uL (4.8-10.8)
[2025-11-20 15:08] LABS: Alanine Aminotransferase 32 U/L (0-31); Albumin Level 4.7 g/dL (3.5-5.0); Alkaline Phosphatase 57 U/L (39-117); Anion Gap 13 (12-20); Aspartate Amino Transferase 24 U/L (5-31); Blood Urea Nitrogen 4 mg/dL (9-16); Calcium 9.7 mg/dL (8.4-10.2); Carbon Dioxide 27 mmol/L (22-29); Chloride 106 mmol/L (96-108); Creatinine Clr Calc Pharmacy 162.1; Estimated Glomerular Filt Rate > 60; Magnesium 2.2 mg/dL (1.6-2.6); Potassium 4.1 mmol/L (3.3-5.1); Sodium 142 mmol/L (135-145); Total Protein 8.0 g/dL (6.5-8.0)
[2025-11-20 15:29] LABS: Resp Syncy Virus RNA Qual PCR NEGATIVE (Negative); SARS COV2 PCR INHOUSE NEGATIVE (Negative)
[2025-11-20 15:45] VITALS: BP 132/74; PULSE 66; RESP 18; TEMP 36.8; O2SAT 98
--- OUTSIDE RECORDS SUMMARY | 2025-11-20 17:43 | XMS_ITS | Encounter Summary ---
Author Organization [employer] Address [address] [facility] 7t [place] [address] Care Team Providers Care Quality Assurance/R&D Lab Technician Name Role Phone Harris Hanks MD Primary Care Prov ider Encounter Details Date Type Department Care Team (Late st Contact Info) Description 12/28/2024 Orders Only [facility] MEDICINE [address] [place] [address] Harris Hanks MD [address] [place] [address] Social History Tobacco Use Types Packs/Day Years [...] 12/04/2025 1:30 PM EST Office Visit [facility] MED & PEDS [address] [place] [address] Harris Hanks MD [address] [place] [address] 04/17/2026 9:30 AM EDT Office Visit [facility] ADULT DENTAL [address] [place] [address] Yazmin Espinosa documented as of this encounter Visit Diagnoses Not on filedocumented in this encounter Additional Health Concerns Assessment Noted Time PHQ-9 Depression Total Score: 4 12/28/19 25 11:24 AM EST documented as of this encounter Care Teams Quality Assurance/R&D Lab Technician Relationship Specialty Start Date End Date Harris Hanks MD [address] [place] [address] PCP - General Internal Medicine 11/10/24 documented as of this encounter
--- OUTSIDE RECORDS SUMMARY | 2025-11-20 17:43 | XMS_ITS | Data Portability ---
Author Organization [facility], [facility] Address [address] [place] [address] Assessment Encounter Date Assessment Date Assessment LastModified by Organization Details LastModified Time 02/08/2024 02/08/2024 A: Pt completed all ther ex's without progressing pain but required vc for proper form. Responded well to manual therapy without increased pain symptoms. P: Continue Poc [email or web address] Not available 02/08/2024 18:39:02 02/15/2024 02/15/2024 A: Secondary to patient unable to kneel on her left knee, she was unable to perform exercises in a quadruped position. Responding well to manual therapy. P: Continue Poc [email or web address] Not available 02/15/2024 18:36:00 02/22/2024 02/22/2024 A: At this time the patient isn't experiencing any LBP. She was able to complete the program with proper form. Per the patients request, she will continue with an independent hep. P: Pt d/c to independent hep [email or web address] Not available 02/22/2024 18:18:11 Plan of Treatment Reminders Order Date Submit Date Provider Name Organization Details Last Modified By Last Modified Time Details Appointments None record ed. Lab None record ed. Referral None record ed. Procedures None record ed. Surgeries None record ed. Imaging None record ed. MedicationOrders None record ed. VaccineOrders None record ed. Patient TargetsNo targets recorded. Patient InstructionsNo instructions recorded. Reason for Referral None Reported. Procedures Surgical History Date Name Laterality Status Provider Name and Address Organization Details Recorded Time 4 09156 Therapeutic Exercise (1:1) completed Yesenia Blunt, RENEE [address], [place], [address], [facility] 02/22/2024 18:07:13 4 97186: Manual therapy completed Yesenia Blunt PTA [address], [place], [address], [facility] 02/19/2024 13:20:04 4 51838 Therapeutic Exercise (1:1) completed Yesenia Blunt PTA [address], [place], [address], [facility] 02/15/2024 18:36:41 4 31240: Manual therapy completed Yesenia Blunt PTA [address], [place], [address], [facility] 02/12/2024 14:54:34 4 02870 Therapeutic Exercise (1:1) completed Yesenia Blunt PTA [address], [place], [address], [facility] 02/08/2024 18:32:40 4 25145: Manual therapy completed Yesenia Blunt PTA [address], [place], [address], [facility] 02/08/2024 18:32:33 Imaging Results None recorded. Procedure Notes None recorded. Medical Equipment None Reported. Vitals None Recorded Social History Social History Observation Description Date Observed Sex Unknown 11/22/2024 Legal Sex Female No social history survey screeners recorded No social history SDOH screeners recorded Functional Status None recorded. No Functional Screening assessment recorded No Functional SDOH screeners recorded Mental Status None recorded. No Mental Screening assessment recorded No Mental SDOH screeners recorded Family History Nothing Reported. Medical History No medical history recorded. Gynecological HistoryNo gynecological history recorded. Obstetrics History GPAL:G 0 P 0 0 0 0 Past Encounters Encounter ID Performer Location Encounter Start Date Encounter Closed Date Diagnosis/Indication Diagnosis SNOMED-CT Code Diagnosis ICD10 Code Diagnosis IMO Codes Diagnosis Note [id number] [facility] [address] [place] [address] 02/08/2024 17:43:15 02/08/2024 18:39:34 Spondylosis and allied disorders 927940889 M47.384 [id number] Yesenia Blunt P[facility] [address] [place] [address] 02/15/2024 17:50:28 02/15/2024 18:40:01 Spondylosis and allied disorders 902542758 M47.909 [id number] [facility] [address] [place] [address] 02/22/2024 17:14:44 02/22/2024 18:19:05 Spondylosis and allied disorders 247709413 M47.816 Health Concerns Section Related Observation LastModified by Organization Detai ls LastModified Time None Recorded Concern Status LastModified by Organization Details LastModified Time None Recorded SDOH Concern Status LastModified by Organization Detai ls LastModified Time None Recorded Advance Directives Directive None Recorded Payers Insurance Date Sequence Insurance Name Policy Number Policy Haq Covered Member ID Haq Member ID Guarantor Name 02/22/[address] [place] [address] (MEDICAID HMO) [id number] Lori Mejia [id number] Lori Mejia Notes Date Note Type Note Provider Name and Address Organization Details Recorded Time 02/08/2024 text/html Pt reporting 5/10 LBP coming into therapy. Yesenia Blunt PTA [address], [place], [address], [facility] 02/08/2024 18:39:26 02/15/2024 text/html Pt reporting 5/10 LBP coming into therapy. States she sprained her left knee. Yesenia Blunt PTA [address], [place], [address], [facility] 02/15/2024 18:39:29 02/22/2024 text/html Pt reporting she isn't having any pain coming into therapy. States she's been working out with a sales trainer and feels she can continue with the exercises on her own. Also, she would prefer not to travel so far to therapy. Yesenia Blunt PTA [address], [place], [address], [place] [facility] 02/22/2024 18:18:56 Care Team Name Role Member ID Specialty Address Phone None Recorded. OBGyn Episode No OBEpisode recorded.
--- OUTSIDE RECORDS SUMMARY | 2025-11-20 17:44 | XMS_ITS | Encounter Summary ---
Author Organization [email or web address] Address [address] [place] [address] Care Team Providers Care Ultrasound Specialist Name Role Phone Harris Hanks MD Primary Care Prov ider Encounter Details Date Type Department Care Team ([facility] st Contact Info) Description 01/06/2025 Orders Only [facility] [address] [place], [place] [phone] Harris Hanks MD [address] [place] [address] Social History Tobacco Use Types Packs/Day Years [...] Description 12/04/2025 1:30 PM EST Office Visit [facility] [address] [place] [address] Harris Hanks MD [address] [place] [address] 04/17/2026 9:30 AM EDT Office Visit [facility] [address] [place] [address] Yazmin Espinosa documented as of this encounter Visit Diagnoses Not on filedocumented in this encounter Additional Health Concerns Assessment Noted Time PHQ-9 Depression Total Score: 4 12/28/19 25 11:24 AM EST documented as of this encounter Care Teams Ultrasound Specialist Relationship Specialty Start Date End Date Harris Hanks MD [address] [place] [address] PCP - General Internal Medicine 11/10/24 documented as of this encounter
--- OUTSIDE RECORDS SUMMARY | 2025-11-20 17:44 | XMS_ITS | Encounter Summary ---
Author Organization [employer] Address [address] [facility] [place] [address] Care Team Providers Care Bacteriology Teacher Name Role Phone Harris Hanks MD Primary Care Prov ider Encounter Details Date Type Department Care Team (Late st Contact Info) Description 12/27/2024 Orders Only [facility] [address] [place] [address] Provider, MD Gin Social History Tobacco Use [...] Upcoming Encounters Date Type Department Care Team ([facility] st Contact Info) Description 12/04/2025 1:30 PM EST Office Visit [facility] [address] [place] [address] Harris Hanks MD [address] [place] [address] 04/17/2026 9:30 AM EDT Office Visit [facility] [address] [place] [address] Yazmin Espinosa documented as of this encounter Procedures Procedure Name Priority Date/Time Associated Diagnosis Comments HM PAP/HPV Routine 04/09/2022 7:50 AM EDT documented in this encounter Results * HM PAP/HPV (04/09/2022 7:50 AM EDT) Historical Provider HEALTH MAINTENANCE Final Result documented in this encounter Visit Diagnoses Not on filedocumented in this encounter Care Teams Bacteriology Teacher Relationship Specialty Start Date End Date Harris Hanks MD [address] [place] [address] PCP - General Internal Medicine 11/10/24 documented as of this encounter
--- OUTSIDE RECORDS SUMMARY | 2025-11-20 17:44 | XMS_ITS | Clinical Summary ---
Author Organization [employer] Address [address] [place] [address] Care Team Providers Care Radiosonde Specialist Name Role Phone Harris Hanks MD [...] Encounters Date Type Department Care Team Description 10/30/2025 Orders Only [facility] External Provider, [facility] 10/17/2025 1:00 PM EST Office Visit [facility] [address] [place] [address] Lukas Coyne DMD Dental caries (Primary Dx) 10/13/2025 10:30 AM EST Office Visit [facility] [address] [place] [address] Lukas Coyne DMD Dental caries (Primary Dx) 10/13/2025 8:45 AM EST Office Visit [facility] [address] [place] [address] Yazmin Espinosa Dental calculus (Primary Dx); Dental plaque; Dental caries 08/30/2025 8:30 AM EDT Telemedicine [facility] [address] [place] [address] Harris Hanks MD Infiltrating ductal carcinoma of left breast (CMS/HCC) (HCC) (Primary Dx); Dietary counseling; Exercise counseling 08/30/2025 Travel 08/28/2025 Telephone [facility] [address] [place] [address] Harris Hanks MD chart prep 08/27/2025 Orders Only GENERIC EXTERNAL DATA DEPARTMENT Provider, Generic External Data from Last 3 Months Immunizations Immunization Administration Dates Next Due Moderna Covid-19 Vaccine + 01/14/2023 Family History Medical History Relation Name [...] Description 12/04/2025 1:30 PM EST Office Visit [facility] [address] [place], [place] [phone] Harris Hanks MD [address] [place] [address] 04/17/2026 9:30 AM EDT Office Visit [facility] [address] [place], [place] [phone] Yazmin Espinosa Health Maintenance Due Date Last [...] Influenza Vaccine (#1) 2025 6, 08/17/2012, 10/31/2003 Depression Monitoring 08/25/2025 02/23/2025, 025 Diagnostic Breast Imaging 11/30/20252024, 10/30/2025, 07/19/2025, Additional history exists Mammogram 11/30/2025 10/30/2025, 06/2025, 07/19/2025, Additional history exists Dental X-Ray: Bitewings 12/14/2025 [...] Name Priority Date/Time Associated Diagnosis Comments BI US BREAST LIMITED LEFT Routine 10/30/2025 8:12 AM EST BI MAMMOGRAM DIAGNOSTIC LEFT Routine 10/30/2025 8:04 AM EST CASE PRESENTATION, DETAILED AND EXTENSIVE TREATMENT [...] METABOLIC PANEL Routine 08/27/2025 10:44 AM EDT BITEWING - SINGLE RADIOGRAPHIC IMAGE Routine 12/13/2024 2:30 PM EST Secondary dental caries associated with failed or defective dental methodist Dental caries INTRAORAL - COMPLETE SERIES OF RADIOGRAPHIC IMAGES Routine 01/22/2024 11:00 AM EST HM PAP/HPV Routine 04/09/2022 7:50 AM EDT from Last 3 Months or Most Recently Relevant to Health Maintenance Results * BI US Breast Limited Left (10/30/2025 8:12 AM EST) Anatomical Region Laterality Modality Breast Left Ultrasound 10/30/2025 8:12 AM EST Narrative 10/30/2025 9:36 AM EST [facility] [address] [place], [place] [address] Ultrasound Report Signed Patient: Lori Mejia MR#: [id number] : 1995 Acct:[id number] Age/Sex: 30 / F ADM Date: 10/30/25 Loc: HO.MAMMO Attending Dr: Toshia Lacey MD Ordering Physician: Zach Zheng MD Date of Service: 10/30/25 Procedure(s): US Breast LT Limited Mamm Only Accession Number(s): [id number] cc: Harris Hanks MD; Zach Zheng MD Reason for Exam: R92.8 - Other abnormal and inconclusive findings on diagnostic imaging o... EXAMINATION(S): 1. MM DIAGNOSTIC DIGITAL BREAST TOMOSYNTHESIS, LEFT 2. TARGETED ULTRASOUND OF THE LEFT BREAST CLINICAL INFORMATION: -Bilateral diagnostic mammogram and left breast ultrasound on June 29, 2025 to evaluate left breast palpable concern. Report describes 2.0 x 1.3 x 0.6 cm mass at 3:00-4:00 at 6 cm from the nipple and 2.3 x 1.3 x 1.5 cm mass at 6:00 at 6 cm from the nipple. Given the ill-defined margins, it was difficult to assess exact size. -breast MRI on July 06, 2025. Study showed extensive mass involving the lower central and lower outer breast, extending from approximately 9.2 x 3.7 x 3.3 cm. - July 19, 2025: Ultrasound-guided needle core biopsy of the following sites: --Left breast mass at 3:00: Invasive ductal carcinoma. Butterfly clip placed. 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 Open coil clip placed. -Patient received four cycles of chemotherapy. Today's study is for local reevaluation. Case discussed with Dr. Lacey prior to today's studies. COMPARISON: Breast MRI on July 06, 2025. Ultrasound-guided needle core biopsy on July 19, 2025. Bilateral diagnostic mammogram and left breast ultrasound on June 29, 2025. TECHNIQUE: Digital breast tomosynthesis is performed in both the mediolateral oblique and craniocaudal views along with computer-aided detection (CAD). Synthesized 2D images are generated from the tomosynthesis. FINDINGS: BREAST COMPOSITION: There are scattered areas of fibroglandular density. LEFT BREAST: Redemonstration of two dominant areas of the focal asymmetries associated with architectural distortion, containing biopsy clips, located in the lateral breast at approximately 3 o'clock position posterior depth and lower breast at approximately 6 o'clock position posterior depth. Difficult to evaluate for interval changes given ill-defined margins of the focal asymmetries. Targeted ultrasound of the left breast was performed at in the vicinity of the biopsy markers. -Survey centered at 3 o'clock position 7 cm from the nipple: The biopsy clip is identified. The surrounding tissue is heterogeneous, and it is difficult to identify the margins of a mass. -Survey centered at 6 o'clock position at 6 cm from the nipple. The biopsy clip is identified, therefore, this likely correlates with the biopsy location labeled at 5:00 on the prior images. The surrounding tissues heterogeneous, and is difficult to identify the margins of a mass. US/US Breast LT Limited Mamm Only IMPRESSION: LEFT BREAST: Patient with biopsy-proven invasive ductal carcinoma at two locations (3:00 and 6:00). Abnormal findings of the tissue adjacent to the biopsy clips on the mammogram and ultrasound persist, however, given the ill-defined appearance, it is difficult to determine exact margins for size comparison. Bilateral breast MRI is recommended to better assess response to the treatment. ASSESSMENT: BI-RADS: Category 6: Known Biopsy-Proven Malignancy RECOMMENDATION: Additional Imaging required Results were provided to the patient at time of visit by the technologist. This patient's information was entered into a reminder system with a target due date for their next mammogram. Electronically signed by: Sanam Wellington MD 10/30/2025 09:33 AM [facility] Dictated By: Sanam Wellington MD Signed By: <Electronically signed by Sanam Wellington MD in OV> 10/30/25932 DD/ 1 TD/TT: 10/30/25833 Lipstick Molder: Procedure Note Donotuseinterpreter, Image - 10/30/2025 [facility] [address] [place] [address] Ultrasound Report Signed Patient: Lori Mejia JMR#: [id number] : 1995Acct:[id number] Age/Sex: 30 / FADM Date: 10/30/25 Loc: MAMMO Attending Dr: Toshia Lacey MD Ordering Physician: Zach Zheng MD Date of Service: 10/30/25 Procedure(s): US Breast LT Limited Mamm Only Accession Number(s): [id number] cc: Harris Hanks MD; Zach Zheng MD Reason for Exam: R92.8 - Other abnormal and inconclusive findings ondiagnostic imaging o... EXAMINATION(S): 1. MM DIAGNOSTIC DIGITAL BREAST TOMOSYNTHESIS, LEFT 2. TARGETED ULTRASOUND OF THE LEFT BREAST CLINICAL INFORMATION: -Bilateral diagnostic mammogram and left breast ultrasound on June 29, 2025 to evaluate left breast palpable concern. Report describes 2.0 x 1.3 x 0.6 cm mass at 3:00-4:00 at 6 cm from the nipple and 2.3 x 1.3 x 1.5 cm mass at 6:00 at 6 cm from the nipple. Given the ill-defined margins, it was difficult to assess exact size. -breast MRI on July 06, 2025. Study showed extensive mass involving the lower central and lower outer breast, extending from approximately 9.2 x 3.7 x 3.3 cm. - July 19, 2025: Ultrasound-guided needle core biopsy of the following sites: --Left breast mass at 3:00: Invasive ductal carcinoma. Butterfly clip placed. 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 Open coil clip placed. -Patient received four cycles of chemotherapy. Today's study is for local reevaluation. Case discussed with Dr. Lacey prior to today's studies. COMPARISON: Breast MRI on July 06, 2025. Ultrasound-guided needle core biopsy on July 19, 2025. Bilateral diagnostic mammogram and left breast ultrasound on June 29, 2025. TECHNIQUE: Digital breast tomosynthesis is performed in both the mediolateral oblique and craniocaudal views along with computer-aided detection (CAD). Synthesized 2D images are generated from the tomosynthesis. FINDINGS: BREAST COMPOSITION: There are scattered areas of fibroglandular density. LEFT BREAST: Redemonstration of two dominant areas of the focal asymmetries associated with architectural distortion, containing biopsy clips, located in the lateral breast at approximately 3 o'clock position posterior depth and lower breast at approximately 6 o'clock position posterior depth. Difficult to evaluate for interval changes given ill-defined margins of the focal asymmetries. Targeted ultrasound of the left breast was performed at in the vicinity of the biopsy markers. -Survey centered at 3 o'clock position 7 cm from the nipple: The biopsy clip is identified. The surrounding tissue is heterogeneous, and it is difficult to identify the margins of a mass. -Survey centered at 6 o'clock position at 6 cm from the nipple. The biopsy clip is identified, therefore, this likely correlates with the biopsy location labeled at 5:00 on the prior images. The surrounding tissues heterogeneous, and is difficult to identify the margins of a mass. US/US Breast LT Limited Mamm Only IMPRESSION: LEFT BREAST: Patient with biopsy-proven invasive ductal carcinoma at two locations (3:00 and 6:00). Abnormal findings of the tissue adjacent to the biopsy clips on the mammogram and ultrasound persist, however, given the ill-defined appearance, it is difficult to determine exact margins for size comparison. Bilateral breast MRI is recommended to better assess response to the treatment. ASSESSMENT: BI-RADS: Category 6: Known Biopsy-Proven Malignancy RECOMMENDATION: Additional Imaging required Results were provided to the patient at time of visit by the technologist. This patient's information was entered into a reminder system with a target due date for their next mammogram. Electronically signed by: Sanam Wellington MD 10/30/2025 09:33 AM EST Dictated By: Sanam Wellington MD Signed By: <Electronically signed by Sanam Wellington MD in OV> 10/30/25932 DD/ 1 TD/TT: 10/30/25833 Lipstick Molder: [facility] External Provider IMG US PROCEDURES Edited Result - Final * BI Mammogram Diagnostic Left (10/30/2025 8:04 AM EST) Anatomical Region Laterality Modality Breast Left Mammography 10/30/2025 8:04 AM EST Narrative 10/30/2025 9:36 AM EST [facility] [address] [place], [place] [address] Mammography Report Signed Patient: Lori Mejia MR#: [id number] 384 : 1995 Acct:[id number] Age/Sex: 30 / F ADM Date: 10/30/25 Loc: HO.MAMMO Attending Dr: Toshia Lacey MD Ordering Physician: Kamila Brink NP Results: 6Kn own Biopsy Proven Malignancy Date of Service: 10/30/25 Follow Up: Additional Imagi ng Procedure(s): MM diagnostic mammo unilat LT Accession Number(s): [id number] cc: Harris Hanks MD; Kamila Brink NP Reason For Exam: assess response to treatment EXAMINATION(S): 1. MM DIAGNOSTIC DIGITAL BREAST TOMOSYNTHESIS, LEFT 2. TARGETED ULTRASOUND OF THE LEFT BREAST CLINICAL INFORMATION: -Bilateral diagnostic mammogram and left breast ultrasound on June 29, 2025 to evaluate left breast palpable concern. Report describes 2.0 x 1.3 x 0.6 cm mass at 3:00-4:00 at 6 cm from the nipple and 2.3 x 1.3 x 1.5 cm mass at 6:00 at 6 cm from the nipple. Given the ill-defined margins, it was difficult to assess exact size. -breast MRI on July 06, 2025. Study showed extensive mass involving the lower central and lower outer breast, extending from approximately 9.2 x 3.7 x 3.3 cm. - July 19, 2025: Ultrasound-guided needle core biopsy of the following sites: --Left breast mass at 3:00: Invasive ductal carcinoma. Butterfly clip placed. 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 Open coil clip placed. -Patient received four cycles of chemotherapy. Today's study is for local reevaluation. Case discussed with Dr. Lacey prior to today's studies. COMPARISON: Breast MRI on July 06, 2025. Ultrasound-guided needle core biopsy on July 19, 2025. Bilateral diagnostic mammogram and left breast ultrasound on June 29, 2025. TECHNIQUE: Digital breast tomosynthesis is performed in both the mediolateral oblique and craniocaudal views along with computer-aided detection (CAD). Synthesized 2D images are generated from the tomosynthesis. FINDINGS: BREAST COMPOSITION: There are scattered areas of fibroglandular density. LEFT BREAST: Redemonstration of two dominant areas of the focal asymmetries associated with architectural distortion, containing biopsy clips, located in the lateral breast at approximately 3 o'clock position posterior depth and lower breast at approximately 6 o'clock position posterior depth. Difficult to evaluate for interval changes given ill-defined margins of the focal asymmetries. Targeted ultrasound of the left breast was performed at in the vicinity of the biopsy markers. -Survey centered at 3 o'clock position 7 cm from the nipple: The biopsy clip is identified. The surrounding tissue is heterogeneous, and it is difficult to identify the margins of a mass. -Survey centered at 6 o'clock position at 6 cm from the nipple. The biopsy clip is identified, therefore, this likely correlates with the biopsy location labeled at 5:00 on the prior images. The surrounding tissues heterogeneous, and is difficult to identify the margins of a mass. MM/MM diagnostic mammo unilat LT IMPRESSION: LEFT BREAST: Patient with biopsy-proven invasive ductal carcinoma at two locations (3:00 and 6:00). Abnormal findings of the tissue adjacent to the biopsy clips on the mammogram and ultrasound persist, however, given the ill-defined appearance, it is difficult to determine exact margins for size comparison. Bilateral breast MRI is recommended to better assess response to the treatment. ASSESSMENT: BI-RADS: Category 6: Known Biopsy-Proven Malignancy RECOMMENDATION: Additional Imaging required Results were provided to the patient at time of visit by the technologist. This patient's information was entered into a reminder system with a target due date for their next mammogram. Electronically signed by: Sanam Wellington MD 10/30/2025 09:33 AM [facility] Dictated By: Sanam Wellington MD Signed By: <Electronically signed by Sanam Wellington MD in OV> 10/30/2533 DD/ 3 TD/TT: 10/30/25813 Lipstick Molder: Procedure Note Donotuseinterpreter, Image - 10/30/2025 [facility] [address] [place] [address] Mammography Report Signed Patient: Lori Mejia JMR#: [id number] : 1995Acct:[id number] Age/Sex: 30 / FADM Date: 10/30/25 Loc: HO.MAMMO Attending Dr: Toshia Lacey MD Ordering Physician: Kamila Brink NPResults: 6Kn own Biopsy Proven Malignancy Date of Service: 10/30/25Follow Up: Additional Imagi ng Procedure(s): MM diagnostic mammo unilat LT Accession Number(s): [id number] cc: Harris Hanks MD; Kamila Brink NP Reason For Exam: assess response to treatment EXAMINATION(S): 1. MM DIAGNOSTIC DIGITAL BREAST TOMOSYNTHESIS, LEFT 2. TARGETED ULTRASOUND OF THE LEFT BREAST CLINICAL INFORMATION: -Bilateral diagnostic mammogram and left breast ultrasound on June 29, 2025 to evaluate left breast palpable concern. Report describes 2.0 x 1.3 x 0.6 cm mass at 3:00-4:00 at 6 cm from the nipple and 2.3 x 1.3 x 1.5 cm mass at 6:00 at 6 cm from the nipple. Given the ill-defined margins, it was difficult to assess exact size. -breast MRI on July 06, 2025. Study showed extensive mass involving the lower central and lower outer breast, extending from approximately 9.2 x 3.7 x 3.3 cm. - July 19, 2025: Ultrasound-guided needle core biopsy of the following sites: --Left breast mass at 3:00: Invasive ductal carcinoma. Butterfly clip placed. 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 Open coil clip placed. -Patient received four cycles of chemotherapy. Today's study is for local reevaluation. Case discussed with Dr. Lacey prior to today's studies. COMPARISON: Breast MRI on July 06, 2025. Ultrasound-guided needle core biopsy on July 19, 2025. Bilateral diagnostic mammogram and left breast ultrasound on June 29, 2025. TECHNIQUE: Digital breast tomosynthesis is performed in both the mediolateral oblique and craniocaudal views along with computer-aided detection (CAD). Synthesized 2D images are generated from the tomosynthesis. FINDINGS: BREAST COMPOSITION: There are scattered areas of fibroglandular density. LEFT BREAST: Redemonstration of two dominant areas of the focal asymmetries associated with architectural distortion, containing biopsy clips, located in the lateral breast at approximately 3 o'clock position posterior depth and lower breast at approximately 6 o'clock position posterior depth. Difficult to evaluate for interval changes given ill-defined margins of the focal asymmetries. Targeted ultrasound of the left breast was performed at in the vicinity of the biopsy markers. -Survey centered at 3 o'clock position 7 cm from the nipple: The biopsy clip is identified. The surrounding tissue is heterogeneous, and it is difficult to identify the margins of a mass. -Survey centered at 6 o'clock position at 6 cm from the nipple. The biopsy clip is identified, therefore, this likely correlates with the biopsy location labeled at 5:00 on the prior images. The surrounding tissues heterogeneous, and is difficult to identify the margins of a mass. MM/MM diagnostic mammo unilat LT IMPRESSION: LEFT BREAST: Patient with biopsy-proven invasive ductal carcinoma at two locations (3:00 and 6:00). Abnormal findings of the tissue adjacent to the biopsy clips on the mammogram and ultrasound persist, however, given the ill-defined appearance, it is difficult to determine exact margins for size comparison. Bilateral breast MRI is recommended to better assess response to the treatment. ASSESSMENT: BI-RADS: Category 6: Known Biopsy-Proven Malignancy RECOMMENDATION: Additional Imaging required Results were provided to the patient at time of visit by the technologist. This patient's information was entered into a reminder system with a target due date for their next mammogram. Electronically signed by: Sanam Wellington MD 10/30/2025 09:33 AM [facility] Dictated By: Sanam Wellington MD Signed By: <Electronically signed by Sanam Wellington MD in OV> 10/30/2533 DD/ 3 TD/TT: 10/30/25813 Lipstick Molder: [facility] External Provider IMG BI PROCEDURES Edited Result - Final * CT Head w/o Contrast (08/27/2025 3:01 PM EDT) Anatomical Region Laterality Modality Head, Neck Computed Tomogra phy 08/27/2025 3:01 PM EDT Narrative 08/27/2025 3:02 PM EDT [address] [address] [address] Scan Report Signed Patient: Lori Mejia MR#: [id number] 384 : 1995 Acct:[id number] Age/Sex: 29 / F ADM Date: 08/27/25 Loc: HO.ED Attending Dr: Ordering Physician: Jocelyne Michaud PA-C Date of Service: 08/27/25 Procedure(s): CT head/brain wo IV con Accession Number(s): [id number] cc: Jocelyne Michaud PA-C; Harris Hanks MD Report Number: [id number]: Total DLP = 612.00 mGy-cm Reason for Exam: dizziness, numbness tingling of face CLINICAL HISTORY: dizziness, numbness tingling of face --- Additional Notes or Special Instructions: currently on chemotherapy for breast cancer CT head without contrast Comparison: None available Findings: No acute hemorrhage. No extra-axial fluid collection. No hydrocephalus, mass-effect or herniation. Ugillen-white differentiation is maintained. White matter is within [...] 08/27/25 1502 DD/ 1501 TD/TT: 08/27/25 1501 Lipstick Molder: Procedure Note Donotuseinterpreter, Image - 08/27/[address] [address] [address] Scan Report Signed Patient: Lori Mejia JMR#: [id number] : 1995Acct:[id number] Age/Sex: 29 / FADM Date: 08/27/25 Loc: HO.ED Attending Dr: Ordering Physician: Jocelyne Michaud PA-C Date of Service: 08/27/25 Procedure(s): CT head/brain wo IV con Accession Number(s): [id number] cc: Jocelyne Michaud PA-C; Harris Hakns MD Report Number: [id number]: Total DLP = 612.00 mGy-cm Reason for [...] 08/27/25 1502 DD/ 1501 TD/TT: 08/27/25 1501 Lipstick Molder: [facility] External Provider IMG CT PROCEDURES Edited Result - Final * Urinalysis w/reflex microscopic (08/27/2025 1:43 PM EDT) Color Urine Yellow [facility] Appearance Urine Clear [facility] PH 7.0 5.0 - 9.0 [facility] Glucose Urine UA Negative Negative mg/dL [facility] Urine Blood Negative Negative [facility] Specific [place] - Urine <=1.005 1.005 - 1.025 [facility] Urine Protein Negative Neg-Trace mg/dL [facility] Urine Ketones Negative Negative mg/dL [facility] Nitrite Urine Negative Negative [facility] Leukocyte Esterase Urine Negative Negative [facility] 08/27/2025 1:43 PM EDT 08/27/2025 1:46 PM EDT Narrative [facility] - 08/27/2025 1:53 PM EDT 1341Urine, Clean Catch us Generic External Data Provider LAB URINE ORDERAB LES Final Result [facility] [address] [place] [phone] [phone] * (ABNORMAL) Complete Blood Count Manual Diff (08/27/2025 10:44 AM EDT) White Blood Count 6.9 4.8 - 10.8 X10*3/uL [facility] Red Blood Count 4.17(L) 4.20 - 5.50 X10*6/uL [facility] Hemoglobin 12.4 12.0 - 16.0 g/dl [facility] Hematocrit 36.7(L) 37.0 - 47.0 % [facility] Mean Corpuscular Volume 88.0 80.0 - 98.0 fL [facility] Mean Corpuscular Hemoglobin 29.7 27.0 - 33.0 pg [facility] Mean Corpuscular HGB Conc 33.8 31.0 - 35.0 g/dl [facility] Red Cell Distribution Width 13.5 11.0 - 16.0 % [facility] Platelet Count 226 160 - 400 X10*3/uL [facility] Mean Platelet Volume 9.7 9.4 - 12.3 [facility] NRBC Pct Auto 0.0 0.0 - 0.2 /100WBC [facility] NRBC Abs Auto 0.000 0.0 - 0.012 X10*3/uL [facility] Neutrophils % Manual 81(H) 45 - 73 % [facility] Band Neutrophils Percent 0(L) 3 - 5 % [facility] Lymphocytes Percent Manual 17(L) 20 - 40 % [facility] EOSINOPHILS % MANUAL 2 0 - 4 % [facility] NEUTROPHILS ABSOLUTE MANUAL 5.6 2.0 - 8.3 X10*3/uL [facility] LYMPHOCYTES ABSOLUTE MANUAL 1.2 1.2 - 4.9 X10*3/uL [facility] EOSINOPHILS ABSOLUTE MANUAL 0.1 0.0 - 0.4 X10*3/uL [facility] Platelet Estimate NORMAL N[facility]AL [facility] Platelet Morphology Comment NORMAL [facility] RBC Morphology NORMAL [facility] 08/27/2025 10:4 4 AM EDT 08/27/2025 10:50 AM EDT us Generic External Data Provider LAB BLOOD ORDERAB LES Final Result [facility] [address] [place] [phone] * (ABNORMAL) CBC auto differential (08/27/2025 10:44 AM EDT) White Blood Count 6.9 4.8 - 10.8 X10*3/uL [facility] Red Blood Count 4.17(L) 4.20 - 5.50 X10*6/uL [facility] Hemoglobin 12.4 12.0 - 16.0 g/dl [facility] Hematocrit 36.7(L) 37.0 - 47.0 % [facility] Mean Corpuscular Volume 88.0 80.0 - 98.0 fL [facility] Mean Corpuscular Hemoglobin 29.7 27.0 - 33.0 pg [facility] Mean Corpuscular HGB Conc 33.8 31.0 - 35.0 g/dl [facility] Red Cell Distribution Width 13.5 11.0 - 16.0 % [facility] Platelet Count 226 160 - 400 X10*3/uL [facility] Mean Platelet Volume 9.7 9.4 - 12.3 fL [facility] Neutrophils Percent Auto 70.6 45 - 73 % [facility] Imm Gran Pct Auto 10.0(H) 0.0 - 0.4 % [facility] Lymphocytes Percent Auto 16.4(L) 20 - 40 % [facility] Monocytes Percent Auto 0.3(L) 2 - 11 % [facility] Eosinophils Percent Auto 1.7 0 - 4 % [facility] Basophils Percent Auto 1.0 0 - 2 % [facility] NRBC Pct Auto 0.0 0.0 - 0.2 /100WBC [facility] Neutrophils Absolute Auto 4.8 2.0 - 8.3 x10*3/uL [facility] Imm Gran Abs Auto 0.69(H) 0.00 - 0.03 X10*3/uL [facility] Lymphocytes Absolute Auto 1.1(L) 1.2 - 4.9 X10*3/uL [facility] Monocytes Absolute Auto 0.0(L) 0.1 - 1.2 X10*3/uL [facility] Eosinophils Absolute Auto 0.1 0.0 - 0.4 X10*3/uL [facility] Basophils Absolute Auto 0.1 0.0 - 0.2 X10*3/uL [facility] NRBC Abs Auto 0.000 0.0 - 0.012 X10*3/uL [facility] 08/27/2025 10:4 4 AM EDT 08/27/2025 10:50 AM EDT us Generic External Data Provider LAB BLOOD ORDERAB LES Edited Result - Final [facility] [address] [place] [phone] * hCG, Total, Quantitative (08/27/2025 10:44 AM EDT) HCG Quantitative <2 mIU/mL [facility] Comment:Weeks post LMP Appro ximate hCG(Last Menstrual Period) Range (mIU/ml)3 - 4 weeks 9 - 1304 - 5 weeks 75 - 2,6005 - 6 weeks 850 - 20,8006 - 7 weeks 4000 - 100,2006 - 12 weeks 11,500 - 289,71230 - 16 weeks 18,300 - 137,89287 - 29 weeks (2nd trimester) 1,400 - 53,25612 - 41 weeks (3rd trimester) 940 - [...] Provider LAB BLOOD ORDERAB LES Final Result [facility] [address] [place] [phone] * Basic Metabolic Panel (08/27/2025 10:44 AM EDT) Sodium 138 135 - 145 mmol/L [facility] Potassium 3.8 3.3 - 5.1 mmol/L [facility] Chloride 105 96 - 108 mmol/L [facility] Carbon Dioxide 25 22 - 29 mmol/L [facility] Anion Gap 12 12 - 20 [facility] Urea Nitrogen (BUN) 9 9 - 16 mg/dL [facility] Creatinine, Serum 0.58 0.5 - 1.4 mg/dL [facility] Creatinine Clr Calc Pharmacy 154.7 [facility] Comment:Provided height and weight: 165.1 cm,82.7 kg.eGFR (calculated from the MDRD study equation) and eCrCl(calculated from the Cockcroft-Gault equation) are based ondifferent parameters and may not yield comparable results.If eCrCl result is absurd, please check patient'sheight/weight. Estimated Glomerular Filt Rate >60 [facility] Comment:Chronic Kidney Disea se: Estimated GFR < 60 mL/min/[id number] Kidney Disease: Estimated GFR < 15 mL/min/1.73m2 Glucose 99 60 - 115 mg/dL [facility] Calcium 9.4 8.4 - 10.2 mg/dL [facility] 08/27/2025 10:4 4 AM EDT 08/27/2025 10:50 AM EDT Generic External Data Provider LAB BLOOD ORDERAB LES Final Result [facility] [address] [place] [phone] * HM PAP/HPV (04/09/2022 7:50 AM EDT) Historical Provider MD HEALTH MAINTENANCE Final Result from Last 3 Months or Most Recently Relevant to Health Maintenance Insurance [facility] , [address] [place] [address] [facility] MEDICAID [facility] ADULT Care Teams [employer] Specialist Relationship Specialty Start Date End Date Harris Hanks MD [address] [place] [phone] PCP - General Internal Medicine 11/10/24
== END 2025-11-20 15:51 | disposition home or self-care (01) ==
LOC: HO.ED 15:50
PROVIDERS: Physician Assistant Medical; Emergency Provider Emergency Medicine
DX: J10.1 Influenza due to other identified influenza virus with other respiratory manifestations (principal); R11.2 Nausea with vomiting, unspecified; R19.7 Diarrhea, unspecified; R10.23 Pelvic and perineal pain bilateral; Z03.818 Encounter for observation for suspected exposure to other biological agents ruled out
CPT/HCPCS: 36415; 80053; 83735; 84702; 85025; 87637; 99282; 99283